=== PATIENT | male | born 1990 | race Caucasian/White ===

== ENCOUNTER 2024-03-04 13:31 | Emergency (ER) | payer MEDICAID, SELFPAY ==
--- OUTSIDE RECORDS SUMMARY | 2024-03-04 13:37 | XMS_ITS | Encounter Summary ---
Author Organization [facility] Address [address] [place] [id number] Care Team Providers Care Remote Computer Terminal Operator Name Role Phone Allyssa Vogel PA-C Primary Care Provider +1- [phone] Reason for Visit * Reason Comments Med Refill Encounter Details Date Type Department Care Team (Late st Contact Info) Description 01/06/2020 Refill [facility] [address]60 [facility] [address] [place] [address] Nathaniel Coats MD 1760 [facility] [address] [place] [address] Social History Tobacco Use Types Packs/Day Years Used Date Smoking Tobacco: Every Day Cigarettes Smokeless Tobacco: Never Alcohol Use Standard Drinks/Week Comments Yes 0 (1 standard drink = 0.6 oz pur e alcohol) PHQ-2 Answer Date Recorded Retired Total Score 7 11/20/2019 Sex and Gender Information Value Date Recorded Sex Assigned at Not on file Legal Sex Male 10:15 AM EST Gender Identity Not on file Sexual Orientation Not on file documented as of this encounter Plan of Treatment Not on file documented as of this encounter Visit Diagnoses Not on filedocumented in this encounter Care Teams Remote Computer Terminal Operator Relationship Specialty Start Date End Date Allyssa Vogel PA-C [address] [facility] [address] [place] [address] PCP - General Family Medicine 08/12/16 documented as of this encounter
--- OUTSIDE RECORDS SUMMARY | 2024-03-04 13:37 | XMS_ITS | Encounter Summary ---
Author Organization Healthcare Address [address] [place] [address] Care Team Providers Care Deputy Administrator Name Role Phone Bijan Mancera MD Unavailable [phone] Encounter Details Date Type Department Care Team (Late Contact Info) Description 10/04/2023 Orders Only External Location [address] [place] [address] Provider, External Social History Tobacco Use Types Packs/Day Years Used Date Smoking Tobacco: Every Day Alcohol Use Standard Drinks/Week Comments Yes 0 (1 standard drink = 0.6 oz pur e alcohol) Sex and Gender Information Value Date Recorded Sex Assigned at Not on file Legal Sex Male 7:42 PM EDT Gender Identity Not on file Sexual Orientation Not on file documented as of this encounter Plan of Treatment Upcoming Encounters Date Type Department Care Team (Late st Contact Info) Description 03/21/2024 7:45 AM EST Clinical Support [facility] [address] [facility] [facility] [address] [place] [address] 03/21/2024 9:20 AM EST Office Visit [facility] [address] [place] [address] Jean Greer MD [address] [place] [address] 03/21/2024 10:00 AM EST Office Visit [facility] [place] [address] [place] [address] Surgeon, Transplant Liver documented as of this encounter Procedures Procedure Name Priority Date/Time Associated Diagnosis Comments US OUTSIDE IMAGES 10/04/2023 10:00 AM EDT documented in this encounter Results * US OUTSIDE IMAGES (10/04/2023 10:00 AM EDT) Anatomical Region Laterality Modality Ultrasound 10/04/2023 10:0 0 AM EDT us External Provider IMG US PROCEDURES Final Result documented in this encounter Visit Diagnoses Not on filedocumented in this encounter Care Teams Deputy Administrator Relationship Specialty Start Date End Date Bijan Mancera MD [address] [place] [address] Referring Physician Gastroenterology 02/23/24 documented as of this encounter
--- OUTSIDE RECORDS SUMMARY | 2024-03-04 13:37 | XMS_ITS | Encounter Summary ---
Author Organization [facility] Address [address] [place] [address] Care Team Providers Care Keyboarding Clerk Name Role Phone Allyssa Vogel PA-C Primary Care Provider [phone]- [phone] Reason for Visit * Reason Comments Follow-up Labs in August showed l ow testosterone and is here to discuss Encounter Details Date Type Department Care Team (Late st Contact Info) Description 11/02/2016 2:15 PM EDT Office Visit [facility] [address] [place] [address] [place] [phone] Shantanu Sánchez PA [address] [address] Obesity (BMI 35.0-39.9 without comorbidity) (Primary Dx); Primary insomnia Social History Tobacco Use Types Packs/Day Years Used Date Smoking Tobacco: Every Day Smokeless Tobacco: Never Alcohol Use Standard Drinks/Week Comments Yes 0 (1 standard drink = 0.6 oz pur e alcohol) Sex and Gender Information Value Date Recorded Sex Assigned at Not on file Legal Sex Male 10:15 AM EST Gender Identity Not on file Sexual Orientation Not on file documented as of this encounter Last Filed Vital Signs Vital Sign Reading Time Taken Comments Blood Pressure 148/92 11/02/2016 1:48 PM EDT Pulse 80 11/02/2016 1:48 PM EDT Temperature - - Respiratory Rate 14 11/02/2016 1:48 PM EDT Oxygen Saturation 98% 11/02/2016 1:48 PM EDT Inhaled Oxygen Concentration - - Weight 134 kg (294 lb 9.6 oz) 11/02/2016 1:48 PM EDT Height 188 cm (6' 2 ) 11/02/2016 1:48 PM EDT Body Mass Index 37.82 11/02/2016 1:48 PM EDT documented in this encounter Progress Notes * Shantanu Sánchez PA - 11/02/2016 2:15 PM EDT Sundeep De Guzman is a 26 y.o. male History of Present Illness Patient 26-year-old white male who comes in for follow-up of lab work, and blood work showed a testosterone level over 500 but a free testosterone at 3.1. Patient's lipid level showed a low HDL 29. Fatigue no energy states she's having significant been weight is 294 pounds, he's fatigue throughout the day. No source breath no chest pain. Patient pleasant insomnia trouble falling asleep staying asleep only sleeps 4-5 hours per night, his tried trazodone with minimal success patient states she has trouble staying asleep once falling asleep. States he feels tired he wakes up in the morning like try something else rather than trazodone. Denies any SI/HI. Patient does have some snoring at night The following portions of the patient's history were reviewed and updated as appropriate: allergies, current medications, past social history and problem list Review of Systems Constitutional: Negative for appetite change, diaphoresis, fatigue and unexpected weight change. Eyes: Negative for visual disturbance. Respiratory: Negative for cough, chest tightness and shortness of breath. Cardiovascular: Negative for chest pain, palpitations and leg swelling. Gastrointestinal: Negative for diarrhea, nausea and vomiting. Endocrine: Negative for polydipsia, polyphagia and polyuria. Skin: Negative for color change and rash. Neurological: Negative for dizziness, syncope, weakness, light-headedness, numbness and headaches. Objective Vitals: 11/02/16 1348 BP: 148/92 Pulse: 80 Resp: 14 SpO2: 98% Physical Exam Constitutional: He appears well-developed and well-nourished. Neck: Neck supple. No JVD present. No thyromegaly present. Cardiovascular: Normal rate, regular rhythm, normal heart sounds, intact distal pulses and normal pulses. No murmur heard. Pulmonary/Chest: Effort normal and breath sounds normal. No respiratory distress. Abdominal: Soft. Bowel sounds are normal. There is no hepatosplenomegaly. There is no tenderness. Musculoskeletal: He exhibits no edema. Lymphadenopathy: He has no cervical adenopathy. Neurological: No sensory deficit. Skin: Skin is warm and dry. He is not diaphoretic. Nursing note and vitals reviewed. Assessment/Plan Diagnoses and all orders for this visit: Obesity (BMI 35.0-39.9 without comorbidity) Primary insomnia - hydrOXYzine (VISTARIL) 50 MG capsule; Take 1 capsule by mouth 3 (Three) Times a Day As Needed forItching. # Phentermine 37.5mg qd #30 x 2 refills Long discussion with patient about weight loss informed patient if he can lose 10% of his body weight should improve his free testosterone level, gave him a weight loss goal of 30 pounds in the next 3-4 months. counseled patient on diet and exercise discussed ways to improve. Follow-up one month #2 discussed ways to improve sleep start hydroxyzine 50 mg 1 by mouth daily at bedtime dispense 30??2 refills documented in this encounter Plan of Treatment Not on file documented as of this encounter Visit Diagnoses Diagnosis Obesity (BMI 35.0-39.9 without comorbidity)- Primary Primary insomnia Persistent disorder of initiating or maintaining sleep documented in this encounter Care Teams Keyboarding Clerk Relationship Specialty Start Date End Date Allyssa Vogel, MARYCARMENC [address] [place] [address] PCP - General Family Medicine 08/12/16 documented as of this encounter
--- OUTSIDE RECORDS SUMMARY | 2024-03-04 13:37 | XMS_ITS | Encounter Summary ---
Author Organization [facility] Address [address] [place] [id number] Care Team Providers Care Gyroscope Technician Name Role Phone Allyssa Vogel PA-C Primary Care Provider [phone]- [phone] Reason for Visit * Reason Comments Med Refill Obesity Encounter Details Date Type Department Care Team (Late st Contact Info) Description 07/07/2021 4:15 PM EDT Telemedicine [facility] [address] [place] [phone] Allyssa Vogel PA-C [address] [address] Obesity (BMI 30-39.9) (Primary Dx) Social History Tobacco Use Types Packs/Day Years [...] on file documented as of this encounter Progress Notes * Allyssa Vogel PA-C - 07/07/2021 4:15 PM EDT Subjective Hunter De Guzman is a 30 y.o. male Med Refill and Obesity History of Present Illness Patient presents and consents for telehealth/video visit examination. Patient is being seen today for follow-up on obesity he is due for refills of his phentermine. He states that this medicine has been continue to work well for him he ran out about a month ago, he finds it works best if he takes 1 every other day. He is continuing to try to follow a low calorie dietto lose weight but continues to be in obese range with his BMI, his weight today is 298. He denies any adverse effects from his medication. Video visit 15 minutes in length. The following portions of the patient's history were reviewed and updated as appropriate: allergies, current medications, past social history and problem list Review of Systems Constitutional: Positive for activity change and appetite change. Negative for unexpected weight change. Respiratory: Negative. Cardiovascular: Negative for chest pain. Gastrointestinal: Negative for abdominal distention, abdominal pain, diarrhea and nausea. Psychiatric/Behavioral: Negative for dysphoric mood. The patient is not nervous/anxious. Objective There were no vitals filed for this visit. BMI today is 36. Physical Exam Vitals reviewed: Weight 298. Constitutional: General: He is not in acute distress. Appearance: Normal appearance. He is well-developed. He is obese. He is not ill- appearing, toxic-appearing or diaphoretic. Comments: Obesity noted HENT: Head: Normocephalic and atraumatic. Eyes: Conjunctiva/sclera: Conjunctivae normal. Neck: Thyroid: No thyromegaly. Pulmonary: Effort: Pulmonary effort is normal. Skin: General: Skin is dry. Coloration: Skin is not pale. Findings: No erythema or rash. Neurological: Mental Status: He is alert and oriented to person, place, and time. Coordination: Coordination normal. Psychiatric: Attention and Perception: He is attentive. Mood and Affect: Mood normal. Speech: Speech normal. Behavior: Behavior normal. Thought Content: Thought content normal. Judgment: Judgment normal. Assessment/Plan Diagnoses and all orders for this visit: 1. Obesity (BMI 30-39.9) (Primary) Will send prescription for phentermine 37.5 mg tablets 1 daily for weight loss due to obesity #30 with 3 refills and advised patient to follow-up in the office in 3 months for recheck of weight and for annual physical. As part of this patient's treatment plan, patient will be prescribed controlled substances. The patient has been made aware of appropriate use of such medications, including potential risk of somnolence, limited ability to drive and /or work safely, and potential for dependence or overdose. It has also been made clear that these medications are for use by this patient only, without concomitant use of alcohol or other substances unless prescribed.Controlled substance status of medication discussed with patient, discussed risks of medication including abuse potential and diversion potential andneed to follow up for reevaluation appointment in order to receive further refills. Part of this note may be an electronic binder cutter hand/translation of spoken language to printed textusing the Paytrailation System. documented in this encounter Plan of Treatment Not on file documented as of this encounter Visit Diagnoses Diagnosis Obesity (BMI 30-39.9)- Primary documented in this encounter Care Teams Gyroscope Technician Relationship Specialty Start Date End Date Allyssa Vogel PA-C [address] [place] [address] PCP - General Family Medicine 08/12/16 documented as of this encounter
--- OUTSIDE RECORDS SUMMARY | 2024-03-04 13:37 | XMS_ITS | Encounter Summary ---
Author Organization [facility] Address [address] [place] [id number] Care Team Providers Care Storage Management Architect Name Role Phone Allyssa Vogel PA-C Primary Care Provider [phone]- [phone] Reason for Visit * Reason Comments Med Refill Encounter Details Date Type Department Care Team (Late st Contact Info) Description 08/16/2023 Refill [facility] [address] [facility] [address] [place] [phone] Allyssa Vogel PA-C [address] [facility] [address] [place], [place] [id number] Social History Tobacco Use Types Packs/Day Years Used Date Smoking Tobacco: Every Day Cigarettes Smokeless Tobacco: Never Alcohol Use Standard Drinks/Week Comments Yes 0 (1 standard drink = 0.6 oz pur e alcohol) PHQ-2 Answer Date Recorded Retired PHQ-9: Brief Depression Severity Measure Score 0 01/12/2022 Abuse Screen Answer Date Recorded Unsafe at Home or Work/School Not on file Feels Threatened by Someone? Not on file 01/2023 Does Anyone Keep You from Co ntacting Others or Doint Things Outside the Home? Not on file 01/19/2023 Physical Sign of Abuse Present Not on file 1 Housing Stability Answer Date Recorded Current Living Arrangements Not on file 01/10 Potentially Unsafe Housing Conditions Not on mica e 01/19/2023 Family and Community Support Answer Jose e Recorded Help with Day-to-Day Activities Not on file 01/19/2023 Lonely or Isolated Not on file 01/19/2023 Employment Answer Date Recorded Do you want help finding or keeping work or a rere b? Not on file 01/19/2023 Disabilities Answer Date Recorded Concentrating, Remembering, or Making Decisions Difficulty Not on file 01/19/2023 Doing Errands Independently Difficulty Not on fi le 01/19/2023 Education Answer Date Recorded Help with school or training? Not on file Preferred Language Not on file 01/19/2023 PHQ-2 Answer Date Recorded Retired PHQ-9: Brief Depression Severity Measure Score 0 06/21/2023 Sex and Gender Information Value Date Recorded Sex Assigned at Not on file Legal Sex Male 10:15 AM EST Gender Identity Not on file Sexual Orientation Not on file documented as of this encounter Plan of Treatment Not on file documented as of this encounter Visit Diagnoses Not on filedocumented in this encounter Care Teams Storage Management Architect Relationship Specialty Start Date End Date Allyssa Vogel, PADanielleC [address] [facility] [place] [address] PCP - General Family Medicine 08/12/16 documented as of this encounter
--- OUTSIDE RECORDS SUMMARY | 2024-03-04 13:37 | XMS_ITS | Encounter Summary ---
Author Organization [facility] Address [address] [place] [id number] Care Team Providers Care Trolley Car Overhauler Name Role Phone Allyssa Vogel PA-C Primary Care Provider +1- [phone] Reason for Visit * Reason Onset Date Comments Med Refill 09/06/2020 Encounter Details Date Type Department Care Team (Late st Contact Info) Description 09/06/2020 Refill [facility] 1760 [facility] [address] [place] [phone] Shantanu Sánchez PA [address] [place], [place] [id number] Obesity (BMI 30-39.9) Social History Tobacco Use Types Packs/Day Years [...] on file documented as of this encounter Miscellaneous Notes * Telephone Encounter - Nell Parra MA - 09/06/2020 4:08 PM EDT Office visit with Marcellus documented in this encounter Plan of Treatment Not on file documented as of this encounter Visit Diagnoses Diagnosis Obesity (BMI 30-39.9) documented in this encounter Care Teams Trolley Car Overhauler Relationship Specialty Start Date End Date Allyssa Vogel PA-C [address] [place] [address] PCP - General Family Medicine 08/12/16 documented as of this encounter
--- OUTSIDE RECORDS SUMMARY | 2024-03-04 13:37 | XMS_ITS | Encounter Summary ---
[facility] Address [address] [place] [phone] Care Team Providers Care Plate Mounter Name Role Phone Allyssa Vogel PA-C Primary Care Provider +1- [phone] Encounter Details Date Type Department Care Team (Late st Contact Info) Description 07/03/2021 Telephone [facility]ILY MEDICINE [address] [facility] [address] [place] [phone] Allyssa Vogel PA-C [address] [facility] [address] [place] [address] Social History Tobacco Use Types Packs/Day [...] on filedocumented in this encounter Care Teams Plate Mounter Relationship Specialty Start Date End Date Allyssa Vogel PA-C [address] [facility] [address] [place] [address] PCP - General Family Medicine 08/12/16 documented as of this encounter
--- OUTSIDE RECORDS SUMMARY | 2024-03-04 13:37 | XMS_ITS | Encounter Summary ---
[facility] Address [address] [place] [phone] Care Team Providers Care Clerical Office Worker Name Role Phone Allyssa Vogel PA-C Primary Care Provider +1- [phone] Reason for Visit * Reason Comments Obesity RF phentermine Encounter Details Date Type Department Care Team (Late st Contact Info) Description 01/07/2021 1:00 PM EDT Office Visit [facility] 1760 [facility] [address] [place] [phone] Shantanu Sánchez PA [address] [facility] [address] [place] [address] Class 2 obesity with body mass index (BMI) of 35.0 to 35.9 in adult, unspecified obesity type, unspecified whether serious comorbidity present (Primary Dx) Social History Tobacco Use Types [...] Sign Reading Time Taken Comments Blood Pressure 146/82 01/07/2021 1:09 PM EDT Pulse 92 01/07/2021 1:09 PM EDT Temperature 36 ??C (96.8 ??F) 01/07/2021 1:09 PM EDT Respiratory Rate 16 01/07/2021 1:09 PM EDT Oxygen Saturation 98% 01/07/2021 1:09 PM EDT Inhaled Oxygen Concentration - - Weight 135 kg (298 lb 3.2 oz) 01/07/2021 1:09 PM EDT Height 193 cm (6' 3.98 ) 01/07/2021 1:09 PM EDT Body Mass Index 36.31 01/07/2021 1:09 PM EDT documented in this encounter Progress Notes * Shantanu Sánchez PA - 01/07/2021 1:00 PM EDT Subjective Hunter De Guzman is a 30 y.o. male Obesity (RF phentermine ) History of Present Illness Patient is a 30-year-old white male who comes in complaining of obesity BMI is 36.31 has gained 6 pounds since last visit he states his diet has not been successful, drinking more soda no shortness of breath no chest pain feels tired fatigue no energy The following portions of the patient's history [...] weakness, light-headedness, numbness and headaches. Objective Vitals: 01/07/21 1309 BP: 146/82 Pulse: 92 Resp: 16 Temp: 96.8 ??F (36 ??C) SpO2: 98% Physical Exam Vitals and nursing note reviewed. Constitutional: Appearance: He is well-developed. He is not diaphoretic. Neck: Thyroid: No thyromegaly. Vascular: No JVD. Cardiovascular: Rate and Rhythm: Normal rate and regular rhythm. Pulses: Normal pulses. Heart sounds: No murmur heard. Pulmonary: Effort: No respiratory distress. Musculoskeletal: Cervical back: Neck supple. Lymphadenopathy: Cervical: No cervical adenopathy. Skin: General: Skin is warm and dry. Assessment/Plan Diagnoses and all orders for this visit: 1. Class 2 obesity with body mass index (BMI) of 35.0 to 35.9 in adult, unspecified obesity type, unspecified whether serious comorbidity present (Primary) #1 phentermine 37.5 mg 1 p.o. every day dispense 30x3 refills Plan schedule patient about diet and exercise low-carb low calorie diet exercise 3-5 times per day for 30 minutes I spent 15 minutes in patient care: Reviewing records prior to the visit, examining the patient, entering orders and documentation Please note that portions of this document were completed with a voice recognition program. Effortswere made to edit the dictations, but occasionally words are mis-transcribed documented in this encounter Plan of Treatment Not on file documented as of this encounter Visit Diagnoses Diagnosis Class 2 obesity with body mass index (BMI) of 35.0 to 35.9 in adult, unspecified obesity type, unspecified whether serious comorbidity present- Primary documented in this encounter Care Teams Clerical Office Worker Relationship Specialty Start Date End Date Allyssa Vogel PA-C [address] [place] [address] PCP - General Family Medicine 08/12/16 documented as of this encounter
--- OUTSIDE RECORDS SUMMARY | 2024-03-04 13:37 | XMS_ITS | Encounter Summary ---
Author [facility] Address [address] [place] [phone] Care Team Providers Care Printer Floor Covering Assistant Name Role Phone Allyssa Vogel PA-C Primary Care Provider +1- [phone] Encounter Details Date Type Department Care Team (Late st Contact Info) Description 04/21/2016 Telephone [facility]ILY MEDICINE [address]60 [facility] [address] [place] [phone] Allyssa Vogel PA-C [address]60 [facility] [address] [place] [address] Social History Tobacco Use Types Packs/Day Years Used Date Smoking Tobacco: Never Assessed Sex and Gender Information Value Date Recorded Sex Assigned at Not on file Legal Sex Male 10:15 AM EST Gender Identity Not on file Sexual Orientation Not on file documented as of this encounter Plan of Treatment Not on file documented as of this encounter Visit Diagnoses Not on filedocumented in this encounter Care Teams Printer Floor Covering Assistant Relationship Specialty Start Date End Date Allyssa Vogel PA-C [address] [facility] [address] [place] [address] PCP - General Family Medicine 08/12/16 documented as of this encounter
--- OUTSIDE RECORDS SUMMARY | 2024-03-04 13:37 | XMS_ITS | Encounter Summary ---
Author Organization [facility] Address [address] [place] [id number] Care Team Providers Care Lining Setter Name Role Phone Allyssa Vogel PA-C Primary Care Provider +1- [phone] Reason for Visit * Reason Comments Obesity RF phentermine Encounter Details Date Type Department Care Team (Late st Contact Info) Description 01/09/2020 4:00 PM EDT Office Visit [facility] FAMILY [facility]INE [address] [facility] [address] [place] [phone] Shantanu Sánchez PA [address] [facility] [address] [place] [phone] Morbid (severe) obesity due to excess calories (Primary Dx) Social History Tobacco Use Types [...] Sign Reading Time Taken Comments Blood Pressure 130/86 01/09/2020 2:37 PM EDT Pulse 72 01/09/2020 2:37 PM EDT Temperature 36.3 ??C (97.3 ??F) 01/09/2020 2:37 PM ED T Respiratory Rate 16 01/09/2020 2:37 PM EDT Oxygen Saturation 98% 01/09/2020 2:37 PM EDT Inhaled Oxygen Concentration - - Weight 128 kg (282 lb) 01/09/2020 2:37 PM EDT Height 193 cm (6' 3.98 ) 01/09/2020 2:37 PM EDT Body Mass Index 34.34 01/09/2020 2:37 PM EDT documented in this encounter Progress Notes * Shantanu Sánchez PA - 01/09/2020 4:00 PM EDT Subjective Hunter De Guzman is a 29 y.o. male Obesity (RF phentermine) History of Present Illness 29-year-old white male who comes in for follow-up of obesity patient lost weight he is doing well exercising lost over 5 pounds last visit patient is watching his diet and exercise feels good on medication he states he is tried exercise low-carb low calorie diet. Patient is trying to lose weight etc. BMI is 34.34 The following portions of the patient's history [...] weakness, light-headedness, numbness and headaches. Objective Vitals: 01/09/20 1437 BP: 130/86 Pulse: 72 Resp: 16 Temp: 97.3 ??F (36.3 ??C) SpO2: 98% Physical Exam Vitals signs and nursing note reviewed. Constitutional: Appearance: He is well-developed. He is not diaphoretic. Neck: Musculoskeletal: Neck supple. Thyroid: No thyromegaly. Vascular: No JVD. Cardiovascular: Rate and Rhythm: Normal rate and regular rhythm. Pulses: Normal pulses. Heart sounds: Normal heart sounds. No murmur. Pulmonary: Effort: Pulmonary effort is normal. No respiratory distress. Breath sounds: Normal breath sounds. Abdominal: General: Bowel sounds are normal. Palpations: Abdomen is soft. Tenderness: There is no abdominal tenderness. Lymphadenopathy: Cervical: No cervical adenopathy. Skin: General: Skin is warm and dry. Neurological: Sensory: No sensory deficit. Assessment/Plan Hunter was seen today for obesity. Diagnoses and all orders for this visit: Morbid (severe) obesity due to excess calories (CMS/[facility]) #1 phentermine 37.5 mg 1 pill dispense 30??2 refills Spent 16 minutes with patient discussing treatment plan, long-term treatment plan, short-term treatment. Discussed low-carb low calorie diet exercise 3-5 times per week documented in this encounter Plan of Treatment Not on file documented as of this encounter Visit Diagnoses Diagnosis Morbid (severe) obesity due to excess calories- Primary documented in this encounter Care Teams Lining Setter Relationship Specialty Start Date End Date Allyssa Vogel, MARYCARMENC [address] [facility] [address] [place] [address] PCP - General Family Medicine 08/12/16 documented as of this encounter
--- OUTSIDE RECORDS SUMMARY | 2024-03-04 13:37 | XMS_ITS | Encounter Summary ---
Author Organization [facility] Address [address] [place] [id number] Care Team Providers Care White Washer Name Role Phone Allyssa Vogel PA-C Primary Care Provider [phone]- [phone] Reason for Visit * Reason Onset Date Comments Med Refill 10/02/2019 Encounter Details Date Type Department Care Team (Late st Contact Info) Description 10/02/2019 Refill [facility] FAMILY MEDICINE [address] [facility] [address] [place] [phone] Nathaniel Coats MD [address] [facility] [address] [place] [address] Class 2 obesity with body [...] encounter Miscellaneous Notes * Telephone Encounter - Radha Regalado MA - 10/02/2019 3:46 PM EDT Allyssa completed video visit with patient today and needs Phentermine signed off. This was calledinto the patients pharm voicemail Fwd to Dr. V to sign off documented in this encounter Plan of Treatment Not on file documented as of this encounter Visit Diagnoses Diagnosis Class 2 obesity with body mass index (BMI) of 35.0 to 35.9 in adult, unspecified obesity type, unspecified whether serious comorbidity present- Primary documented in this encounter Care Teams White Washer Relationship Specialty Start Date End Date Allyssa Vogel, MARYCARMENC [address] [place] [address] PCP - General Family Medicine 08/12/16 documented as of this encounter
--- OUTSIDE RECORDS SUMMARY | 2024-03-04 13:37 | XMS_ITS | Encounter Summary ---
[facility] Address [address] [place] [id number] Care Team Providers Care Associate Professor Of Biblical Studies Name Role Phone Allyssa Vogel PA-C Primary Care Provider +1- [phone] Encounter Details Date Type Department Care Team (Late st Contact Info) Description 01/17/2019 Telephone [facility] FAMILY MEDICINE [address] [facility] [address] [place] [phone] Shantanu Sánchez PA [address] [facility] [address] [place] [phone] Social History Tobacco Use Types Packs/Day Years [...] Telephone Encounter - Nell Parra MA - 01/17/2019 2:19 PM EDT I clarified with Cruz that phentermine should've been qd-not qhs. * Telephone Encounter - Nell Parra MA - 01/17/2019 2:19 PM EDT ----- Message from Bharti Smith sent at 01/17/2019 2:10 PM EDT ----- Contact: ANAI/CORNELL KINGSTON., CRUZ, PT. WAS SEEN TODAY. CRUZ IS NEEDING A CLARIFICATION ON: FASTIN, 37 1/2 MG., TAKEN 1 @ BEDTIME; ?INGTHIS: NOT TO BE TAKEN @ BEDTIME/HE WILL BE UP ALL NIGHT. CONTACT CRUZ BACK @ [facility]. documented in this encounter Plan of Treatment Not on file documented as of this encounter Visit Diagnoses Not on filedocumented in this encounter Care Teams Associate Professor Of Biblical Studies Relationship Specialty Start Date End Date Allyssa Vogel, PADanielleC [address] [facility] [address] PCP - General Family Medicine 08/12/16 documented as of this encounter
--- OUTSIDE RECORDS SUMMARY | 2024-03-04 13:37 | XMS_ITS | Encounter Summary ---
Author Organization [facility] Address [address] [place] [address] Care Team Providers Care Real Estate Investment Analyst Name Role Phone Bijan Mancera MD Unavailable [phone] Reason for Referral * Consultation (Routine) - Pending Review Specialty Diagnoses / Procedures Referred By Contac t Referred To Contact Transplant Diagnoses End-stage liver disease (CMS/HCC) Morteza Etienne MD [address] [address] Phone: tel: fax: [facility] [address] [address] Phone: tel: fax: Referral ID Status Reason Start Date Expiration Date Visits Requested Visits Authorized [id number] Pending Review Specialty Services Required 4 08/25/2025 1 1 Reason for Visit * Reason Comments Appointment Scheduling Encounter Details Date Type Department Care Team (Late st Contact Info) Description 02/24/2024 Telephone [facility] [address] [phone] Connie Fonseca [facility] [address] [place] [address] Appointment (Scheduling) Social History Tobacco Use Types Packs/Day Years [...] encounter Miscellaneous Notes * Telephone Encounter - Connie Fonseca - 02/24/2024 2:16 PM EST Called to schedule New Patient Pre-Liver Initial Clinic Evaluation - spoke to Ms Barr - scheduled for 03/21/2024 at 7:30am. Mailed New Patient paperwork per request. Notified referring. Additional records and images requested from [facility]. documented in this encounter Plan of Treatment Upcoming Encounters Date Type Department Care Team (Late st Contact Info) Description 03/21/2024 7:45 AM EST Clinical Support [facility] [place] [address] [facility] [address] [place] [address] 03/21/2024 9:20 AM EST Office Visit [facility] [place] [address] [place] [address] Jean Greer MD [address] [facility] [address] [place] [address] 03/21/2024 10:00 AM EST Office Visit [facility] [address] [facility] [address] [place] [address] Surgeon, Transplant Liver Scheduled Orders Name Type Priority Associated Diagnoses Orde r Schedule ABO/Rh Lab Routine End-stage liver disease (CMS/HCC) Expected: 03/21/2024 (Approximate), Expires: 08/23/2025 Alpha fetoprotein, serum Lab Routine End-stage liver disease (CMS/HCC) Expected: 03/21/2024 (Approximate), Expires: 08/23/2025 Hemogram (CBC) Lab Routine End-stage liver disease (CMS/HCC) Expected: 03/21/2024 (Approximate), Expires: 08/23/2025 Comprehensive metabolic panel Lab Routine End-stage liver disease (CMS/HCC) Expected: 03/21/2024 (Approximate), Expires: 08/23/2025 Protime-INR Lab Routine End-stage liver disease (CMS/HCC) Expected: 03/21/2024 (Approximate), Expires: 08/23/2025 Comprehensive Urine Drug Screening, Qualitative Assay, >= 27 Drug Classes Lab Routine End-stage liver disease (CMS/HCC) Expected: 03/21/2024 (Approximate), Expires: 08/23/2025 Nicotine Cotinine Metabolite Lab Routine End-stage liver disease (CMS/HCC) Expected: 03/21/2024 (Approximate), Expires: 08/23/2025 Pain Management, Quantitative Urine Drug Testing Lab Routine End-stage liver disease (CMS/HCC) Expected: 03/21/2024 (Approximate), Expires: 08/23/2025 Alcohol Urine Lab Routine End-stage liver disease (CMS/HCC) Expected: 03/21/2024 (Approximate), Expires: 08/23/2025 Hepatitis C Antibody Lab Routine End-stage liver disease (CMS/HCC) Expected: 03/21/2024 (Approximate), Expires: 08/23/2025 Hepatitis B Surface Antigen Lab Routine End-stage liver disease (CMS/HCC) Expected: 03/21/2024 (Approximate), Expires: 08/23/2025 HEPATITIS B SURFACE ANTIBODY, QUANTITATIVE Lab Routine End-stage liver disease (CMS/HCC) Expected: 03/21/2024 (Approximate), Expires: 08/23/2025 Hepatitis A Antibody IgG Lab Routine End-stage liver disease (CMS/HCC) Expected: 03/21/2024 (Approximate), Expires: 08/23/2025 Scheduled Referrals Name Type Priority Associated Diagnoses Order Schedule Initial Clinic Evaluation - Transplant Hepatology Outpatient Referral Routine End-stage liver disease (CMS/HCC) 1 Occurrences starting 02/24/2024 until 08/23/2025 documented as of this encounter Visit Diagnoses Diagnosis End-stage liver disease (CMS/HCC)- Primary Other sequelae of chronic liver disease documented in this encounter Care Teams Real Estate Investment Analyst Relationship Specialty Start Date End Date Bijan Mancera MD [address] [place] [address] Referring Physician Gastroenterology 02/23/24 documented as of this encounter
--- OUTSIDE RECORDS SUMMARY | 2024-03-04 13:37 | XMS_ITS | Encounter Summary ---
Author Organization [facility] Address [address] [place] [id number] Care Team Providers Care Semiconductor Manufacturing Technician Name Role Phone Allyssa Vogel PA-C Primary Care Provider [phone] Reason for Visit * Reason Comments Hypertension Stress Encounter Details Date Type Department Care Team (Late st Contact Info) Description 06/21/2023 1:30 PM EDT Office Visit [facility]ILY MEDICINE [address] [place] [address] [place] [phone] Allyssa Vogel PA-C [address] [facility] [address] [place] [phone] Bronchitis (Primary Dx); Hypertension, unspecified type; Fatigue, unspecified type Social History Tobacco Use Types Packs/Day Years Used Date Smoking Tobacco: Every Day Cigarettes Smokeless Tobacco: Never Tobacco Cessation:Ready to Q uit: No; Counseling Given: Yes Alcohol Use Standard Drinks/Week Comments Yes 0 [...] Sign Reading Time Taken Comments Blood Pressure 152/100 06/21/2023 1:31 PM EDT Pulse 100 06/21/2023 1:31 PM EDT Temperature - - Respiratory Rate 20 06/21/2023 1:31 PM EDT Oxygen Saturation 99% 06/21/2023 1:31 PM EDT Inhaled Oxygen Concentration - - Weight 149 kg (329 lb) 06/21/2023 1:31 PM EDT Height 190.5 cm (6' 3 ) 06/21/2023 1:31 PM EDT Body Mass Index 41.12 06/21/2023 1:31 PM EDT documented in this encounter Progress Notes * Allyssa Vogel PA-C - 06/21/2023 1:30 PM EDT Subjective Hunter De Guzman is a 32 y.o. male Hypertension and Stress History of Present Illness Hunter De Guzman, 1990, presents to discuss high blood pressure and stress. The patient went to [facility] last week to get phentermine for weight loss. They checked his blood pressure, and it was high. He has been to [facility] before, and it has never been a problem. He felt absolutely horrible that day and the next day he felt the same. He feels good other than a sinus infection. He was dizzy and felt like he was drunk, and he had a challenging time focusing and concentrating and felt foggy headed. He has gained weight. He has a lot of stress. He is not taking any decongestants. He denies any chest pain or heart pain. He has been coughing up yellow phlegm. He thinks a lot of it is coming from his weight. He has cut out drinking pop, and he does not smoke cigarettes anymore, but he does vape. He was not given a prescription for phentermine. He does not like taking medications. He does not sleep well. He snores loudly, and he normally sleeps around 5 hours a night. He has a family history of high blood pressure. The following portions of the patient's history were reviewed and updated as appropriate: allergies, current medications, past social history and problem list Review of Systems Constitutional: Negative for fatigue and unexpected weight change. HENT: Positive for congestion. Respiratory: Positive for cough. Negative for chest tightness and shortness of breath. Cardiovascular: Negative for chest pain, palpitations and leg swelling. Gastrointestinal: Negative for nausea. Skin: Negative for color change and rash. Neurological: Positive for light-headedness and headaches. Negative for dizziness, syncope and weakness. Psychiatric/Behavioral: Positive for confusion, decreased concentration and sleep disturbance. Objective Vitals: 06/21/23 1331 BP: 152/100 Pulse: 100 Resp: 20 SpO2: 99% Physical Exam Vitals and nursing note reviewed. Constitutional: General: He is not in acute distress. Appearance: Normal appearance. He is well-developed. He is obese. He is not ill- appearing, toxic-appearing or diaphoretic. Comments: BMI41 HENT: Head: Normocephalic and atraumatic. Mouth/Throat: Pharynx: Posterior oropharyngeal erythema present. Neck: Vascular: No carotid bruit or JVD. Cardiovascular: Rate and Rhythm: Normal rate and regular rhythm. Pulses: Normal pulses. Heart sounds: Normal heart sounds. No murmur heard. Pulmonary: Effort: Pulmonary effort is normal. No respiratory distress. Breath sounds: Wheezing present. Abdominal: Palpations: Abdomen is soft. Tenderness: There is no abdominal tenderness. Skin: General: Skin is warm and dry. Neurological: Mental Status: He is alert. Psychiatric: Mood and Affect: Mood normal. Behavior: Behavior normal. Thought Content: Thought content normal. Assessment & Plan Diagnoses and all orders for this visit: 1. Bronchitis (Primary) 2. Hypertension, unspecified type 3. Fatigue, unspecified type Other orders - losartan (Cozaar) 100 MG tablet; Take 1 tablet by mouth Daily. For BP Dispense: 30 tablet; Refill: 1 - promethazine-dextromethorphan (PROMETHAZINE-DM) 6.25-15 MG/5ML syrup; Take 5 mL by mouth 4 (Four)Times a Day As Needed for Cough. Dispense: 180 mL; Refill: 0 - cefdinir (OMNICEF) 300 MG capsule; Take 1 capsule by mouth 2 (Two) Times a Day. Dispense: 20 capsule; Refill: 0 1. Bronchitis and sinus infection. I will prescribe an antibiotic and cough syrup. 2. Hypertension. His blood pressure is elevated today. It will take about 2 weeks for his blood pressure to stabilize on the blood pressure medicine. I will start him on a blood pressure medication once a day. 3. Weight management. He was recommended to get back on phentermine. The patient will follow up in 3 weeks. Scribed for Allyssa Vogel PA-C by Baldomero Rogers 06/21/2023 14:19 EDT documented in this encounter Plan of Treatment Not on file documented as of this encounter Visit Diagnoses Diagnosis Bronchitis- Primary Bronchitis, not specified as acute or chronic Hypertension, unspecified type Fatigue, unspecified type documented in this encounter Care Teams Semiconductor Manufacturing Technician Relationship Specialty Start Date End Date Allyssa Vogel PA-C [address] [place] [address] PCP - General Family Medicine 08/12/16 documented as of this encounter
--- OUTSIDE RECORDS SUMMARY | 2024-03-04 13:37 | XMS_ITS | Encounter Summary ---
Author Organization [facility] Address [address] [place] [id number] Care Team Providers Care Aviation Safety Inspector Name Role Phone Allyssa Vogel PA-C Primary Care Provider [phone]- [phone] Reason for Visit * Reason Comments Fatigue C/o fatigue and tir edness all the time; x 2-3 months; says he just doesn't feel right ; has two young kids and said he's never slept well but he just feels different now Anxiety Encounter Details Date Type Department Care Team (Late st Contact Info) Description 11/08/2019 9:00 AM EDT Office Visit [facility] [address] [facility] [address] [place] [address] Shantanu Sánchez PA [address] [facility] [address] [place], [place] [id number] Chest pain, unspecified type (Primary Dx); Anxiety; Fatigue, unspecified type; Gastroesophageal reflux disease without esophagitis Social History Tobacco Use Types Packs/Day Years [...] Sign Reading Time Taken Comments Blood Pressure 146/90 11/08/2019 9:38 AM EDT Pulse 85 11/08/2019 9:38 AM EDT Temperature 36.5 ??C (97.7 ??F) 11/08/2019 9:38 AM ED T Respiratory Rate 15 11/08/2019 9:38 AM EDT Oxygen Saturation 99% 11/08/2019 9:38 AM EDT Inhaled Oxygen Concentration - - Weight 129 kg (284 lb 9.6 oz) 11/08/2019 9:38 AM EDT Height 193 cm (6' 4 ) 11/08/2019 9:38 AM EDT Body Mass Index 34.64 11/08/2019 9:38 AM EDT documented in this encounter Progress Notes * Shantanu Sánchez PA - 11/08/2019 9:00 AM EDTAssociated Order(s): ECG 12 Lead Post-Procedure Diagnose(s): Chest pain, unspecified type Sundeep De Guzman is a 29 y.o. male Fatigue (C/o fatigue and tiredness all the time; x 2-3 months; says he just doesn't feel right ;has two young kids and said he's never slept well but he just feels different now) and Anxiety History of Present Illness Is a pleasant 29-year-old white male who comes in complaining of being tired fatigue for the last 2to 3 months he said he just does not feel right he has had trouble with sleep he just has any energy anxiety has been worse been a lot of stress lately states it causes him trouble sleeping at night fatigue tired he did have some midsternal chest pain radiating the back is also had some episodes ofGERD his last episode of chest pain lasts about 30 minutes he is been having severe heartburn in the last 48 to 72 hours is a smoker smokes 2 packs/day. The following portions of the patient's history [...] weakness, light-headedness, numbness and headaches. Objective Vitals: 11/08/19 0938 BP: 146/90 Pulse: 85 Resp: 15 Temp: 97.7 ??F (36.5 ??C) SpO2: 99% Physical Exam Constitutional: He appears well-developed and [...] not diaphoretic. Nursing note and vitals reviewed. ECG 12 Lead Date/Time: 11/08/2019 4:18 PM Performed by: Shantanu Sánchez PA Authorized by: Shantanu Sánchez PA Comparison: not compared with previous ECG Rhythm: sinus rhythm Rate: normal QRS axis: normal Clinical impression: non-specific ECG Comments: Normal sinus rhythm nonspecific T wave changes Assessment/Plan Hunter was seen today for fatigue and anxiety. Diagnoses and all orders for this visit: Chest pain, unspecified type - Cancel: ECG 12 Lead Anxiety Fatigue, unspecified type - Comprehensive Metabolic Panel; Future - TSH; Future - CBC (No Diff); Future - CBC (No Diff) - TSH - Comprehensive Metabolic Panel Gastroesophageal reflux disease without esophagitis - omeprazole (priLOSEC) 40 MG capsule; Take 1 capsule by mouth Daily. Other orders - ECG 12 Lead #1 discussed ways to reduce anxiety, stop smoking 2. Check labs 3. Start omeprazole 40 mg 1 p.o. every day dispense 30??3 refills Follow-up in 2 weeks * Nathaniel Coats MD - 11/08/2019 9:00 AM EDT I have reviewed the notes, assessments, and/or procedures performed by Marcellus Sánchez PA-C, I concur with his documentation of Hunter De Guzman. documented in this encounter Plan of Treatment Not on file documented as of this encounter Procedures Procedure Name Priority Date/Time Associated Diagnosis Comments ECG 12-LEAD Routine 11/08/2019 9:00 AM EDT Chest pain, unspecified type CBC (NO DIFF) Routine 11/08/2019 12:00 AM EDT Fatigue, unspecified type TSH Routine 11/08/2019 12:00 AM EDT Fatigue, unspecified type COMPREHENSIVE METABOLIC PANEL Routine 11/08/2019 12:00 AM EDT Fatigue, unspecified type documented in this encounter Results * ECG 12-LEAD (11/08/2019 9:00 AM EDT) José Bharti Smith - 11/08/2019 9:00 AM EDT Shantanu Sánchez PA ? 11/08/2019 ??4:23 PM ECG 12 Lead Date/Time: 11/08/2019 4:18 PM Performed by: Shantanu Sánchez PA Authorized by: Shantanu Sánchez PA Comparison: not compared with previous ECG Rhythm: sinus rhythm Rate: normal QRS axis: normal Clinical impression: non-specific ECG Comments: Normal sinus rhythm nonspecific T wave changes Procedure Note hSantanu Sánchez PA - 11/08/2019 9:00 AM EDT Subjective Hunter De Guzman is a 29 y.o. male Fatigue (C/o fatigue and tiredness all the time; x 2-3 months; says hejust doesn't feel right ; has two young kids and said he's never sleptwell but he just feels different now) and Anxiety History of Present Illness Is a pleasant 29-year-old white male who comes in complaining of beingtired fatigue for the last 2 to 3 months he said he just does not feelright he has had trouble with sleep he just has any energy anxiety hasbeen worse been a lot of stress lately states it causes him troublesleeping at night fatigue tired he did have some midsternal chest painradiating the back is also had some episodes of GERD his last episode ofchest pain lasts about 30 minutes he is been having severe heartburn inthe last 48 to 72 hours is a smoker smokes 2 packs/day. The following portions of the patient's history were reviewed and updatedas appropriate: allergies, current medications, past social history andproblem list Review of Systems Constitutional: Negative for appetite change, diaphoresis, fatigue andunexpected weight change. Eyes: Negative for visual disturbance. Respiratory: Negative for cough, chest tightness and shortness of breath. Cardiovascular: Negative for chest pain, palpitations and leg swelling. Gastrointestinal: Negative for diarrhea, nausea and vomiting. Endocrine: Negative for polydipsia, polyphagia and polyuria. Skin: Negative for color change and rash. Neurological: Negative for dizziness, syncope, weakness, light- headedness,numbness and headaches. Objective Vitals: 11/08/19 0938 BP: 146/90 Pulse: 85 Resp: 15 Temp: 97.7 ??F (36.5 ??C) SpO2: 99% Physical Exam Constitutional: He appears well-developed and well-nourished. Neck: Neck supple. No JVD present. No thyromegaly present. Cardiovascular: Normal rate, regular rhythm, normal heart sounds, intactdistal pulses and normal pulses. No murmur heard. Pulmonary/Chest: Effort normal and breath sounds normal. No respiratorydistress. Abdominal: Soft. Bowel sounds are normal. There is no hepatosplenomegaly.There is no tenderness. Musculoskeletal: He exhibits no edema. Lymphadenopathy: He has no cervical adenopathy. Neurological: No sensory deficit. Skin: Skin is warm and dry. He is not diaphoretic. Nursing note and vitals reviewed. ECG 12 Lead Date/Time: 11/08/2019 4:18 PM Performed by: Shantanu Sánchez PA Authorized by: Shantanu Sánchez PA Comparison: not compared with previous ECG Rhythm: sinus rhythm Rate: normal QRS axis: normal Clinical impression: non-specific ECG Comments: Normal sinus rhythm nonspecific T wave changes Assessment/Plan Hunter was seen today for fatigue and anxiety. Diagnoses and all orders for this visit: Chest pain, unspecified type - Cancel: ECG 12 Lead Anxiety Fatigue, unspecified type - Comprehensive Metabolic Panel; Future - TSH; Future - CBC (No Diff); Future - CBC (No Diff) - TSH - Comprehensive Metabolic Panel Gastroesophageal reflux disease without esophagitis - omeprazole (priLOSEC) 40 MG capsule; Take 1 capsule by mouthDaily. Other orders - ECG 12 Lead #1 discussed ways to reduce anxiety, stop smoking 2. Check labs 3. Start omeprazole 40 mg 1 p.o. every day dispense 30? 3 refills Follow-up in 2 weeks Shantanu GRAMAJO ECG ORDERABLES Final R esult * (ABNORMAL) CBC (No Diff) (11/08/2019 12:00 AM EDT) WBC 10.49 3.40 - 10.80 10*3/mm3 [facility] RBC 5.96(H) 4.14 - 5.80 10*6/mm3 [facility] Hemoglobin 16.8 13.0 - 17.7 g/dL [facility] Hematocrit 50.2 37.5 - 51.0 % [facility] MCV 84.2 79.0 - 97.0 fL [facility] MCH 28.2 26.6 - 33.0 pg [facility] MCHC 33.5 31.5 - 35.7 g/dL [facility] RDW 13.7 12.3 - 15.4 % [facility] Platelets 149 140 - 450 10*3/mm3 [facility] Blood 11/08/2019 11/08/2019 Comment:BLOOD Narrative [facility] (AMBULATORY) - 11/08/2019 8:08 PM EDT Performed at: ??[address] ??[id number] Special Effects Specialist: Nathaniel Yanez MD, Phone: ??[phone] Sh[facility] GR[facility] BLOOD ORDERABLES Fi nal Result [facility] (AMBULATORY) [address] [place] [address], [facility] [address] [place] [address], * TSH (11/08/2019 12:00 AM EDT) TSH 0.593 0.270 - 4.200 uIU/mL [facility] Blood 11/08/2019 11/08/2019 Comment:BLOOD Narrative [facility] ([facility]BULATORY) - 11/08/2019 8:08 PM EDT Performed at: ??[address] ??[id number] Special Effects Specialist: Nathaniel Yanez MD, Phone: ??[phone] Shantanu GRAMAJO LAB BLOOD ORDERABLES Fi nal Result [facility] (AMBULATORY) [address] [place] [address], [facility] [address] [place] [address], * (ABNORMAL) Comprehensive Metabolic Panel (11/08/2019 12:00 AM EDT) Pathologist [facility] Glucose 87 65 - 99 mg/dL [facility] BUN 13 6 - 20 mg/dL [facility] Creatinine 0.89 0.76 - 1.27 mg/dL [facility] eGFR Non Am 100 >60 mL/min/1.7 3 [facility] eGFR Am 121 >60 mL/min/1.7 3 [facility] BUN/Creatinine Ratio 14.6 7.0 - 25.0 [facility] Sodium 141 136 - 145 mmol/L [facility] Potassium 5.1 3.5 - 5.2 mmol/L [facility] Chloride 104 98 - 107 mmol/L [facility] Total CO2 28.1 22.0 - 29.0 mmol/L [facility] Calcium 9.3 8.6 - 10.5 mg/dL [facility] Total Protein 7.0 6.0 - 8.5 g/dL [facility] Albumin 4.30 3.50 - 5.20 g/dL [facility] Globulin 2.7 gm/dL [facility] A/G Ratio 1.6 g/dL [facility] Total Bilirubin 0.3 0.0 - 1.2 mg/dL [facility] Alkaline Phosphatase 93 39 - 117 U/L [facility] AST (SGOT) 85(H) 1 - 40 U/L [facility] ALT (SGPT) 97(H) 1 - 41 U/L [facility] Blood 11/08/2019 11/08/2019 Comment:BLOOD Narrative [facility] ([facility]) - 11/08/2019 8:08 PM EDT Performed at: ??[address] ??[id number] Special Effects Specialist: Nathaniel Yanez MD, Phone: ??[phone] [facility] BLOOD ORDERABLES Fi nal Result Performing Organization Address City/State/[facility] Co de Phone Number [facility] (AMBULATORY) [address] [place] [address], [place] [phone] [facility] [address] [place] [address], [place] [phone] documented in this encounter Visit Diagnoses Diagnosis Chest pain, unspecified type- Primary Anxiety Anxiety state, unspecified Fatigue, unspecified type Gastroesophageal reflux disease without esophagitis Esophageal reflux documented in this encounter Care Teams Aviation Safety Inspector Relationship Specialty Start Date End Date Allyssa Vogel PA-C [address] [facility] [address] [place] [address] PCP - General Family Medicine 08/12/16 documented as of this encounter
--- OUTSIDE RECORDS SUMMARY | 2024-03-04 13:37 | XMS_ITS | Encounter Summary ---
Author Organization [facility] Address [address] [place] [address] Care Team Providers Care Grounds/Maintenance Specialist Name Role Phone Allyssa Vgoel PA-C Primary Care Provider [phone]- [phone] Reason for Visit * Reason Comments Foot Pain was at the [facility] place and landed in the foam pit and landed on his LT foot Encounter Details Date Type Department Care Team (Latest Contact Info) Description 11/29/2017 11:38 AM EDT - 11/29/2017 12:23 PM EDT Hospital Encounter [facility] [address] [facility] [address] [place] [address] Sneha Martinez, HIDE AND SKIN FLESHING MACHINE OPERATOR [address] [place] [address] Contusion of left foot, initial encounter (Primary Dx) Discharge Disposition: Home or Self Care Social History Tobacco Use Types Packs/Day Years [...] Sign Reading Time Taken Comments Blood Pressure 129/87 11/29/2017 11:43 AM EDT Pulse 70 11/29/2017 11:43 AM EDT Temperature 36.2 ??C (97.2 ??F) 11/29/2017 11:43 AM E DT Respiratory Rate 18 11/29/2017 11:43 AM EDT Oxygen Saturation 98% 11/29/2017 11:43 AM EDT Inhaled Oxygen Concentration - - Weight 125 kg (275 lb) 11/29/2017 11:43 AM EDT Height 190.5 cm (6' 3 ) 11/29/2017 11:43 AM EDT Body Mass Index 34.37 11/29/2017 11:43 AM EDT documented in this encounter Discharge Instructions * Discharge Instructions* Sneha Martinez APRN - 11/29/2017 12:19 PM EDT Rest, ice, compression, elevation. Ibuprofen and Tylenol for pain. * Attachments The following attachments cannot be sent through Care Everywhere. * Foot Contusion [id number] (Ecuadorean) documented in this encounter Medications at Time of Discharge hydrOXYzine (VISTARIL) 50 MG capsuleIndicatio ns:Primary insomnia Take 1 capsule by mouth 3 (Three) Times a Day As Needed for Itching. 30 capsule 1 11/02/2016 01/17/2019 sildenafil (VIAGRA) 100 MG tabletIndication s:Impotence Take 1 tablet by mouth Daily As Needed for erectile dysfunction. 10 tablet 1 08/12/2016 01/17/2019 documented as of this encounter ED Notes * Sneha Martinez APRN - 11/29/2017 12:16 PM EDT Subjective Mr. De Guzman is a 27 year old male who presents today with left foot pain. Patient was at a kids play place and was climbing the rock wall with his son. Patient fell off rock wall into foam pit, but pitwas quite shallow and patient landed on his foot and felt immediate pain. Patient has broken several bones in his foot previously. Foot Pain Review of Systems Musculoskeletal: Left foot pain Objective Physical Exam Constitutional: He is oriented to person, place, and time. He appears well- developed and well-nourished. No distress. HENT: Head: Normocephalic. Eyes: Pupils are equal, round, and reactive to light. Neck: Normal range of motion. Neck supple. Cardiovascular: Normal rate. Pulmonary/Chest: Effort normal. Musculoskeletal: Left ankle: He exhibits decreased range of motion and swelling. Right foot: There is tenderness and swelling. Neurological: He is alert and oriented to person, place, and time. Skin: Skin is warm. Capillary refill takes 2 to 3 seconds. He is not diaphoretic. Psychiatric: He has a normal mood and affect. His behavior is normal. Judgment and thought content normal. Nursing note and vitals reviewed. BP 129/87 (BP Location: Left arm, Patient Position: Sitting) Pulse 70 Temp 97.2 ??F (36.2 ??C) (Temporal Artery ) Resp 18 Ht 190.5 cm (75 ) Wt 125 kg (275 lb) SpO2 98% BMI 34.37 kg/m?? Past 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: Diagnosis Date ??? Hypertension Social History Social History ??? Marital status: Single Spouse name: N/A ??? Number of children: N/A ??? Years of education: N/A Occupational History ??? Not on file. Social History Main Topics ??? Smoking status: Current Every Day Smoker ??? Smokeless tobacco: Never Used ??? Alcohol use Yes ??? Drug use: No ??? Sexual activity: Not on file Other Topics Concern ??? Not on file Social History Narrative ??? No narrative on file No Known Allergies No current facility-administered medications for this encounter. Current Outpatient Prescriptions: ??? hydrOXYzine (VISTARIL) 50 MG capsule, Take 1 capsule by mouth 3 (Three) Times a Day As Needed for Itching., Disp: 30 capsule, Rfl: 1 ??? sildenafil (VIAGRA) 100 MG tablet, Take 1 tablet by mouth Daily As Needed for erectile dysfunction., Disp: 10 tablet, Rfl: 1 Procedures UC Course: MDM Diagnoses that have been ruled out: None Diagnoses that are still under consideration: None Final diagnoses: Contusion of left foot, initial encounter Rest, ice, compression, elevation. Ibuprofen and Tylenol for pain. Medications administered for this visit: Medications - No data to display Medication List CONTINUE taking these medications hydrOXYzine 50 MG capsule Commonly known as: VISTARIL Take 1 capsule by mouth 3 (Three) Times a Day As Needed for Itching. sildenafil 100 MG tablet Commonly known as: VIAGRA Take 1 tablet by mouth Daily As Needed for erectile dysfunction. Labs Reviewed - No data to display Imaging Results: XR Foot 3+ View Left (Results Pending) Sneha Martinez APRN 11/29/17 1220 documented in this encounter Plan of Treatment Not on file documented as of this encounter Procedures Procedure Name Priority Date/Time Associated Diagnosis Comments XR FOOT 3+ VW LEFT STAT 11/29/2017 12 :03 PM EDT documented in this encounter Results * XR Foot 3+ View Left (11/29/2017 12:03 PM EDT) Anatomical Region Laterality Modality Lower Extremities, Foot Left [facility] 11/29/2017 12:3 1 PM EDT Impressions 11/29/2017 1:24 PM EDT No acute bony abnormality identified. D: ??11/29/2017 E: ??11/29/2017 This report was finalized on 11/29/2017 1:[address] Gretchen Castillo MD. Narrative 11/29/2017 1:24 PM EDT EXAMINATION: XR FOOT 3+ VW LEFT- 11/29/2017 INDICATION: fell from rock wall into shallow foam pit COMPARISON: NONE FINDINGS: 3 views of the left foot reveal no evidence of fracture or dislocation. The cortex is intact. Joint spaces are preserved. No joint effusions identified. No soft tissue abnormality present. ? Procedure Note Gretchen Castillo MD - 11/29/2017 EXAMINATION: XR FOOT 3+ VW LEFT- 11/29/2017 INDICATION: fell from rock wall into shallow foam pit COMPARISON: NONE FINDINGS: 3 views of the left foot reveal no evidence of fracture or dislocation. The cortex is intact. Joint spaces are preserved. No joint effusions identified. No soft tissue abnormality present. IMPRESSION: No acute bony abnormality identified. E: 11/29/2017 This report was finalized on 11/29/2017 1:[address] Gretchen Castillo MD. Sneha Martinez APRN IMG DIAGNOSTIC IMAGING ORD ERABLES Final Result documented in this encounter Visit Diagnoses Diagnosis Contusion of left foot, initial encounter- Primary documented in this encounter Care Teams Grounds/Maintenance Specialist Relationship Specialty Start Date End Date Allyssa Vogel, YOSELYN [address] [place] [address] PCP - General Family Medicine 08/12/16 documented as of this encounter
--- OUTSIDE RECORDS SUMMARY | 2024-03-04 13:37 | XMS_ITS | Encounter Summary ---
Author Organization [facility] Address [address] [place] [id number] Care Team Providers Care Strategic Communications Manager Name Role Phone Bijan Mancera MD Unavailable [phone] Reason for Referral * Transplant (Routine) - Authorized Specialty Diagnoses / Procedures Referred By Contac t Referred To Contact Transplant Diagnoses End-stage liver disease (CMS/HCC) Bijan Mancera MD [address] [place] [address] Phone: tel: fax: [facility] [address] [address] Phone: tel: fax: Referral ID Status Reason Start Date Expiration Date Visits Requested Visits Authorized [id number] Authorized Specialty Services Required 4 08/24/2025 999 999 Reason for Visit * Reason Comments Referral - Liver Txp Encounter Details Date Type Department Care Team (Late st Contact Info) Description 02/23/2024 Telephone [facility] [address] [address] Connie Fonseca [facility] [address] [place] [address] Referral - Liver Txp Social History Tobacco Use Types Packs/Day Years [...] * Telephone Encounter - Connie Fonseca - 02/23/2024 12:57 PM EST Received a call from Celestina Barr - patient's fiancee - inquiry regarding a new patient referral from Dr Mancera. I noted there is no referral for Transplant services to date. Updated patient information and explained I will need to contact Dr Mancera's office to verify/obtain records and that I will call her back to either redirect or schedule. Called Dr Mancera's office - spoke to Tracey - she is faxing referral. Scheduling pending insurance review. documented in this encounter Plan of Treatment Upcoming Encounters Date Type Department Care Team (Late st Contact Info) Description 03/21/2024 7:45 AM EST Clinical Support [facility] [address] [facility] [address] [place] [address] 03/21/2024 9:20 AM EST Office Visit [facility] [place] [address] [facility] [address] [place] [phone] Jean Greer MD [address] [facility] [address] [place] [address] 03/21/2024 10:00 AM EST Office Visit [facility] [place] [address] [address] Surgeon, Transplant Liver Scheduled Referrals Name Type Priority Associated Diagnoses Order Schedule Ambulatory referral to Solid Organ Transplant Team Outpatient Referral Routine End-stage liver disease (CMS/HCC) Ordered: 02/23/2024 documented as of this encounter Visit Diagnoses Diagnosis End-stage liver disease (CMS/HCC)- Primary Other sequelae of chronic liver disease documented in this encounter Care Teams Strategic Communications Manager Relationship Specialty Start Date End Date Bijan Mancera MD [address] [place] [address] Referring Physician Gastroenterology 02/23/24 documented as of this encounter
--- OUTSIDE RECORDS SUMMARY | 2024-03-04 13:37 | XMS_ITS | Encounter Summary ---
Author Organization [facility] Address [address] [id number] Care Team Providers Care Insulation Packer Name Role Phone Allyssa Vogel PA-C Primary Care Provider [phone]- [phone] Reason for Visit * Reason Comments Headache x1 day. Has taken 80 0mg ibuprofen today with some relief Obesity RF phentermine Encounter Details Date Type Department Care Team (Late st Contact Info) Description 09/06/2020 3:45 PM EDT Office Visit [facility] [address] [facility] [address] [place] [phone] Shantanu Sánchez PA [address] [place] [address] Obesity (BMI 30-39.9) (Primary Dx); Tension headache Social History Tobacco Use Types Packs/Day Years [...] Sign Reading Time Taken Comments Blood Pressure 138/80 09/06/2020 3:53 PM EDT Pulse 88 09/06/2020 3:53 PM EDT Temperature 36.2 ??C (97.1 ??F) 09/06/2020 3:53 PM ED T Respiratory Rate 16 09/06/2020 3:53 PM EDT Oxygen Saturation 98% 09/06/2020 3:53 PM EDT Inhaled Oxygen Concentration - - Weight 133 kg (292 lb 6.4 oz) 09/06/2020 3:53 PM EDT Height 193 cm (6' 3.98 ) 09/06/2020 3:53 PM EDT Body Mass Index 35.61 09/06/2020 3:53 PM EDT documented in this encounter Progress Notes * Shantanu Sánchez PA - 09/06/2020 3:45 PM EDT Subjective Hunter Sharp is a 30 y.o. male Headache (x1 day. Has taken 800mg ibuprofen today with some relief ) and Obesity (RF phentermine) History of Present Illness Patient is a pleasant 30-year-old white male who comes in complaint 1 day headache has been taking some ibuprofen with some relief got headache in the tension type headache and some neck pain neck stiffness patient did some work yesterday and had a headache since that time feels like a band headache, no photophobia no phonophobia no nausea no vomiting. Ibuprofen does help symptoms Patient planes of obesity BMI is 35 patient dates he takes phentermine for weight loss he is been trying low-carb low calorie diet phentermine does help with appetite patient states the medicine doeshelp but he needs to do better with his diet The following portions of the patient's history [...] weakness, light-headedness, numbness and headaches. Objective Vitals: 09/06/20 1553 BP: 138/80 Pulse: 88 Resp: 16 Temp: 97.1 ??F (36.2 ??C) SpO2: 98% Physical Exam Vitals and [...] soft. Tenderness: There is no abdominal tenderness. Musculoskeletal: Cervical back: Neck supple. Bony tenderness present. Decreased range of motion. Lymphadenopathy: Cervical: No cervical adenopathy. Skin: General: Skin is warm and dry. Neurological: Sensory: No sensory deficit. Assessment/Plan Diagnoses and all orders for this visit: 1. Obesity (BMI 30-39.9) (Primary) 2. Tension headache - cyclobenzaprine (FLEXERIL) 10 MG tablet; Take 1 tablet by mouth 3 (Three) Times a Day As Needed for Muscle Spasms. Dispense: 30 tablet; Refill: 1 ?? Prescription sent for phentermine 37.5 mg tablets 1 daily for assistance in weight loss #30 with 2 refills. Discussed importance of on a low calorie, low carb diet increasing water intake and increasing exercise. Discussed ways to increase exercise and improve diet. Discussed need to follow-up in office in 3 months for recheck Flexeril 10 mg one p.o. twice daily as needed headache patient was told to continue take ibuprofen as needed for breakthrough headache follow-up if no better documented in this encounter Plan of Treatment Not on file documented as of this encounter Visit Diagnoses Diagnosis Obesity (BMI 30-39.9)- Primary Tension headache documented in this encounter Care Teams Insulation Packer Relationship Specialty Start Date End Date Allyssa Vogel PA-C [address] [place] [address] PCP - General Family Medicine 08/12/16 documented as of this encounter
--- OUTSIDE RECORDS SUMMARY | 2024-03-04 13:37 | XMS_ITS | Encounter Summary ---
[facility] Address [address] [place] [id number] Care Team Providers Care Out Patient Therapist Name Role Phone Allyssa Vogel PA-C Primary Care Provider [phone]- [phone] Reason for Visit * Reason Comments Obesity RF phentermine Encounter Details Date Type Department Care Team (Late st Contact Info) Description 05/09/2020 10:30 AM EST Office Visit [facility] [address] [facility] [address] [place] [phone] Shantanu Sánchez PA [address] [facility] [address] [id number] Morbidly obese Social History Tobacco Use Types Packs/Day Years [...] Sign Reading Time Taken Comments Blood Pressure 142/90 05/09/2020 10:58 AM EST Pulse 79 05/09/2020 10:58 AM EST Temperature 36.3 ??C (97.3 ??F) 05/09/2020 10:[address] Respiratory Rate 16 05/09/2020 10:58 AM EST Oxygen Saturation 98% 05/09/2020 10:58 AM EST Inhaled Oxygen Concentration - - Weight 134 kg (294 lb 12.8 oz) 05/09/2020 10:58 AM EST Height 193 cm (6' 3.98 ) 05/09/2020 10:58 AM EST Body Mass Index 35.9 05/09/2020 10:58 AM EST documented in this encounter Progress Notes * Shantanu Sánchez PA - 05/09/2020 10:30 AM EST Images from the original note were not included. Subjective Hunter De Guzman is a 29 y.o. male Obesity (RF phentermine) History of Present Illness Patient is a pleasant 29-year-old white male who comes in for follow-up of obesity, BMI is 35.9 patient states his been taking phentermine which is helped him lose weight he has lost weight but has been off of it for a month gained a little bit of weight but like to go back on it he is watching [employer] App exercise low-carb low calorie exercise The following portions of the patient's history [...] weakness, light-headedness, numbness and headaches. Objective Vitals: 05/09/20 1058 BP: 142/90 Pulse: 79 Resp: 16 Temp: 97.3 ??F (36.3 ??C) [...] Tenderness: There is no abdominal tenderness. Musculoskeletal: Feet: Lymphadenopathy: Cervical: No cervical adenopathy. Skin: General: Skin is warm and dry. Neurological: Sensory: No sensory deficit. Assessment/Plan Diagnoses and all orders for this visit: 1. Morbidly obese (CMS/HCC) #1 phentermine 37.5 mg 1 p.o. every day dispense 30x2 refills Time spent with patient 15 minutes discussed treatment plan long-term treatment discussed ways to lose weight and exercise documented in this encounter Plan of Treatment Not on file documented as of this encounter Visit Diagnoses Diagnosis Morbidly obese Morbid obesity documented in this encounter Care Teams Out Patient Therapist Relationship Specialty Start Date End Date Allyssa Vogel PA-C [address] [facility] [address] [place] [address] PCP - General Family Medicine 08/12/16 documented as of this encounter
--- OUTSIDE RECORDS SUMMARY | 2024-03-04 13:37 | XMS_ITS | Clinical Summary ---
Author Organization [facility] Address [address] [phone] Care Team Providers Care Agronomy Location Manager Name Role Phone Bijan Mancera MD Unavailable [phone] Encounters Date Type Department Care Team Description 02/24/2024 Telephone [facility] [address] [phone] Connie Fonseca Appointment (Scheduling) 02/23/2024 Telephone [facility] [address] [phone] Connie Fonseca Referral - Liver Txp from Last 3 Months Immunizations Name Administration Dates Next Due Influenza, seasonal, injectable, preservative fr ee 03/26/2013 Pneumococcal Polysaccharide PPV23 03/26/2013 Social History Tobacco Use Types Packs/Day Years Used Date Smoking Tobacco: Every Day Alcohol Use Standard Drinks/Week Comments Yes 0 (1 standard drink = 0.6 oz pur e alcohol) Sex and Gender Information Value Date Recorded Sex Assigned at Not on file Legal Sex Male 7:42 PM EDT Gender Identity Not on file Sexual Orientation Not on file Last Filed Vital Signs Vital Sign Reading Time Taken Comments Blood Pressure - - Pulse - - Temperature - - Respiratory Rate - - Oxygen Saturation - - Inhaled Oxygen Concentration - - Weight 106 kg (233 lb 0.1 oz) 04/14/2013 10:31 A M EST Height 190.5 cm (6' 3 ) 04/14/2013 10:31 AM EST Body Mass Index 29.12 04/14/2013 10:31 AM EST Plan of Treatment Upcoming Encounters Date Type Department Care Team (Late st Contact Info) Description 03/21/2024 7:45 AM EST Clinical Support [facility] [address] [place] [phone] 03/21/2024 9:20 AM EST Office Visit [facility] [address] [place] [phone] Jean Greer MD [address] [place] [phone] 03/21/2024 10:00 AM EST Office Visit [facility] [address] [place] [phone] Surgeon, Transplant Liver Health Maintenance Due Date Last Done Comments Dental Oral Exam 1988 Dental Prophylaxis 1988 Dental X-Ray: Bitewings 1988 Dental X-Ray: Full Mouth 1988 [facility]-Depression Screening 1988 [facility]-HIV Screening 1988 [facility]-Hepatitis C Screening 1988 [facility]-Infant/Child/Adol SDOH Screenings 1988 [facility]-Varicella Vaccines (1 of 2 - 13+ 2-dose series) 2001 [facility]- SDOH Screenings 2006 [facility]-Adult SDOH Screenings 2006 [facility]-DTaP,Tdap,and Td Vaccine s (1 - Tdap) 08/10/2007 [facility]-Hepatitis A Vaccines (1 of 2 - Risk 2-dose series) 08/10/2007 [facility]-Hepatitis B Vaccines (1 of 3 - 19+ 3-dose series) 08/10/2007 [id number] Vaccine (1 - 20 24-25 season) 2023 [facility]-Influenza Vaccine (#1) 2023 03/26/2013 [facility]-Zoster Vaccines (1 of 2) 2038 [facility]-RSV Vaccine: 60+ Years o r (1 - 1-dose 75+ series) 08/10/2063 [facility]-Pneumococcal Vaccine: Pediatrics (0 to 5 Years) and At-Risk Patients (6 to 64 Years) Aged Out 03/26/2013 No long er eligible based on patient's age to complete this topic [facility]-HIB Vaccines Aged Out No longer e ligible based on patient's age to complete this topic [facility]-HPV Vaccines Aged Out No longer e ligible based on patient's age to complete this topic [facility]-IPV Vaccines Aged Out No longer e ligible based on patient's age to complete this topic [facility]-Rotavirus Vaccines Aged Out No lo nger eligible based on patient's age to complete this topic Procedures Procedure Name Priority Date/Time Associated Diagnosis Comments ALBUMIN, PLASMA Routine 01/19/2024 TOTAL BILIRUBIN, PLASMA Routine 01/19/2024 CREATININE, PLASMA Routine 01/19/2024 SODIUM, PLASMA Routine 01/19/2024 PROTHROMBIN TIME(PT) / INR Routine 01/19/2024 from Last 3 Months Results * Creatinine, Plasma (01/19/2024) External Creatinine Blood 0.8 mg/dL Blood Venous blood specimen / Unknown 01/19/2024 Result [facility] Historical Provider LAB BLOOD ORDERABLES Angella l Result * Prothrombin Time/INR (01/19/2024) External Prothrombin Time (PT) 11.1 External INR - Internormal Ratio 1.1 Blood Venous blood specimen / Unknown 01/19/2024 Historical Provider LAB BLOOD ORDERABLES Angella l Result * Sodium, Plasma (01/19/2024) External Sodium 136 mmol/L Blood Venous blood specimen / Unknown 01/19/2024 Historical Provider LAB BLOOD ORDERABLES Angella l Result * Total Bilirubin, Plasma (01/19/2024) External Bilirubin Total 0.7 mg/dL Blood Venous blood specimen / Unknown 01/19/2024 [facility] Provider LAB BLOOD ORDERABLES Angella l Result * Albumin, Plasma (01/19/2024) External Albumin 3.8 g/dL Blood Venous blood specimen / Unknown 01/19/2024 Historical Provider LAB BLOOD ORDERABLES Angella l Result from Last 3 Months Insurance [employer] MED[employer] [place] [facility] [employer] [facility] MEDICAID [address] [id number] [facility] [employer] [facility] MEDICAID Care Teams Agronomy Location Manager Relationship Specialty Start Date End Date Bijan Mancera MD [facility] [place] [address] Referring Physician Gastroenterology 02/23/24
--- OUTSIDE RECORDS SUMMARY | 2024-03-04 13:37 | XMS_ITS | Encounter Summary ---
Author Organization [facility] Address [address] [place] [address] Care Team Providers Care Pattern Vault Clerk Name Role Phone Allyssa Vogel PA-C Primary Care Provider [phone]- [phone] Reason for Visit * Reason Comments Weight Gain Has been exercising/ walking but not losing weight-prev on phentermine which worked well Encounter Details Date Type Department Care Team (Late st Contact Info) Description 01/17/2019 9:45 AM EDT Office Visit [facility] [address] [phone] Shantanu Sánchez PA [address] [place] [address] Weight gain (Primary Dx) Social History Tobacco Use Types [...] Sign Reading Time Taken Comments Blood Pressure 136/90 01/17/2019 9:42 AM EDT Pulse 76 01/17/2019 9:42 AM EDT Temperature - - Respiratory Rate 16 01/17/2019 9:42 AM EDT Oxygen Saturation 99% 01/17/2019 9:42 AM EDT Inhaled Oxygen Concentration - - Weight 131 kg (289 lb 12.8 oz) 01/17/2019 9:42 A M EDT Height 193 cm (6' 4 ) 01/17/2019 9:42 AM EDT Body Mass Index 35.28 01/17/2019 9:42 AM EDT documented in this encounter Progress Notes * Shantanu Sánchez PA - 01/17/2019 9:45 AM EDT Subjective Hunter De Guzman is a 28 y.o. male Weight Gain (Has been exercising/walking but not losing weight-prev on phentermine which worked well) History of Present Illness Patient is 36-year-old white male who comes in claims weight gain gained over 30 pounds last 6 months patient has trouble with losing weight is been trying exercise and relief no SI/HI. Patient complains of diet not been able to follow diet. No shortness breath no chest pain meds working well no problems or complaints The following portions of the patient's history [...] weakness, light-headedness, numbness and headaches. Objective Vitals: 01/17/19 0942 BP: 136/90 Pulse: 76 Resp: 16 SpO2: 99% Physical Exam Constitutional: He appears [...] Diagnoses and all orders for this visit: Weight gain Trial of phentermine 37.5 mg 1 p.o. every day dispense 30??3 refills Time is spent with patient 10:00 10:15 AM, 9 minutes at time we discussed treatment plan long-term treatment discussed low-carb low calorie diet exercise 3-5 times per week documented in this encounter Plan of Treatment Not on file documented as of this encounter Visit Diagnoses Diagnosis Weight gain- Primary Other symptoms concerning nutrition, metabolism, and development documented in this encounter Care Teams Pattern Vault Clerk Relationship Specialty Start Date End Date Allyssa Vogel, PADanielleC [address] [place] [address] PCP - General Family Medicine 08/12/16 documented as of this encounter
--- OUTSIDE RECORDS SUMMARY | 2024-03-04 13:37 | XMS_ITS | Encounter Summary ---
[facility] Address [address] [place] [phone] Care Team Providers Care Shade Hanger Name Role Phone Allyssa Vogel PA-C Primary Care Provider [phone]- [phone] Reason for Visit * Reason Comments Med Refill Encounter Details Date Type Department Care Team (Late st Contact Info) Description 04/02/2020 Refill [facility] 1760 [facility] [address] [place] [address] Nathaniel Coats MD [address]60 [facility] [address] [place] [address] Social History Tobacco Use Types [...] encounter Miscellaneous Notes * Telephone Encounter - Juliette Gill MA - 04/03/2020 8:00 AM EST ADDIE 01/08 documented in this encounter Plan of Treatment Not on file documented as of this encounter Visit Diagnoses Not on filedocumented in this encounter Care Teams Shade Hanger Relationship Specialty Start Date End Date Allyssa Vogel PA-C [address] [facility] [address] [place] [address] PCP - General Family Medicine 08/12/16 documented as of this encounter
--- OUTSIDE RECORDS SUMMARY | 2024-03-04 13:37 | XMS_ITS | Encounter Summary ---
Author Organization [facility] Address [address] [id number] Care Team Providers Care Senior Pastor Name Role Phone Allyssa Vogel PA-C Primary Care Provider +1- [phone] Reason for Visit * Reason Onset Date Comments Med Refill 05/09/2020 Encounter Details Date Type Department Care Team (Late st Contact Info) Description 05/09/2020 Refill [facility] [address]60 [facility] [address] [place] [phone] Shantanu Sánchez PA [address] [phone] [place] [address] Obesity (BMI 30-39.9) (Primary Dx) Social [...] Telephone Encounter - Nell Parra MA - 05/09/2020 4:02 PM EST Office visit with Marcellus documented in this encounter Plan of Treatment Not on file documented as of this encounter Visit Diagnoses Diagnosis Obesity (BMI 30-39.9)- Primary documented in this encounter Care Teams Senior Pastor Relationship Specialty Start Date End Date Allyssa Vogel PA-C [address] [facility] [place] [address] PCP - General Family Medicine 08/12/16 documented as of this encounter
--- OUTSIDE RECORDS SUMMARY | 2024-03-04 13:37 | XMS_ITS | Encounter Summary ---
Author Organization [facility] Address [address] [place] [address] Care Team Providers Care Tow Motor Driver Name Role Phone Allyssa Vogel PA-C Primary Care Provider +1- [phone] Reason for Visit * Reason Comments Obesity Has been off phenter mine for several months Fatigue Encounter Details Date Type Department Care Team (Late st Contact Info) Description 01/12/2022 3:15 PM EDT Office Visit [facility] 1760 [facility] [address] [place] [phone] Shantanu Sánchez PA [address] [facility] [address] [place], [place] [phone] Chronic fatigue (Primary Dx); Cigarette nicotine dependence without complication Social History Tobacco Use Types Packs/Day Years Used Date Smoking Tobacco: Every Day Cigarettes Smokeless Tobacco: Never Alcohol Use Standard Drinks/Week Comments Yes 0 (1 standard drink = 0.6 oz pur e alcohol) PHQ-2 Answer Date Recorded Retired PHQ-9: Brief Depression Severity Measure Score 0 01/12/2022 Sex and Gender Information Value Date Recorded Sex Assigned at Not on file Legal Sex Male 10:15 AM EST Gender Identity Not on file Sexual Orientation Not on file documented as of this encounter Last Filed Vital Signs Vital Sign Reading Time Taken Comments Blood Pressure 130/74 01/12/2022 3:05 PM EDT Pulse 83 01/12/2022 3:05 PM EDT Temperature 36.2 ??C (97.1 ??F) 01/12/2022 3:05 PM ED T Respiratory Rate 16 01/12/2022 3:05 PM EDT Oxygen Saturation 98% 01/12/2022 3:05 PM EDT Inhaled Oxygen Concentration - - Weight 138 kg (305 lb 3.2 oz) 01/12/2022 3:05 PM EDT Height 190.5 cm (6' 3 ) 01/12/2022 3:05 PM EDT Body Mass Index 38.15 01/12/2022 3:05 PM EDT documented in this encounter Progress Notes * Shantanu Sánchez PA - 01/12/2022 3:15 PM EDT Subjective Hunter De Guzman is a 31 y.o. male Obesity (Has been off phentermine for several months ) and Fatigue History of Present Illness Patient is a pleasant 31-year-old white male who comes in for weight gain fatigue no energy concentration issues patient also has history of nicotine dependence smokes over a pack a day for 10 years chronic fatigue no energy no shortness breath no chest pain. Patient has tried phentermine in the past took for 3 months lost about 10 pounds without maintaining weight loss. The following portions of the patient's history [...] weakness, light-headedness, numbness and headaches. Objective Vitals: 01/12/22 1505 BP: 130/74 Pulse: 83 Resp: 16 Temp: 97.1 ??F (36.2 ??C) SpO2: 98% Physical Exam Vitals and nursing note reviewed. Constitutional: General: He is not in acute distress. Appearance: Normal appearance. He is well-developed. He is not ill-appearing, toxic-appearing or diaphoretic. Neck: Vascular: No carotid bruit or JVD. Cardiovascular: Rate and Rhythm: Normal rate and regular rhythm. Pulses: Normal pulses. Heart sounds: Normal heart sounds. No murmur heard. Pulmonary: Effort: Pulmonary effort is normal. No respiratory distress. Breath sounds: Normal breath sounds. Abdominal: Palpations: Abdomen is soft. Tenderness: There is no abdominal tenderness. Skin: General: Skin is warm and dry. Neurological: Mental Status: He is alert. Assessment & Plan Diagnoses and all orders for this visit: 1. Chronic fatigue (Primary) - buPROPion XL (Wellbutrin XL) 150 MG 24 hr tablet; Take 1 tablet by mouth Daily. Dispense: 30 tablet; Refill: 6 2. Cigarette nicotine dependence without complication - buPROPion XL (Wellbutrin XL) 150 MG 24 hr tablet; Take 1 tablet by mouth Daily. Dispense: 30 tablet; Refill: 6 Follow-up in 6 weeks I spent 15 minutes in patient care: Reviewing records prior to the visit, examining the patient, entering orders and documentation Part of this note may be an electronic loss prevention operations manager/translation of spoken language to printed textusing the Medical Compression Systemsation System. documented in this encounter Plan of Treatment Not on file documented as of this encounter Visit Diagnoses Diagnosis Chronic fatigue- Primary Other malaise and fatigue Cigarette nicotine dependence without complication documented in this encounter Care Teams Tow Motor Driver Relationship Specialty Start Date End Date Allyssa Vogel PA-C [address] [facility] [address] [place] [address] PCP - General Family Medicine 08/12/16 documented as of this encounter
--- OUTSIDE RECORDS SUMMARY | 2024-03-04 13:37 | XMS_ITS | Encounter Summary ---
Author Organization [facility] Address [address] [place] [address] Care Team Providers Care Warehouse Supervisor 3Rd Shift Name Role Phone Allyssa Vogel PA-C Primary Care Provider +1- [phone] Reason for Visit * Reason Comments Med Refill Encounter Details Date Type Department Care Team (Late st Contact Info) Description 10/02/2019 2:45 PM EDT Telemedicine [facility] [address] [place] [address] [place] [phone] Allyssa Vogel PA-C [address] [address] Class 2 obesity with body mass [...] Progress Notes * Allyssa Vogel PA-C - 10/02/2019 2:45 PM EDT Subjective Hunter De Guzman is a 29 y.o. male Med Refill History of Present Illness Patient is a pleasant 29-year-old white male who presents today via video visit after giving consent for this to be his office visit. He is following up on weight loss management. Fortunately over the last couple months he has run into a couple of obstacles to his weight loss, he ran out of his phentermine, has been having to eat a lot of food on the road at fast food restaurants and has been less active. He got his weight down to a weight of 265 around May it is back up to 285. He is donewell on phentermine in the past. Denies any respectively takes his medication and finds it very helpful in reducing his appetite. He was only 15 minutes The following portions of the patient's history were reviewed and updated as appropriate: allergies, current medications, past social history and problem list Review of Systems Constitutional: Positive for activity change, appetite change and unexpected weight change. Cardiovascular: Negative for chest pain. Gastrointestinal: Negative for abdominal distention, abdominal pain, diarrhea and nausea. Psychiatric/Behavioral: Negative for dysphoric mood. The patient is not nervous/anxious. Objective There were no vitals filed for this visit. Physical Exam Constitutional: He is oriented to person, place, and time. He appears well- developed and well-nourished. No distress. Obesity noted Pulmonary/Chest: Effort normal. No respiratory distress. Neurological: He is alert and oriented to person, place, and time. Skin: He is not diaphoretic. Psychiatric: He has a normal mood and affect. His behavior is normal. Judgment and thought content normal. Assessment/Plan Hunter was seen today for med refill. Diagnoses and all orders for this visit: Class 2 obesity with body mass index (BMI) of 35.0 to 35.9 in adult, unspecified obesity type, unspecified whether serious comorbidity present Prescription sent for phentermine 37.5 mg tablets 1 daily for assistance in weight loss #30 with 2 refills. Discussed importance of on a low calorie, low carb diet increasing water intake and increasing exercise. Discussed need to follow-up in office in 3 months for recheck. documented in this encounter Plan of Treatment Not on file documented as of this encounter Visit Diagnoses Diagnosis Class 2 obesity with body mass index (BMI) of 35.0 to 35.9 in adult, unspecified obesity type, unspecified whether serious comorbidity present- Primary documented in this encounter Care Teams Warehouse Supervisor 3Rd Shift Relationship Specialty Start Date End Date Allyssa Vogel, YOSELYN [address] [place] [address] PCP - General Family Medicine 08/12/16 documented as of this encounter
--- OUTSIDE RECORDS SUMMARY | 2024-03-04 13:37 | XMS_ITS | Encounter Summary ---
Author Organization [facility] Address [address] [place] [address] Care Team Providers Care Resource Management Specialist Name Role Phone Allyssa Vogel PA-C Primary Care Provider +1- [phone] Reason for Visit * Reason Comments Earache Pt states he has lef t ear pain. Pt states it feels like someone shoved a cotton ball in his ear. States he did purchase something from the store to help, pt states a whole lot of ear waxed did come out but pt states ear still feels muffled. Pt states has concerns if ear ache is related to an injury 12 years ago. Lower Extremity Issue Encounter Details Date Type Department Care Team (Late st Contact Info) Description 01/19/2023 11:16 AM EDT - 01/19/2023 1:04 PM EDT Hospital Encounter [facility] [address] [facility] [address] [phone] Lizabeth Toledo, [facility] ARCHITECT [address] [place] [address] Bilateral hearing loss due to cerumen impaction (Primary Dx) Discharge Disposition: Home or Self Care Social History Tobacco Use Types Packs/Day Years Used Date Smoking Tobacco: Every Day Cigarettes Smokeless Tobacco: Never Tobacco Cessation:Ready to Q uit: Not Asked; Counseling Given: Not Answered Alcohol Use Standard Drinks/Week Comments Yes 0 [...] file Preferred Language Not on file 01/19/2023 Sex and Gender Information Value Date Recorded Sex Assigned at Not on file Legal Sex Male 10:15 AM EST Gender Identity Not on file Sexual Orientation Not on file documented as of this encounter Last Filed Vital Signs Vital Sign Reading Time Taken Comments Blood Pressure 160/82 01/19/2023 11:33 AM EDT Pulse 103 01/19/2023 11:25 AM EDT Temperature 36.7 ??C (98.1 ??F) 01/19/2023 11:25 AM E DT Respiratory Rate 22 01/19/2023 11:25 AM EDT Oxygen Saturation 96% 01/19/2023 11:25 AM EDT Inhaled Oxygen Concentration - - Weight 138 kg (304 lb 3.8 oz) 01/19/2023 11:25 A M EDT Height 190.5 cm (6' 3 ) 01/19/2023 11:25 AM EDT Body Mass Index 38.03 01/19/2023 11:25 AM EDT documented in this encounter Discharge Instructions * Discharge Instructions* Lizabeth Toledo APRN - 01/19/2023 1:02 PM EDT -- Noted 8-10 eight ounce glasses of fluid a day. Nonalcoholic and noncafeinated beverages -Utilize ceruminolytic's as prescribed and follow-up with PCP, [facility] or ENT for further work-up. ----Pt notified to recheck BP in 1-2 days and f/u with PCP if continues to remain high (over 135/85). documented in this encounter Medications at Time of Discharge phentermine (ADIPEX-P) 37.5 MG tablet Take 1 tablet by mouth Every Morning Before Breakfast. buPROPion XL (Wellbutrin XL) 150 MG 24 hr tabletIndications: Chronic fatigue,Cigarette nicotine dependence without complication Take 1 tablet by mouth Daily. 30 tablet 6 01/12/2022 4 documented as of this encounter ED Notes * Lizabeth Toledo APRN - 01/19/2023 11:35 AM EDTAssociated Order(s): Ear Cerumen Removal Post-Procedure Diagnose(s): Bilateral hearing loss due to cerumen impaction Hunter De Guzman is a 32 y.o. male with Chief Complaint Patient presents with Earache Pt states he has left ear pain. Pt states it feels like someone shoved a cotton ball in his ear. States he did purchase something from the store to help, pt states a whole lot of ear waxed did come out but pt states ear still feels muffled. Pt states has concerns if ear ache is related to an years ago. Lower Extremity Issue BP 160/82 (BP Location: Right arm, Patient Position: Sitting) Pulse 103 Temp 98.1 ??F (36.7 ??C) (Oral) Resp 22 Ht 190.5 cm (75 ) Wt (!) 138 kg (304 lb 3.8 oz) SpO2 96% BMI 38.03 kg/m?? Pt states he has left ear pain. Pt states it feels like someone shoved a cotton ball in his ear. States he did purchase something ceruminolytics from the store to help, pt states a whole lot of ear waxed did come out but pt states ear still feels muffled. Pt states has concerns if ear ache is related to an injury 12 years ago. History provided by: Patient Earache Location: Left Behind ear: No abnormality Quality: Aching Severity: Moderate Onset quality: Sudden Duration: 1 day Timing: Constant Progression: Worsening Chronicity: New Context: not direct blow, not elevation change, not foreign body in ear, not loud noise, not recentURI and not water in ear Relieved by: Nothing Worsened by: Nothing Ineffective treatments: None tried Associated symptoms: no abdominal pain, no congestion, no cough, no diarrhea, no ear discharge, no fever, no headaches, no hearing loss, no neck pain, no rash, no rhinorrhea, no sore throat, no tinnitus and no vomiting Risk factors: no recent travel, no chronic ear infection and no prior ear surgery No Known Allergies Past 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: Diagnosis Date COVID-19 Hypertension No LMP for male patient. History reviewed. No pertinent surgical history. Social History Socioeconomic History Marital status: Single Tobacco Use Smoking status: Every Day Packs/day: 1 Types: Cigarettes Smokeless tobacco: Never Vaping Use Vaping Use: Every day Substances: Nicotine Devices: Disposable Substance and Sexual Activity Alcohol use: Yes Drug use: No Sexual activity: Yes Partners: Female Review of Systems Constitutional: Negative for activity change, chills, diaphoresis, fatigue and fever. HENT: Positive for ear pain and hearing loss. Negative for congestion, ear discharge, postnasal drip, rhinorrhea, sinus pressure, sinus pain, sneezing, sore throat, tinnitus and voice change. Eyes: Negative for pain, discharge and redness. Respiratory: Negative for cough, chest tightness and shortness of breath. Cardiovascular: Negative for chest pain. Gastrointestinal: Negative for abdominal pain, diarrhea, nausea and vomiting. Musculoskeletal: Negative for arthralgias, myalgias and neck pain. Skin: Negative for color change and rash. Allergic/Immunologic: Negative for environmental allergies. Neurological: Negative for dizziness, light-headedness and headaches. Psychiatric/Behavioral: Negative for agitation. Physical Exam Constitutional: Appearance: He is well-developed. He is not ill-appearing. HENT: Head: Normocephalic and atraumatic. Right Ear: External ear normal. No decreased hearing noted. No tenderness. There is impacted cerumen. Left Ear: External ear normal. Decreased hearing noted. Tenderness present. There is impacted cerumen. Nose: Nose normal. Right Sinus: No maxillary sinus tenderness or frontal sinus tenderness. Left Sinus: No maxillary sinus tenderness or frontal sinus tenderness. Eyes: General: Lids are normal. Conjunctiva/sclera: Conjunctivae normal. Cardiovascular: Heart sounds: Normal heart sounds. Pulmonary: Effort: Pulmonary effort is normal. Breath sounds: Normal breath sounds. Abdominal: Tenderness: There is no abdominal tenderness. Skin: General: Skin is warm and dry. Findings: No rash. Neurological: Mental Status: He is alert and oriented to person, place, and time. Psychiatric: Speech: Speech normal. Behavior: Behavior normal. Behavior is cooperative. No orders to display Labs Reviewed - No data to display Problems Addressed this Visit None Diagnoses None. Ear Cerumen Removal Date/Time: 01/19/2023 12:47 PM Performed by: Lizabeth Toledo APRN Authorized by: Lizabeth Toledo APRN Consent: Consent obtained: Verbal Consent given by: Patient Risks, benefits, and alternatives were discussed: yes Risks discussed: Bleeding, incomplete removal, infection, pain, TM perforation and dizziness Alternatives discussed: Referral [place] protocol: Procedure explained and questions answered to patient or proxy's satisfaction: yes Relevant documents present and verified: yes Test results available: yes Imaging studies available: yes Required blood products, implants, devices, and special equipment available: yes Site/side marked: yes Immediately prior to procedure, a time out was called: yes Patient identity confirmed: Verbally with patient Procedure details: Location: L ear and R ear Procedure type: irrigation Procedure outcomes: unable to remove cerumen Post-procedure details: Inspection: Some cerumen remaining Hearing quality: Improved Procedure completion: Tolerated Comments: Unable to fully remove left ear cerumen. Small amount left on eardrum. Right ear cerumen impaction removed. Patient to use [id number] ceruminolytic's and follow-up with ENT or return in 1 week to reattempt. Occasion done not to place anything in his left ear besides ceruminolytic drops as prescribed. Medications - No data to display Medication List ASK your doctor about these medications buPROPion XL 150 MG 24 hr tablet Commonly known as: Wellbutrin XL Take 1 tablet by mouth Daily. phentermine 37.5 MG tablet Commonly known as: ADIPEX-P Hunter De Guzman reports that he has been smoking cigarettes. He has been smoking an average of 1 pack per day. He has never used smokeless tobacco. Current tobacco users are offered counseling on tobacco cessation and encouraged to discuss optionswith their primary care provider. Unable to fully remove left ear cerumen. Most of left ear cerumen removed but small amount left on L eardrum. Right ear cerumen impaction removed. Patient tolerated procedure well. ` Patient to use [id number] ceruminolytic's and follow-up with ENT or return in 1 week to reattempt. Education done not to place anything in his left ear besides ceruminolytic drops as prescribed. Education done and questions answered Please follow up with your PMD in 2-3 days as needed or return to urgent care if needed sooner. If you feel you need immediate care - go to your closest emergency room. Please note that portions of this note may have been completed with a voice recognition program. Efforts were made to edit the dictations, but occasionally words are mistranscribed. Lizabeth Toledo APRN 01/19/23 1310 documented in this encounter Plan of Treatment Not on file documented as of this encounter Procedures Procedure Name Priority Date/Time Associated Diagnosis Comments TX REMOVAL IMPACTED CERUMEN IRRIGATION/LVG UNILAT Routine 01/19/2023 12:47 PM EDT Bilateral hearing loss due to cerumen impaction documented in this encounter Results * TX REMOVAL IMPACTED CERUMEN IRRIGATION/LVG UNILAT (01/19/2023 12:47 PM EDT) Narrative Lizabeth Toledo APRN - 01/19/2023 12:47 PM EDT Lizabeth Toledo APRN ? 01/19/2023 ??1:10 PM Ear Cerumen Removal Date/Time: 01/19/2023 12:47 PM Performed by: Lizabeth Toledo APRN Authorized by: Lizabeth Toledo APRN ?? Consent: ??Consent obtained: ??Verbal ??Consent given by: ??Patient ??Risks, benefits, and alternatives were discussed: yes ?Risks discussed: ??Bleeding, incomplete removal, infection, pain, TM perforation and dizziness ??Alternatives discussed: ??Referral [place] protocol: ??Procedure explained and questions answered to patient or proxy's satisfaction: yes ?Relevant documents present and verified: yes ?Test results available: yes ?Imaging studies available: yes ?Required blood products, implants, devices, and special equipment available: yes ?Site/side marked: yes ?Immediately prior to procedure, a time out was called: yes ?Patient identity confirmed: ??Verbally with patient Procedure details: ??Location: ??L ear and R ear ??Procedure type: irrigation ?Procedure outcomes: unable to remove cerumen ?? Post-procedure details: ??Inspection: ??Some cerumen remaining ??Hearing quality: ??Improved ??Procedure completion: ??Tolerated Comments: ?? Unable to fully remove left ear cerumen. ??Small amount left on eardrum. Right ear cerumen impaction removed. ??Patient to use [id number] ceruminolytic's and follow-up with ENT or return in 1 week to reattempt. ?? Occasion done not to place anything in his left ear besides ceruminolytic drops as prescribed. Lizabeth Toledo APRN PROCEDURE/MINOR SURGICAL O RDERABLES Final Result documented in this encounter Visit Diagnoses Diagnosis Bilateral hearing loss due to cerumen impaction- Primary documented in this encounter Care Teams Resource Management Specialist Relationship Specialty Start Date End Date Allyssa Vogel PA-C [address] [facility] [address] [place] [address] PCP - General Family Medicine 08/12/16 documented as of this encounter
--- OUTSIDE RECORDS SUMMARY | 2024-03-04 13:37 | XMS_ITS | Encounter Summary ---
Author Organization [facility] Address [address] [place] [address] Care Team Providers Care Gymnastic Teacher Name Role Phone Allyssa Vogel PA-C Primary Care Provider +1- [phone] Encounter Details Date Type Department Care Team (Late st Contact Info) Description 09/01/2023 3:10 PM EDT Lab [facility] [address] [place] [phone] Chronic fatigue; Low libido Social History Tobacco Use Types Packs/Day Years [...] Procedure Name Priority Date/Time Associated Diagnosis Comments TESTOSTERONE (FREE AND TOTAL), LC/MS Routine 09/01/2023 2:44 PM EDT Chronic fatigue Low libido CBC (NO DIFF) Routine 09/01/2023 2:44 PM EDT Chronic fatigue TSH Routine 09/01/2023 2:44 PM EDT Chronic fatigue COMPREHENSIVE METABOLIC PANEL Routine 09/01/2023 2:44 PM EDT Chronic fatigue documented in this encounter Results * (ABNORMAL) Comprehensive metabolic panel (09/01/2023 2:44 PM EDT) Glucose 113(H) 65 - 99 mg/dL 09/01/2023 6:57 PM EDT [facility] BUN 8 6 - 20 mg/dL 09/01/2023 6:57 PM EDT [facility] Creatinine 0.71(L) 0.76 - 1.27 mg/dL 09/01/2023 6:57 PM EDT [facility] Sodium 140 136 - 145 mmol/L 09/01/2023 6:57 PM EDT [facility] Potassium 3.8 3.5 - 5.2 mmol/L 09/01/2023 6:57 PM EDT [facility] Chloride 105 98 - 107 mmol/L 09/01/2023 6:57 PM EDT [facility] CO2 25.0 22.0 - 29.0 mmol/L 09/01/2023 6:57 PM T [facility] Calcium 8.6 8.6 - 10.5 mg/dL 09/01/2023 6:57 PM [facility] Total Protein 7.3 6.0 - 8.5 g/dL 09/01/2023 6:57 PM T [facility] Albumin 3.8 3.5 - 5.2 g/dL 09/01/2023 6:57 PM [facility] ALT (SGPT) 145(H) 1 - 41 U/L 09/01/2023 6:57 PM [facility] AST (SGOT) 237(H) 1 - 40 U/L 09/01/2023 6:57 PM [facility] Alkaline Phosphatase 150(H) 39 - 117 U/L 09/01/2023 6:57 PM [facility] Total Bilirubin 1.0 0.0 - 1.2 mg/dL 09/01/2023 6:57 PM [facility] Globulin 3.5 gm/dL 09/01/2023 6:57 PM [facility] A/G Ratio 1.1 g/dL 09/01/2023 6:57 PM [facility] BUN/Creatinine Ratio 11.3 7.0 - 25.0 09/01/2023 6:57 PM [facility] Anion Gap 10.0 5.0 - 15.0 mmol/L 09/01/2023 6:57 PM [facility] eGFR 122.7 >60.0 mL/min/1.7 3 09/01/2023 6:57 PM [facility] Blood Venipuncture / Unknown 09/01/2023 2:44 PM EDT 09/01/2023 2:44 PM EDT [facility] - 09/01/2023 6:57 PM EDT GFR Normal >60 Chronic Kidney Disease <60 Kidney Failure <15 Allyssa Vogel PA-C LAB BLOOD ORDERABLES Final Result [facility]
[address] [place] [address], [place] [phone] * (ABNORMAL) Testosterone (Free & Total), LC / MS (09/01/2023 2:44 PM EDT) Testosterone, Total 23.3(L) 264.0 - 916.0 ng/dL 09/09/2023 12:07 AM EDT [facility] Comment: [facility] method is currently certified by the CDC Hormone Standardization Program (HoSt). Adult male reference interval is based on a population of healthy nonobese males (BMI <30) between 19 and 39 years old. Buddy et.al. JCEM 2017,102;5681-6464. PMID: [id number]. Verified by repeat analysis Testosterone, Free 0.3(L) 8.7 - 25.1 pg/mL 09/09/2023 12:07 AM EDT [facility] Blood Venipuncture / Unknown 09/01/2023 2:44 PM EDT 09/01/2023 2:44 PM EDT Narrative [facility] - 09/09/2023 12:07 AM EDT Test(s) [id number], Total, LC/MS was developed and its performance characteristics determined by [facility]. It has not been cleared or approved by the Food and Drug Administration. Performed at: ??01 - [address] ??[id number] [employer]: Starla Gill MD, Phone: ??[phone] Allyssa Vogel PA-C LAB BLOOD ORDERABLES Final Result [facility] [address] [place] [address], [place] [phone] * (ABNORMAL) CBC (No Diff) (09/01/2023 2:44 PM EDT) Pathologist [facility] [place] WBC 4.56 3.40 - 10.80 10*3/mm3 09/01/2023 6:45 PM EDT [facility] RBC 5.14 4.14 - 5.80 10*6/mm3 09/01/2023 6:45 PM EDT [facility] Hemoglobin 14.9 13.0 - 17.7 g/dL 09/01/2023 6:45 PM EDT [facility] Hematocrit 44.5 37.5 - 51.0 % 09/01/2023 6:45 PM EDT [facility] MCV 86.6 79.0 - 97.0 fL 09/01/2023 6:45 PM EDT [facility] MCH 29.0 26.6 - 33.0 pg 09/01/2023 6:45 PM EDT [facility] MCHC 33.5 31.5 - 35.7 g/dL 09/01/2023 6:45 PM EDT [facility] RDW 13.6 12.3 - 15.4 % 09/01/2023 6:45 PM EDT [facility] RDW-SD 43.0 37.0 - 54.0 fl 09/01/2023 6:45 PM EDT [facility] MPV 11.6 6.0 - 12.0 fL 09/01/2023 6:45 PM EDT [facility] Platelets 65(L) 140 - 450 10*3/mm3 09/01/2023 6:45 PM EDT [facility] Blood Venipuncture / Unknown 09/01/2023 2:44 PM EDT 09/01/2023 2:44 PM EDT us Allyssa Vogel PA-C LAB BLOOD ORDERABLES Final Result [facility]
[address] [place] [address], * TSH (09/01/2023 2:44 PM EDT) TSH 0.920 0.270 - 4.200 uIU/mL 09/01/2023 7:07 PM EDT [facility] Blood Venipuncture / Unknown 09/01/2023 2:44 PM EDT 09/01/2023 2:44 PM EDT us Allyssa Vogel PA-C LAB BLOOD ORDERABLES Final Result [facility]
[address] [place] [address], documented in this encounter Visit Diagnoses Diagnosis Chronic fatigue Other malaise and fatigue Low libido documented in this encounter Care Teams Gymnastic Teacher Relationship Specialty Start Date End Date Allyssa Vogel PA-C [address] [facility] [address] [place] [address] PCP - General Family Medicine 08/12/16 documented as of this encounter
--- OUTSIDE RECORDS SUMMARY | 2024-03-04 13:37 | XMS_ITS | Encounter Summary ---
Author Organization [facility] Address [address] [id number] Care Team Providers Care Florist Manager Name Role Phone Allyssa Vogel PA-C Primary Care Provider +1- [phone] Reason for Visit * Reason Onset Date Comments Med Refill 01/07/2021 Encounter Details Date Type Department Care Team (Late st Contact Info) Description 01/07/2021 Refill [facility] [address] [facility] [address] [place] [phone] Shantanu Sánchez PA [id number] [place] [address] Obesity (BMI 30-39.9) Social History Tobacco Use [...] Telephone Encounter - Nell Parra MA - 01/07/2021 1:54 PM EDT O/V with Marcellus documented in this encounter Plan of Treatment Not on file documented as of this encounter Visit Diagnoses Diagnosis Obesity (BMI 30-39.9) documented in this encounter Care Teams Florist Manager Relationship Specialty Start Date End Date Allyssa Vogel PA-C [address] [place] [address] PCP - General Family Medicine 08/12/16 documented as of this encounter
--- OUTSIDE RECORDS SUMMARY | 2024-03-04 13:37 | XMS_ITS | Encounter Summary ---
Author Organization [facility] Address [address] [place] [address] Care Team Providers Care Hydraulic Modeling Engineer Name Role Phone Good Tapia PA-C Primary Care Provider +1- [phone] Reason for Visit * Reason Comments Establish Care Encounter Details Date Type Department Care Team (Late st Contact Info) Description 08/12/2016 9:00 AM EDT Office Visit [facility] [address] [facility] [address] [place] [phone] Good Tapia PA-C [address] [address] General medical exam (Primary Dx); Insomnia, unspecified type; Chest pain, unspecified; Tobacco abuse counseling; Impotence; Anxiety Social History Tobacco Use Types Packs/Day Years Used Date Smoking Tobacco: Every Day Smokeless Tobacco: Never Tobacco Cessation:Ready to Q uit: Yes; Counseling Given: Yes Alcohol Use Standard Drinks/Week [...] Sign Reading Time Taken Comments Blood Pressure 140/80 08/12/2016 9:18 AM EDT Pulse 94 08/12/2016 9:18 AM EDT Temperature 37 ??C (98.6 ??F) 08/12/2016 9:18 AM EDT Respiratory Rate - - Oxygen Saturation 98% 08/12/2016 9:18 AM EDT Inhaled Oxygen Concentration - - Weight 130 kg (287 lb) 08/12/2016 9:18 AM EDT Height 188 cm (6' 2 ) 08/12/2016 9:18 AM EDT Body Mass Index 36.85 08/12/2016 9:18 AM EDT documented in this encounter Progress Notes * Good Tapia PA-C - 08/12/2016 9:00 AM EDTAssociated Order(s): ECG 12-LEAD Post-Procedure Diagnose(s): Chest pain, unspecified Sundeep De Guzman is a 26 y.o. male History of Present Illness Patient presents today as a new patient to our practice for a preventive medical visit. Patient is here to determine screening labs and tests that are due and to determine immunization status as well. Patient will be counseled regarding preventative medicine issues such as regular exercise and healthy diet as well. The following portions of the patient's history were reviewed and updated as appropriate: allergies, current medications, past social history and problem list Review of Systems Constitutional: Positive for fatigue. Negative for fever. HENT: Positive for dental problem ( Patient has significant dental caries and has artery seen a dentist [facility] and is scheduled to have dental extractions.). Negative for congestion and trouble swallowing. Respiratory: Positive for chest tightness. Negative for cough, choking and shortness of breath. Cardiovascular: Positive for chest pain ( Patient states that last week he experienced a discomfortin his right upper chest and neck to his shoulder that lasted for approximate 5 days and then went away). Negative for palpitations. Gastrointestinal: Negative for abdominal distention, abdominal pain and nausea. Genitourinary: Negative for difficulty urinating, discharge, dysuria, genital sores, penile pain, penile swelling, scrotal swelling and testicular pain. Patient has been struggling with erectile dysfunction on and off for the past year. Musculoskeletal: Negative for arthralgias, back pain, gait problem, joint swelling, myalgias, neck pain and neck stiffness. Neurological: Positive for light-headedness ( Patient expressed some mild lightheadedness last week, none at this time). Negative for syncope. Psychiatric/Behavioral: Positive for sleep disturbance ( Patient has had great difficulty falling asleep and staying asleep for the past 10 months). Negative for agitation, behavioral problems, confusion, decreased concentration, dysphoric mood ( Denies any depression), self-injury and suicidal ideas. The patient is nervous/anxious ( Patient's had more anxiety over the past 10 months, worries about a lot of things). Objective Vitals: 08/12/16 0918 BP: 140/80 Pulse: 94 Temp: 98.6 ??F (37 ??C) SpO2: 98% Physical Exam Constitutional: He is oriented to person, place, and time. He appears well- developed and well-nourished. No distress. HENT: Head: Normocephalic and atraumatic. Right Ear: External ear normal. Left Ear: External ear normal. Nose: Nose normal. Mouth/Throat: Oropharynx is clear and moist. Abnormal dentition. Dental caries present. No dental abscesses. Eyes: Conjunctivae and EOM are normal. Pupils are equal, round, and reactive to light. Neck: Normal range of motion. Neck supple. No JVD present. No thyroid mass and no thyromegaly present. Cardiovascular: Normal rate, regular rhythm, normal heart sounds and intact distal pulses. No murmur heard. Pulmonary/Chest: Effort normal. No respiratory distress. He has wheezes. He has no rales. He exhibits no tenderness. Abdominal: Soft. Bowel sounds are normal. He exhibits no mass. There is no tenderness. Musculoskeletal: Normal range of motion. He exhibits no edema. Neurological: He is alert and oriented to person, place, and time. He has normal reflexes. No cranial nerve deficit. Skin: Skin is warm and dry. He is not diaphoretic. Psychiatric: His speech is normal and behavior is normal. Judgment and thought content normal. His mood appears anxious. His affect is not angry and not inappropriate. Cognition and memory are normal. He does not exhibit a depressed mood. He is attentive. Nursing note and vitals reviewed. ECG 12 Lead Date/Time: 08/12/2016 11:50 AM Performed by: GOOD TAPIA Authorized by: GOOD TAPIA Comparison: not compared with previous ECG Previous ECG: no previous ECG available Rhythm: sinus rhythm Rate: normal BPM: 85 ST Segments: ST segments normal T Waves: T waves normal QRS axis: normal Clinical impression: abnormal ECG Comments: No acute changes noted on EKG. Poor R-wave progression noted in V2. Discussed preventative medicine issues with patient including regular exercise, healthy diet, stress reduction, adequate sleep and recommended age-appropriate screening studies. I counseled patient regarding the health benefits in smoking cessation for 3 minutes. I also discussed with patient the increased health risks of continued smoking, including increased risk for cancers, increased risk for coronary artery disease, increased risk for stroke, heart attack, COPD and overall worsened lung function and increased lung infections. We discussed different strategies for smoking cessation and prescriptions were offered to assist patient in smoking cessation. Assessment/Plan Diagnoses and all orders for this visit: General medical exam - Basic Metabolic Panel - CBC & Differential - Lipid Panel Insomnia, unspecified type - traZODone (DESYREL) 50 MG tablet; Take 1 tablet by mouth Every Night. For insomnia Chest pain, unspecified - Basic Metabolic Panel - CBC & Differential - Lipid Panel Tobacco abuse counseling Impotence - Testosterone (Free & Total), LC / MS - sildenafil (VIAGRA) 100 MG tablet; Take 1 tablet by mouth Daily As Needed for erectile dysfunction. Anxiety documented in this encounter Plan of Treatment Not on file documented as of this encounter Procedures Procedure Name Priority Date/Time Associated Diagnosis Comments ECG 12-LEAD Routine 08/12/2016 11:54 AM EDT Chest pain, unspecified TESTOSTERONE (FREE AND TOTAL), LC/MS Routine 08/12/2016 10:16 AM EDT Impotence CBC AND DIFFERENTIAL Routine 08/12/2016 10:16 AM EDT General medical exam Chest pain, unspecified LIPID PANEL Routine 08/12/2016 10:16 AM EDT General medical exam Chest pain, unspecified BASIC METABOLIC PANEL Routine 08/12/2016 10:16 AM EDT General medical exam Chest pain, unspecified documented in this encounter Results * ECG 12-LEAD (08/12/2016 11:54 AM EDT) Narrative Good Tapia PA-C - 08/12/2016 11:54 AM EDT Good Tapia PA-C ? 08/12/2016 11:54 AM ECG 12 Lead Date/Time: 08/12/2016 11:50 AM Performed by: GOOD TAPIA Authorized by: GOOD TAPIA Comparison: not compared with previous ECG Previous ECG: no previous ECG available Rhythm: sinus rhythm Rate: normal BPM: 85 ST Segments: ST segments normal T Waves: T waves normal QRS axis: normal Clinical impression: abnormal ECG Comments: No acute changes noted on EKG. ??Poor R-wave progression noted in V2. us Good Tapia PA-C ECG ORDERABLES Final Resu lt * (ABNORMAL) Lipid Panel (08/12/2016 10:16 AM EDT) [facility] Total Cholesterol 133 0 - 200 mg/dL [facility] Comment: Cholesterol Reference Ranges: Desirable ? < 200 mg/dL Borderline ?200-239 mg/dL High Risk ? > 239 mg/dL Triglyceride Reference Ranges: Normal ?< 150 mg/dL Borderline ?150-199 mg/dL High ?200-499 mg/dL Very High ? > 499 mg/dL HDL Reference Ranges: Low ?< 40 mg/dL High ? > 59 mg/dL LDL Reference Ranges: Optimal ? < 100 mg/dL Near Optimal ??100-129 mg/dL Borderline ?130-159 mg/dL High ?160-189 mg/dL Very High ? > 189 mg/dL Triglycerides 108 0 - 150 mg/dL [facility] HDL Cholesterol 29(L) 40 - 60 mg/dL [facility] VLDL Cholesterol 21.6 mg/dL [facility] LDL Cholesterol 82 0 - 100 mg/dL [facility] Blood 08/12/2016 10:1 6 AM EDT 08/12/2016 Narrative [facility] ([facility]) - 08/15/2016 3:10 PM EDT Performed at: ??01 - [address] ??[id number] Sole Dyer: Petar Ferrari MD, Phone: ??[phone] Good Tapia PA-C LAB BLOOD ORDERABLES Final Result [facility] ([facility]) [address] [place] [address], [facility] [address] [place] [address], * (ABNORMAL) CBC & Differential (08/12/2016 10:16 AM EDT) WBC 11.39(H) 3.50 - 10.80 10*3/mm3 [facility] RBC 5.77(H) 4.20 - 5.76 10*6/mm3 [facility] Hemoglobin 16.2 13.1 - 17.5 g/dL [facility] Hematocrit 48.6 38.9 - 50.9 % [facility] MCV 84.2 80.0 - 99.0 fL [facility] MCH 28.1 27.0 - 31.0 pg [facility] MCHC 33.3 32.0 - 36.0 g/dL [facility] RDW 14.1 11.3 - 14.5 % [facility] Platelets 170 150 - 450 10*3/mm3 [facility] Neutrophil Rel % 56.9 41.0 - 71.0 % [facility] Lymphocyte Rel % 33.7 24.0 - 44.0 % [facility] Monocyte Rel % 5.7 0.0 - 12.0 % [facility] Eosinophil Rel % 2.8 0.0 - 3.0 % [facility] Basophil Rel % 0.4 0.0 - 1.0 % [facility] Neutrophils Absolute 6.47 1.50 - 8.30 10*3/mm3 [facility] Lymphocytes Absolute 3.84 0.60 - 4.80 10*3/mm3 [facility] Monocytes Absolute 0.65 0.00 - 1.00 10*3/mm3 [facility] Eosinophils Absolute 0.32(H) 0.10 - 0.30 10*3/mm3 [facility] Basophils Absolute 0.05 0.00 - 0.20 10*3/mm3 [facility] Immature Granulocyte Rel % 0.5 0.0 - 0.6 % [facility] Immature Grans Absolute 0.06(H) 0.00 - 0.03 10*3/mm3 [facility] Blood 08/12/2016 10:1 6 AM EDT 08/12/2016 Narrative [facility] ([facility]) - 08/15/2016 3:10 PM EDT Performed at: ??[address] ??[id number] Sole Dyer: Petar Ferrari MD, Phone: ??[phone] Good Tapia PA-C LAB BLOOD ORDERABLES Final Result [facility] ([facility]) [address] [place] [address], [facility] [address] [place] [address], * Basic Metabolic Panel (08/12/2016 10:16 AM EDT) Glucose 95 70 - 100 mg/dL [facility] BUN 19 9 - 23 mg/dL [facility] Creatinine 0.80 0.60 - 1.30 mg/dL [facility] eGFR Non Am 115 >60 mL/min/1.7 3 [facility] Comment: National Kidney Foundation Guidelines Stage ? Description ?GFR 1 ? Normal or High ? 90+ 2 ? Mild decrease ?60-89 3 ? Moderate decrease ??30-59 4 ? Severe decrease ?15-29 5 ? Kidney failure ? <15 eGFR Am 140 >60 mL/min/1.7 3 [facility] BUN/Creatinine Ratio 23.8 7.0 - 25.0 [facility] Sodium 139 132 - 146 mmol/L [facility] Potassium 4.3 3.5 - 5.5 mmol/L [facility] Chloride 107 99 - 109 mmol/L [facility] Total CO2 28.0 20.0 - 31.0 mmol/L [facility] Calcium 9.7 8.7 - 10.4 mg/dL [facility] Blood 08/12/2016 10:1 6 AM EDT 08/12/2016 Narrative [facility] [facility] (AMBULATORY) - 08/15/2016 3:10 PM EDT Performed at: ??[address] - [address] ??[id number] Sole Dyer: Petar Ferrari MD, Phone: ??[phone] Good Tapia PA-C LAB BLOOD ORDERABLES Final Result [facility] ([facility]ULAT[facility]) [address] [place] [address], [facility] [address] [place] [address], * (ABNORMAL) Testosterone (Free & Total), LC / MS (08/12/2016 10:16 AM EDT) Testosterone, Total 521.0 348.0 - 1,197.0 ng/dL [facility] Comment: Adult male reference interval is based on a population of lean males up to 40 years old. This test was developed and its performance characteristics determined by [facility]. It has not been cleared or approved by the Food and Drug Administration. Testosterone, Free 3.1(L) 9.3 - 26.5 pg/mL [facility] Blood 08/12/2016 10:1 6 AM EDT 08/12/2016 Narrative [facility] ([facility]) - 08/15/2016 3:10 PM EDT Performed at: ??02 - [facility] [address] ??[id number] Sole Dyer: Oscar Russell MD, Phone: ??[phone] Good Tapia PA-C LAB BLOOD ORDERABLES Final Result [facility] ([facility]) [address] [place] [address], [place] [phone] [facility] [address] [place] [address], [place] [phone] documented in this encounter Visit Diagnoses Diagnosis General medical exam- Primary Unspecified general medical examination Insomnia, unspecified type Chest pain, unspecified Tobacco abuse counseling Impotence Impotence of organic origin Anxiety Anxiety state, unspecified documented in this encounter Care Teams Hydraulic Modeling Engineer Relationship Specialty Start Date End Date Good Tapia PA-C [address] [facility] [address] [place] [address] PCP - General Family Medicine 08/12/16 documented as of this encounter
--- OUTSIDE RECORDS SUMMARY | 2024-03-04 13:37 | XMS_ITS | Encounter Summary ---
Author Organization [facility] Address [address] [place] [id number] Care Team Providers Care Sheet Heater Helper Name Role Phone Allyssa Vogel PA-C Primary Care Provider +1- [phone] Reason for Visit * Reason Onset Date Comments Med Refill 07/07/2021 Encounter Details Date Type Department Care Team (Late st Contact Info) Description 07/07/2021 Refill [facility] [address]60 [facility] [address] [place] [id number] Nathaniel Coats MD [address] [facility] [address] [place] [address] Obesity (BMI 30-39.9) Social History [...] Telephone Encounter - Radha Regalado MA - 07/07/2021 4:45 PM EDT Completed video visit for weight, needs meds sent to pharm documented in this encounter Plan of Treatment Not on file documented as of this encounter Visit Diagnoses Diagnosis Obesity (BMI 30-39.9) documented in this encounter Care Teams Sheet Heater Helper Relationship Specialty Start Date End Date Allyssa Vogel PA-C [address] [facility] [address] [place] [address] PCP - General Family Medicine 08/12/16 documented as of this encounter
--- OUTSIDE RECORDS SUMMARY | 2024-03-04 13:37 | XMS_ITS | Encounter Summary ---
Author Organization [facility] Address [address] [place] [address] Care Team Providers Care Defect Repairer Glassware Name Role Phone Allyssa Vogel PA-C Primary Care Provider +1- [phone] Reason for Visit * Reason Comments Follow-up f/u on chest pain Anxiety Encounter Details Date Type Department Care Team (Late st Contact Info) Description 11/20/2019 9:30 AM EDT Office Visit [facility] 1760 [facility] [place] [address] [place] [address] Shantanu Sánchez PA [address] [facility] [address] [place] [address] AMELIA (generalized anxiety disorder) (Primary Dx) Social History Tobacco Use Types [...] Sign Reading Time Taken Comments Blood Pressure 128/92 11/20/2019 9:34 AM EDT Pulse 109 11/20/2019 9:34 AM EDT Temperature 36.5 ??C (97.7 ??F) 11/20/2019 9:34 AM ED T Respiratory Rate 20 11/20/2019 9:34 AM EDT Oxygen Saturation 97% 11/20/2019 9:34 AM EDT Inhaled Oxygen Concentration - - Weight 129 kg (284 lb) 11/20/2019 9:34 AM EDT Height 193 cm (6' 4 ) 11/20/2019 9:34 AM EDT Body Mass Index 34.57 11/20/2019 9:34 AM EDT documented in this encounter Progress Notes * Shantanu Sánchez PA - 11/20/2019 9:30 AM EDT Sundeep De Guzman is a 29 y.o. male Follow-up (f/u on chest pain ) and Anxiety History of Present Illness Patient is a pleasant 29-year-old white male who comes in complaining of anxiety trouble with focusand concentration trouble with mood swings trouble with focus and concentration no SI/HI. Patient has had a large amount of stress and focus patient has trouble with stress at work states that he hadtrouble concentrating states he has anxiety throughout the day he has trouble sleeping on occasion. The following portions of the patient's history [...] weakness, light-headedness, numbness and headaches. Objective Vitals: 11/20/19 0934 BP: 128/92 Pulse: 109 Resp: 20 Temp: 97.7 ??F (36.5 ??C) SpO2: 97% Physical Exam Constitutional: He appears well-developed and [...] diaphoretic. Nursing note and vitals reviewed. Assessment/Plan Hunter was seen today for follow-up and anxiety. Diagnoses and all orders for this visit: AMELIA (generalized anxiety disorder) #1 citalopram 20 mg 1 p.o. every day dispense 30??6 refills Time spent with patient 16 minutes with patient discussing treatment plan long- term treatment discussed ways to improve focus and concentration anxiety * Nathaniel Coats MD - 11/20/2019 9:30 AM EDT I have reviewed the notes, assessments, and/or procedures performed by Marcellus Sánchez PA-C, I concur with his documentation of Hunter De Guzman. documented in this encounter Plan of Treatment Not on file documented as of this encounter Visit Diagnoses Diagnosis AMELIA (generalized anxiety disorder)- Primary Generalized anxiety disorder documented in this encounter Care Teams Defect Repairer Glassware Relationship Specialty Start Date End Date Allyssa Vogel PA-C [address] [facility] [address] PCP - General Family Medicine 08/12/16 documented as of this encounter
--- OUTSIDE RECORDS SUMMARY | 2024-03-04 13:37 | XMS_ITS | Clinical Summary ---
Author Organization [facility] Address [address] [place] [address] Care Team Providers Care Bulk Materials Handling Plant Operator Name Role Phone Allyssa Vogel PA-C Primary Care Provider +1- [phone] Allergies No known active allergies Medications phentermine (ADIPEX-P) 37.5 MG tablet Take 1 tablet by mouth Every Morning Before Breakfast. Active Loratadine (Claritin) 10 MG capsule Take by mouth. OTC Active losartan (COZAAR) 100 MG tablet Take 1 tablet by mouth Daily. for blood pressure 30 tablet 5 09/01/19 24 Active levocetirizine (XYZAL) 5 MG tablet Take 1 tablet by mouth Every Evening. For allergies 30 tablet 5 09/01/19 24 Active citalopram (CeleXA) 20 MG tablet Take 1 tablet by mouth Daily. 30 tablet 6 11/28/19 20 021 Discontinued Active Problems Problem Noted Date Diagnosed Date Morbidly obese 05/09/2020 Gastroesophageal reflux disease without esophagi tis 11/08/2019 Immunizations Name Administration Dates Next Due Fluzone >6mos 03/26/2013 Pneumococcal Polysaccharide (PPSV23) 03/26/2013 Family History 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 Relation Name Comments Diabetes Father Heart disease Father Hypertension Father Relation Name Status Comments Father Alive Mother Alive Social History Tobacco Use Types Packs/Day Years [...] Sign Reading Time Taken Comments Blood Pressure 146/84 09/01/2023 2:00 PM EDT Pulse 103 09/01/2023 2:00 PM EDT Temperature 36.7 ??C (98.1 ??F) 09/01/2023 2:00 PM ED T Respiratory Rate 20 06/21/2023 1:31 PM EDT Oxygen Saturation 99% 09/01/2023 2:00 PM EDT Inhaled Oxygen Concentration - - Weight 148 kg (326 lb 6.4 oz) 09/01/2023 2:00 PM EDT Height 190.5 cm (6' 3 ) 09/01/2023 2:00 PM EDT Body Mass Index 40.8 09/01/2023 2:00 PM EDT Plan of Treatment Health Maintenance Due Date Last Done Comments TDAP/TD VACCINES (1 - Tdap) 08/10/2007 Pneumococcal Vaccine 0-64 (2 of 2 - PCV) 03/26/2014 03/26/2013 HEPATITIS C SCREENING 04/21/2016 ANNUAL PHYSICAL 08/12/2017 08/12/2016 INFLUENZA VACCINE 11/11/2023 03/26/2013 COVID-19 Vaccine ( season) 2023 BMI FOLLOWUP 01/20/2024 01/19/2023 Insurance [employer] [place]ICAID [place] Care Teams Bulk Materials Handling Plant Operator Relationship Specialty Start Date End Date Allyssa Vogel PA-C [address] [place] [address] [place] [id number] PCP - General Family Medicine 08/12/16
--- OUTSIDE RECORDS SUMMARY | 2024-03-04 13:37 | XMS_ITS | Encounter Summary ---
[facility] Address [address] [id number] Care Team Providers Care Display Director Name Role Phone Allyssa Vogel PA-C Primary Care Provider +1- [phone] Reason for Referral * Consultation (Routine) - Authorized Specialty Diagnoses / Procedures Referred By Dea sneed Referred To Contact Sleep Medicine Diagnoses Sleep apnea-like behavior Procedures OK OFFICE/OUTPATIENT NEW MODERATE MDM 45 MINUTES Allyssa Vogel PA-C [address] [facility] [address] [place] [address] Phone: tel: fax: [facility] [address] [facility] [address] [place] [address] Phone: tel: fax: Referral ID Status Reason Start Date Expiration Date V isits Requested Visits Authorized [id number] Authorized 09/01/2023 08/31/2024 1 1 Reason for Visit * Reason Comments Allergies Sneezing, watery eye s, has had relief with Claritin Snoring Ongoing snoring, prasanna y tired throughout the day, no energy Hypertension Follow up on BP, doi ng well on Losartan Encounter Details Date Type Department Care Team (Late st Contact Info) Description 09/01/2023 1:45 PM EDT Office Visit [facility] [address] [facility] [address] [place] [address] Allyssa Vogel PA-C [address] [facility] [address] [place] [address] Hypertension, unspecified type (Primary Dx); Chronic fatigue; Sleep apnea-like behavior; Low libido; Seasonal allergic rhinitis, unspecified trigger Social History Tobacco Use Types Packs/Day Years [...] 09/01/2023 2:00 PM ED T Respiratory Rate - - Oxygen Saturation 99% 09/01/2023 2:00 PM EDT Inhaled Oxygen Concentration - - Weight 148 kg (326 lb 6.4 oz) 09/01/2023 2:00 PM EDT Height 190.5 cm (6' 3 ) 09/01/2023 2:00 PM EDT Body Mass Index 40.8 09/01/2023 2:00 PM EDT documented in this encounter Progress Notes * Allyssa Vogel PA-C - 09/01/2023 1:45 PM EDT Subjective Hunter De Guzman is a 33 y.o. male Allergies (Sneezing, watery eyes, has had relief with Claritin ), Snoring (Ongoing snoring, very tired throughout the day, no energy ), and Hypertension (Follow up on BP, doing well on Losartan) History of Present Illness Hunter De Guzman, 1990, presents for a follow up visit. His blood pressure has shown improvement. He expresses concern about his persistent alertness and wakefulness. He experiences frequent nocturnal snoring and expresses a desire to undergo laboratories to rule out anemia or diabetes mellitus. He describes a persistent feeling of malaise and unrested sleep, with only one instance of feeling re freshed upon waking a day out of the approximate 3-month span. He has made dietary modifications, including the elimination of snacks, and substituting trailed mix with dehydrated fruit. He has also incorporated a protein-rich diet and has been avoiding carbohydrates. He has been experiencing a diminished sexual desire. Today he experiences a month-long period of illness, characterized by sneezing and watery eyes. He attempted to manage these symptoms with Claritin; however, continues to experience significant drainage. The following portions of the patient's history were reviewed and updated as appropriate: allergies, current medications, past social history and problem list Review of Systems Constitutional: Positive for fatigue. Negative for unexpected weight change. Respiratory: Positive for apnea (apnea like behavior). Negative for cough, chest tightness and shortness of breath. Cardiovascular: Negative for chest pain, palpitations and leg swelling. Gastrointestinal: Negative for nausea. Genitourinary: ED, low libido Skin: Negative for color change and rash. Neurological: Negative for dizziness, syncope, weakness and headaches. Objective Vitals: 09/01/23 1400 BP: 146/84 Pulse: 103 Temp: 98.1 ??F (36.7 ??C) SpO2: 99% Physical Exam Vitals and nursing note reviewed. Constitutional: General: He is not in acute distress. Appearance: Normal appearance. He is well-developed. He is obese. He is not ill- appearing, toxic-appearing or diaphoretic. Comments: [id number] noted Neck: Thyroid: No thyromegaly. Vascular: No carotid bruit or JVD. Cardiovascular: Rate and Rhythm: Normal rate and regular rhythm. Pulses: Normal pulses. Heart sounds: Normal heart sounds. No murmur heard. Pulmonary: Effort: Pulmonary effort is normal. No respiratory distress. Breath sounds: Normal breath sounds. Abdominal: Palpations: Abdomen is soft. There is no mass. Tenderness: There is no abdominal tenderness. Skin: General: Skin is warm and dry. Neurological: Mental Status: He is alert. Psychiatric: Mood and Affect: Mood normal. Behavior: Behavior normal. Thought Content: Thought content normal. Judgment: Judgment normal. Assessment & Plan Hypertension. His blood pressure has shown improvement. Prescriptions for his antihypertensive medication have been renewed. Potential sleep apnea. A referral to a sleep specialist will be made for a home sleep study. Erectile dysfunction. His fatigue could potentially be attributed to low testosterone levels. Testosterone levels will bechecked. Seasonal allergies. He continues to experience significant drainage despite the use of Claritin. He is advised to discontinue Claritin and commence a stronger allergy medication. Cerumen impaction. He is advised to use Debrox biweekly. Diagnoses and all orders for this visit: 1. Hypertension, unspecified type (Primary) 2. Chronic fatigue - TSH; Future - CBC (No Diff); Future - Testosterone (Free & Total), LC / MS; Future - Comprehensive metabolic panel; Future 3. Sleep apnea-like behavior - Ambulatory Referral to Sleep Medicine 4. Low libido - Testosterone (Free & Total), LC / MS; Future 5. Seasonal allergic rhinitis, unspecified trigger Other orders - losartan (COZAAR) 100 MG tablet; Take 1 tablet by mouth Daily. for blood pressure Dispense: 30 tablet; Refill: 5 - levocetirizine (XYZAL) 5 MG tablet; Take 1 tablet by mouth Every Evening. For allergies Dispense:30 tablet; Refill: 5 Transcribed from ambient dictation for Allyssa Vogel PA-C by Barbara Montero. 09/01/23 14:30 EDT Patient or patient member services representative verbalized consent to the visit recording. I have personally performed the services described in this document as transcribed by the above individual, and it is both accurate and complete. documented in this encounter Plan of Treatment Scheduled Referrals Name Type Priority Associated Diagnoses Order Schedule Ambulatory Referral to Sleep Medicine Outpatient Referral Routine Sleep apnea-like behavior Ordered: 09/01/2023 documented as of this encounter Results * (ABNORMAL) Comprehensive metabolic panel (09/01/2023 2:44 PM EDT) Glucose 113(H) 65 - 99 mg/dL 09/01/2023 6:57 PM EDT [facility] BUN 8 6 - 20 mg/dL 09/01/2023 6:57 PM EDT [facility] Creatinine 0.71(L) 0.76 - 1.27 mg/dL 09/01/2023 6:57 PM EDT [facility] Sodium 140 136 - 145 mmol/L 09/01/2023 6:57 PM EDT [facility] Potassium 3.8 3.5 - 5.2 mmol/L 09/01/2023 6:57 PM EDT [facility] Chloride 105 98 - 107 mmol/L 09/01/2023 6:57 PM EDT [facility] CO2 25.0 22.0 - 29.0 mmol/L 09/01/2023 6:57 PM EDT [facility] Calcium 8.6 8.6 - 10.5 mg/dL 09/01/2023 6:57 PM EDT [facility] Total Protein 7.3 6.0 - 8.5 g/dL 09/01/2023 6:57 PM EDT [facility] Albumin 3.8 3.5 - 5.2 g/dL 09/01/2023 6:57 PM EDT [facility] ALT (SGPT) 145(H) 1 - 41 U/L 09/01/2023 6:57 PM EDT [facility] AST (SGOT) 237(H) 1 - 40 U/L 09/01/2023 6:57 PM EDT [facility] Alkaline Phosphatase 150(H) 39 - 117 U/L 09/01/2023 6:57 PM EDT [facility] Total Bilirubin 1.0 0.0 - 1.2 mg/dL 09/01/2023 6:57 PM EDT [facility] Globulin 3.5 gm/dL 09/01/2023 6:57 PM [facility] A/G Ratio 1.1 g/dL 09/01/2023 6:57 PM EDT [facility] BUN/Creatinine Ratio 11.3 7.0 - 25.0 09/01/2023 6:57 PM T [facility] Anion Gap 10.0 5.0 - 15.0 mmol/L 09/01/2023 6:57 PM EDT [facility] eGFR 122.7 >60.0 mL/min/1.7 3 09/01/2023 6:57 PM T [facility] Blood Venipuncture / Unknown 09/01/2023 2:44 PM EDT 09/01/2023 2:44 PM EDT Narrative [facility] - 09/01/2023 6:57 PM EDT GFR Normal >60 Chronic Kidney Disease <60 Kidney Failure <15 us Allyssa Vogel PA-C LAB BLOOD ORDERABLES Final Result [facility]
[address] [place] [address], * (ABNORMAL) Testosterone (Free & Total), LC / MS (09/01/2023 2:44 PM EDT) Testosterone, Total 23.3(L) 264.0 - 916.0 ng/dL 09/09/2023 12:07 AM EDT [facility] Comment: This [facility] LC/MS-MS method is currently certified by the CDC Hormone Standardization Program (HoSt). Adult male reference interval is based on a population of healthy nonobese males (BMI <30) between 19 and 39 years old. Buddy et.al. JCEM 2017,102;4033-1419. PMID: [id number]. Verified by repeat analysis Testosterone, Free 0.3(L) 8.7 - 25.1 pg/mL 09/09/2023 12:07 AM EDT [facility] Blood Venipuncture / Unknown 09/01/2023 2:44 PM EDT 09/01/2023 2:44 PM EDT Narrative [facility] - 09/09/2023 12:07 AM EDT Test(s) [id number], Total, LC/MS was developed and its performance characteristics determined by [facility]. It has not been cleared or approved by the Food and Drug Administration. Performed at: ??01 - [address] ??[id number] Media Theorist And Author Of: Starla Gill MD, Phone: ??[phone] Allyssa Vogel PA-C LAB BLOOD ORDERABLES Final Result [facility] [address] [place] [address], * (ABNORMAL) CBC (No Diff) (09/01/2023 2:44 PM EDT) WBC 4.56 3.40 - 10.80 10*3/mm3 09/01/2023 6:45 PM EDT [facility] RBC 5.14 4.14 - 5.80 10*6/mm3 09/01/2023 6:45 PM EDT [facility] Hemoglobin 14.9 13.0 - 17.7 g/dL 09/01/2023 6:45 PM EDT [facility] Hematocrit 44.5 37.5 - 51.0 % 09/01/2023 6:45 PM EDT [facility] MCV 86.6 79.0 - 97.0 fL 09/01/2023 6:45 PM EDT [facility] MCH 29.0 26.6 - 33.0 pg 09/01/2023 6:45 PM EDT [facility] MCHC 33.5 31.5 - 35.7 g/dL 09/01/2023 6:45 PM EDT [facility] RDW 13.6 12.3 - 15.4 % 09/01/2023 6:45 PM EDT [facility] RDW-SD 43.0 37.0 - 54.0 fl 09/01/2023 6:45 PM EDT [facility] MPV 11.6 6.0 - 12.0 fL 09/01/2023 6:45 PM EDT [facility] Platelets 65(L) 140 - 450 10*3/mm3 09/01/2023 6:45 PM EDT [facility] Blood Venipuncture / Unknown 09/01/2023 2:44 PM EDT 09/01/2023 2:44 PM EDT Allyssa GRAMAJO-C LAB BLOOD ORDERABLES Final Result [facility]
[address] [place] [address], * TSH (09/01/2023 2:44 PM EDT) TSH 0.920 0.270 - 4.200 uIU/mL 09/01/2023 7:07 PM EDT [facility] Blood Venipuncture / Unknown 09/01/2023 2:44 PM EDT 09/01/2023 2:44 PM EDT Allyssa Vogel PA-C LAB BLOOD ORDERABLES Final Result [facility]
[address] [place] [address], documented in this encounter Visit Diagnoses Diagnosis Hypertension, unspecified type- Primary Chronic fatigue Other malaise and fatigue Sleep apnea-like behavior Low libido Seasonal allergic rhinitis, unspecified trigger documented in this encounter Care Teams Display Director Relationship Specialty Start Date End Date Allyssa Vogel PA-C [address] [facility] [address] [place] [address] PCP - General Family Medicine 08/12/16 documented as of this encounter
--- OUTSIDE RECORDS SUMMARY | 2024-03-04 13:37 | XMS_ITS | Encounter Summary ---
Author Organization [facility] Address [address] [place] [address] Care Team Providers Care Generator Man Name Role Phone Allyssa Vogel PA-C Primary Care Provider +1- [phone] Reason for Visit * Reason Comments Lower Extremity Issue redness, swelling noted on lower right leg starting this AM Encounter Details Date Type Department Care Team (Late st Contact Info) Description 12/07/2020 2:55 PM EDT - 12/07/2020 3:47 PM EDT Hospital Encounter [facility] [address] Lizabeth Toledo, REFRIGERATOR MOVER [address] [place] [address] Cellulitis of right lower extremity without foot (Primary Dx) Discharge Disposition: Home or Self [...] Sign Reading Time Taken Comments Blood Pressure 152/86 12/07/2020 2:58 PM EDT Pulse 95 12/07/2020 2:58 PM EDT Temperature 36.7 ??C (98.1 ??F) 12/07/2020 2:58 PM ED T Respiratory Rate 14 12/07/2020 2:58 PM EDT Oxygen Saturation 99% 12/07/2020 2:58 PM EDT Inhaled Oxygen Concentration - - Weight - - Height - - Body Mass Index - - documented in this encounter Discharge Instructions * Discharge Instructions* Lizabeth Toledo APRN - 12/07/2020 3:23 PM EDT ---Please utilize tylenol or ibuprofen as needed for fever or pain. Use as recommended. --Use mucinex or equivalent over the counter medicine for congestion. --Increase fluids (Adults- 8-10 eight ounce glasses of fluid a day). Nonalcoholic and noncafeinatedbeverages -watch wound daily for signs and symptoms of infection ----Pt notified to recheck BP in 1-2 days and f/u with PCP if continues to remain high (over 135/85). * Attachments The following attachments cannot be sent through Care Everywhere. * Cellulitis Adult (Citizen Of [place]) documented in this encounter Medications at Time of Discharge mupirocin (BACTROBAN) 2 % ointmentIndicati ons:Cellulitis of right lower extremity without foot Apply topically to the appropriate area as directed 2 (Two) Times a Day for 7 days. Wound and nares 30 g 12/07/2020 1 sulfamethoxazole -trimethoprim (Bactrim DS) 800-160 MG per tabletIndication s:Cellulitis of right lower extremity without foot Take 1 tablet by mouth 2 (Two) Times a Day for 10 days. 20 tablet 12/07/2020 1 phentermine (ADIPEX-P) 37.5 MG tabletIndication s:Obesity (BMI 30-39.9) Take 1 tablet by mouth Daily. 30 tablet 3 09/06/2020 1 documented as of this encounter ED Notes * Lizabeth Toledo, REFRIGERATOR MOVER - 12/07/2020 2:58 PM EDT Images from the original note were not included. Hunter De Guzman is a 30 y.o. male with Chief Complaint Patient presents with ??? Lower Extremity Issue redness, swelling noted on lower right leg starting this AM BP 152/86 (BP Location: Left arm, Patient Position: Sitting) Pulse 95 Temp 98.1 ??F (36.7 ??C) (Temporal) Resp 14 SpO2 99% Pt has redness, swelling noted on lower right leg starting this AM-had an MRSA old injury in this area 12 years ago and thinks he may have scratched it and did not wash his hands. 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 Lower Extremity Issue Location: Leg Time since incident: 8 hours Leg location: R lower leg Pain details: Quality: Aching Radiates to: Does not radiate Severity: Moderate Onset quality: Sudden Duration: 8 hours Timing: Constant Progression: Worsening Chronicity: New Dislocation: no Foreign body present: No foreign bodies Prior injury to area: Yes Relieved by: Nothing Worsened by: Nothing Ineffective treatments: None tried Associated symptoms: fatigue, stiffness and swelling Associated symptoms: no back pain, no decreased ROM, no fever, no itching, no muscle weakness, no neck pain, no numbness and no tingling Risk factors: obesity Risk factors: no concern for non-accidental trauma, no frequent fractures, no known bone disorder and no recent illness No Known Allergies Past 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: Diagnosis Date ??? Hypertension No LMP for male patient. History reviewed. No pertinent surgical history. Social History Socioeconomic History ??? Marital status: Single Spouse name: Not on file ??? Number of children: Not on file ??? Years of education: Not on file ??? Highest education level: Not on file Tobacco Use ??? Smoking status: Current Every Day Smoker Packs/day: 2.00 Types: Cigarettes ??? Smokeless tobacco: Never Used Substance and Sexual Activity ??? Alcohol use: Yes ??? Drug use: No Review of Systems Constitutional: Positive for fatigue. Negative for activity change, chills, diaphoresis and fever. HENT: Negative for congestion, postnasal drip, rhinorrhea, sinus pressure, sinus pain, sneezing, sore throat and voice change. Eyes: Negative for pain, discharge and redness. Respiratory: Negative for cough, chest tightness and shortness of breath. Cardiovascular: Negative for chest pain. Gastrointestinal: Negative for diarrhea, nausea and vomiting. Musculoskeletal: Positive for stiffness. Negative for arthralgias, back pain, myalgias and neck pain. Skin: Positive for color change and wound. Negative for itching and rash. Pallor: scratched. Allergic/Immunologic: Negative for environmental allergies. Neurological: Negative for dizziness, light-headedness and headaches. Psychiatric/Behavioral: Negative for agitation. Physical Exam Vitals reviewed. Constitutional: Appearance: He is well-developed. He is obese. He is ill-appearing. HENT: Head: Normocephalic and atraumatic. Right Ear: External ear normal. Left Ear: External ear normal. Nose: Nose normal. Right Sinus: No maxillary sinus tenderness or frontal sinus tenderness. Left Sinus: No maxillary sinus tenderness or frontal sinus tenderness. Eyes: General: Lids are normal. Conjunctiva/sclera: Conjunctivae normal. Cardiovascular: Heart sounds: Normal heart sounds. Pulmonary: Effort: Pulmonary effort is normal. Breath sounds: Normal breath sounds. Abdominal: Tenderness: There is no abdominal tenderness. Skin: General: Skin is warm and dry. Findings: Erythema and wound present. No rash. Neurological: Mental Status: He is alert and oriented to person, place, and time. Psychiatric: Speech: Speech normal. Behavior: Behavior normal. Behavior is cooperative. No orders to display Labs Reviewed - No data to display Problems Addressed this Visit None Visit Diagnoses Cellulitis of right lower extremity without foot - Primary Relevant Medications sulfamethoxazole-trimethoprim (Bactrim DS) 800-160 MG per tablet mupirocin (BACTROBAN) 2 % ointment Diagnoses Codes Comments Cellulitis of right lower extremity without foot - Primary ICD-10-CM: L03.115 ICD-9-CM: 682.6 Procedures Medications cefTRIAXone (ROCEPHIN) injection 1 g (has no administration in time range) Medication List START taking these medications mupirocin 2 % ointment Commonly known as: BACTROBAN Apply topically to the appropriate area as directed 2 (Two) Times a Day for [address] wound and bilateral nares with a Q-tip . sulfamethoxazole-trimethoprim 800-160 MG per tablet Commonly known as: Bactrim DS Take 1 tablet by mouth 2 (Two) Times a Day for 10 days. CONTINUE taking these medications phentermine 37.5 MG tablet Commonly known as: ADIPEX-P Take 1 tablet by mouth Daily. STOP taking these medications citalopram 20 MG tablet Commonly known as: CeleXA cyclobenzaprine 10 MG tablet Commonly known as: FLEXERIL omeprazole 40 MG capsule Commonly known as: priLOSEC Where to Get Your Medications These medications were sent to [facility]/pharmacy #[id number] - [place], [place] - [address] [place] [address] AT [place] [address] - [phone] [facility] [phone] [address] Hours: 24-hours ?? sulfamethoxazole-trimethoprim 800-160 MG per tablet You can get these medications from any pharmacy Bring a paper prescription for each of these medications ?? mupirocin 2 % ointment Hunter De Guzman reports that he has been smoking cigarettes. He has been smoking about 2.00 packs per day. He has never used smokeless tobacco. Current tobacco users are offered counseling on tobacco cessation and encouraged to discuss optionswith their primary care provider. Patient has had right lower extremity redness, swelling around the gaiter area of the right lower extremity. Patient states that he was scratching this area and had not washed his hands. Patient has history of MRSA. Treated with Bactrim and Rocephin injection. Mupirocin ointment given and patient to swab bilateral nares twice daily for 7 days. Please follow up with your PMD in [...] occasionally words are mistranscribed. Lizabeth Toledo APRN 12/07/20 1504 Lizabeth Toledo APRN 12/07/20 1516 Lizabeth Toledo APRN 12/07/20 1524 documented in this encounter Plan of Treatment Not on file documented as of this encounter Visit Diagnoses Diagnosis Cellulitis of right lower extremity without foot- Primary documented in this encounter Administered Medications Inactive Administered Medications - up to 3 most recent administrations Medication Order MAR Action Action Date Dose Rate Site cefTRIAXone (ROCEPHIN) injection 1 g 1 g, Intramuscular, Once, On 12/07/20 at 1517, For 1 dose, Caution: Look alike/sound alike drug alert, Indications: Skin and Soft Tissue InfectionIndications:Skin and Soft Tissue Infection Given 12/07/2020 3:26 PM EDT 1 g Left Dorsogluteal documented in this encounter Active and Recently Administered Medications Times are shown in EDT. Scheduled Medication Order 12/05/2020 12/06/2020 12/07/2020 cefTRIAXone (ROCEPHIN) injection 1 g (COMPLETED) 1 g, Intramuscular, Once, On 12/07/20 at 1517, For 1 dose, Caution: Look alike/sound alike drug alert, Indications: Skin and Soft Tissue Infection 1526 (Given - Provid er: Amalia Byrne MA) documented in this encounter Care Teams Generator Man Relationship Specialty Start Date End Date Allyssa Vogel PA-C [address] [place] [address] PCP - General Family Medicine 08/12/16 documented as of this encounter
--- OUTSIDE RECORDS SUMMARY | 2024-03-04 13:37 | XMS_ITS | Encounter Summary ---
[facility] Address [address] [place] [address] Care Team Providers Care Flooring Helper Name Role Phone Allyssa Vogel PA-C Primary Care Provider +1- [phone] Encounter Details Date Type Department Care Team (Late st Contact Info) Description 11/28/2019 Telephone [facility] [address] [facility] [address] [place] [address] Shantanu Sánchez PA [address] [facility] [address] [place] [id number] Social History Tobacco Use Types Packs/Day Years [...] Telephone Encounter - Nell Parra MA - 11/28/2019 10:15 AM EDT The only thing Marcellus started him on was citalopram according to his office note but it doesn't look like it was sent in. I have sent med to [facility]. * Telephone Encounter - Jessica Babb RegSched Rep - 11/28/2019 9:41 AM EDT PATIENT'S FIANCE CALLED. SHE STATES PT WAS IN TO SEE MARCELLUS LAST WEEK AND WAS SUPPOSE TO GET SOME MEDICATION CALLED IN. HOWEVER, PATIENT HAS NOT RECEIVED HIS PRESCRIPTION. PATIENT DOES NOT REMEMBER THENAME OF THE MEDICATION. HE THINKS IT STARTS WITH AN L . THE ONLY NEW MEDICATION I SEE IN HIS CHARTIS CITALOPRAM. PATIENT'S PHARMACY IS [facility] IN [place]. documented in this encounter Plan of Treatment Not on file documented as of this encounter Visit Diagnoses Not on filedocumented in this encounter Care Teams Flooring Helper Relationship Specialty Start Date End Date Allyssa Vogel PA-C [address] [facility] [address] [place] [address] PCP - General Family Medicine 08/12/16 documented as of this encounter
--- OUTSIDE RECORDS SUMMARY | 2024-03-04 13:38 | XMS_ITS | Encounter Summary ---
Author Organization Healthcare Address [address] [place] [address] Care Team Providers Care Plate Printer Name Role Phone Unavailable Primary Care Provider Unavailabl e Encounter Details Date Type Department Care Team (Late st Contact Info) Description 04/14/2013 Legacy AEHR Vitals Encounter [facility] OUTPATIENT CONVERSIONS [address] [place] [address] ProviderLiliya MD [address] [place], [place] [id number] Social History Tobacco Use Types Packs/Day Years [...] Mass Index 29.12 04/14/2013 10:31 AM EST documented in this encounter Plan of Treatment Upcoming Encounters Date Type Department Care Team (Late st Contact Info) Description 03/21/2024 7:45 AM EST Clinical Support [facility] [address] [place] [address] 03/21/2024 9:20 AM EST Office Visit [facility] [place] [address] [place] [address] Jean Greer MD [address] [place] [address] 03/21/2024 10:00 AM EST Office Visit [facility] [address] [place] [address] Surgeon, Transplant Liver documented as of this encounter Visit Diagnoses Not on filedocumented in this encounter
--- OUTSIDE RECORDS SUMMARY | 2024-03-04 13:38 | XMS_ITS | Continuity of Care Document ---
Author Organization [facility] Clini c, GASTRO SB Address [address] [facility] [address] [place] [address] Care Team Providers Care Suction Plate Roller Hand Name Role Phone GOOD TAPIA Referring Provider [phone] Assessment Encounter Date Assessment Date Assessment LastModified by Organization Details LastModified Time 02/17/2024 02/17/2024 keep working on weight loss/activity /nutrition rtc 3 mos [email or web address] Not available 02/17/2024 15:53:23 Plan of Treatment Reminders Order Date Submit Date Provider Last Modified By Organization Details Last Modified Time Details Appointments ULTRASO UND 2024 08:00A M ULTRASOUND Not available Not available Not available RECHECK 2024 03:20P M LETITIA HICKS MD Not available Not available Not available RECHECK 2024 10:30A M JUSTA US MD Not available Not available Not available Lab None recorde d. Referral None recorde d. Procedures None recorde d. Surgeries None recorde d. Imaging None recorde d. Medication Orders None recorde d. Patient TargetsNo targets recorded. Patient InstructionsNo instructions recorded. Reason for Referral None Reported. Medical Equipment None Reported. Allergies No known drug allergies Medications Name Sig Start Date Stop Date Status Note LastModified by Organization Details LastModified Time furosemide 40 mg tablet TAKE 1 TABLET BY MOUTH EVERY DAY 2023 active Not Available Not Available Not Avai lable spironolact one 100 mg tablet TAKE 1 TABLET BY MOUTH EVERY DAY 2023 active Not Available Not Available Not Avai lable testosteron e cypionate 200 mg/mL intramuscul ar oil Inject 1 mL every 3 weeks by intramusc ular route as directed for 42 days. 2023 active Not Available Not Available Not Avai lable BD Luer-Magda Syringe 3 mL 22 gauge x 1 active Not Available Not Available Not Available milk thistle active Not Available Not Available Not Available potassium acetate active Not Available Not Available Not Available amoxicillin 09/16 completed Not Available Not Available Not Available methadone taking 47 active Not Available Not Available Not Available Vitamin active Not Available Not Avail able Not Available sofosbuvir 400 mg-velpatas vir 100 mg tablet active Not Available Not Available Not Available Vitals Date Recorded Body height Body mass index (BMI) Body weight Respiratory rate Heart rate Systolic blood pressure Diastolic blood pressure Provider Name and Address Organization Details Last Updated DateTime 4 187.96 cm 41 kg/m2 010852. 97 g 16 /min 84 /min 154 mm[Hg] 84 mm[Hg] [facility] 15:40:16 Social History Question Answer Notes LastModified by Organizat ion Details LastModified Time Tobacco Smoking Status Former Smoker [facility] 09/08/2023 08:41:09 What Is Your Level Of Alcohol Consumption? Moderate [email or web address] Information not available 09/08/2023 Are You Currently Employed? Yes [email or web address] Information not available 09/08/2023 Do You Or Have You Ever Used E-cigarettes Or Vape? Current User Of Electronic Cigarettes [email or web address] Information not available 09/08/2023 What Is Your Occupation? [employer] [email or web address] Information not available 09/08/2023 When Did You Quit Smoking? 1-5yearssincel astcigarette [email or web address] Information not available 09/08/2023 What Was The Date Of Your Most Recent Tobacco Screening? 10/20/2023 [email or web address] Information not available 10/20/2023 What Is Your Current Pack Years? 30ormorepackye ars [email or web address] Information not available 09/08/2023 What Is Your Relationship Status? [email or web address] Information not available 09/08/2023 At What Age Did You Start Smoking Tobacco? 14 [email or web address] Information not available 09/08/2023 Do You Or Have You Ever Used Smokeless Tobacco? Never Used Smokeless Tobacco [email or web address] Information not available 09/08/2023 How Much Tobacco Do You Smoke? No Information not available 09/08/2023 Do You Use Any Illicit Or Recreational Drugs? No [email or web address] Information not available 09/08/2023 Has Tobacco Cessation Counseling Been Provided? No [email or web address] Information not available 09/08/2023 How Many Years Have You Smoked Tobacco? 15 [email or web address] Information not available 09/08/2023 Do You Or Have You Ever Used Any Other Forms Of Tobacco Or Nicotine? Yes Information not available 09/08/2023 Sex: Unknown Functional Status None recorded. Mental Status None recorded. Family History Relationship Description Onset Age of this Age Resolved Age Notes LastModified by Organization Details LastModified Time Unspecified Relation Alcoholism [email or web address] Not available 10/10 12:41:11 Unspecified Relation Myocardial infarction [email or web address] Not available 10/19 12:41:24 Unspecified Relation Heart disease [email or web address] Not available 2023 12:41:32 Unspecified Relation Hypertensive disorder [email or web address] Not available 2023 12:41:43 Unspecified Relation Disease of liver [email or web address] Not available 2023 12:41:54 Unspecified Relation Snoring [email or web address] Not available 024 12:42:06 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 Condition Response Acid Reflux (GERD) Y Sleep Disorder Y Hepatitis Y Past Encounters Encounter ID Performer Location Encounter Start Date Encounter Closed Date Diagnosis/Indication Diagnosis SNOMED-CT Code Diagnosis ICD10 Code [id number] LETITIA HICKS MD [facility] [address] [facility], [address] [place] [address] 02/17/2024 15:36:23 02/17/2024 15:56:17 Viral hepatitis C 56772047 B19.20 Cirrhosis of liver 007 K74.60 Non-alcoho lic fatty liver 610832383 K76.0 Peripheral edema 0931739 00 R60.9 Health Concerns Section Related Observation LastModified by Organization Detai ls LastModified Time None Recorded Concern Status LastModified by Organization Details LastModified Time None Recorded Payers Encounter Date Sequence Insurance Name Policy Number Policy King Covered Member ID King Member ID Guarantor Name 02/17/2024 1 [facility] (MEDICAID REPLACEMENT - HMO) Hunter Sharp [id number] Hunter Sharp Notes Date Note Type Note Provider Name and Address Organization Details Recorded Time 02/17/2024 text/html feels wellno etohmuch better after hcv treatmentgoing to gym LETITIA HICKS MD [address] [place], [address], [facility] 02/17/2024 15:54:29
--- OUTSIDE RECORDS SUMMARY | 2024-03-04 13:38 | XMS_ITS | Encounter Summary ---
Author Organization Healthcare Address [address] [place] [address] Care Team Providers Care Coreroom Foundry Laborer Name Role Phone Unavailable Primary Care Provider Unavailabl e Encounter Details Date Type Department Care Team (Late st Contact Info) Description 04/07/2013 Legacy AEHR Vitals Encounter [facility] OUTPATIENT CONVERSIONS [address] [place] [address] ProviderLiliya MD [address] [place], [place] [id number] Social History Tobacco Use Types Packs/Day Years [...] Weight 106 kg (233 lb 0.1 oz) 04/07/2013 11:32 A M EST Height 190.5 cm (6' 3 ) 04/07/2013 11:32 AM EST Body Mass Index 29.12 04/07/2013 11:32 AM EST documented in this encounter Plan of Treatment Upcoming Encounters Date Type Department Care Team (Late st Contact Info) Description 03/21/2024 7:45 AM EST Clinical Support [facility] [address] [place] [address] 03/21/2024 9:20 AM EST Office Visit [facility] [place] [address] [place] [address] Jean Greer MD [address] [place] [address] 03/21/2024 10:00 AM EST Office Visit [facility] [address] [place] [address] Surgeon, Transplant Liver documented as of this encounter Visit Diagnoses Not on filedocumented in this encounter
--- OUTSIDE RECORDS SUMMARY | 2024-03-04 13:38 | XMS_ITS | Encounter Summary ---
Author Organization Healthcare Address [address] [place] [address] Care Team Providers Care Dumpman Name Role Phone Bijan Mancera MD Unavailable [phone] Encounter Details Date Type Department Care Team (Late st Contact Info) Description 01/07/2023 Outside Procedure External Location [address] [place] [address] Provider, Jake [place] Social History Tobacco Use Types Packs/Day Years [...] Description 03/21/2024 7:45 AM EST Clinical Support [facility] [address] [place] [address] 03/21/2024 9:20 AM EST Office Visit [facility] [address] [place] [address] Jean Greer MD [address] [place] [address] 03/21/2024 10:00 AM EST Office Visit [facility] [place] [address] [place] [address] Surgeon, Transplant Liver documented as of this encounter Procedures Procedure Name Priority Date/Time Associated Diagnosis Comments XR CHEST 1 VIEW 01/07/2023 1:59 PM EDT documented in this encounter Results * XR Chest 1 View (01/07/2023 1:59 PM EDT) Anatomical Region Laterality Modality Chest Digital Radiogra phy 01/07/2023 1:59 PM EDT Narrative 01/07/2023 3:00 [place] [address] Name: KASEY BLOCK Exam Date: 01/07/2023 : 1990 Age 32 Gender: M Physician: OMI LOO Facility: [facility] Facility HSV: Outpatient Exam: CHEST PORTABLE PORTABLE CHEST HISTORY: Fever. Leg swelling. COMPARISON: 08/28/2022 FINDINGS: The heart and mediastinum are within normal limits. The lungs are clear without evidence of acute infiltrate or effusion. The bony structures are intact. IMPRESSION: No acute process. Films reviewed , interpreted and dictated by Transcribed by Connor Dougherty PA-C. Dictated By: ??JEAN MARIE DOMINGUEZ Transcribed By: Jean Marie Dominguez Transcribed On: 01/07/2023 2:47 PM Electronically signed by: JEAN MARIE DOMINGUEZ 01/07/2023 Thank you for referring KASEY BLOCK to [facility]. Legally authenticated by POPE JEAN MARIE Arango 2023-01-07 14:47:21 Procedure Note Provider, Generic [place] - 01/07/2023 [place] [address] Name: KASEY BLOCK Exam Date: 01/07/2023 : 1990 Age 32 Gender: M Physician: OMI LOO Facility: [facility] Facility HSV: Outpatient Exam: CHEST PORTABLE PORTABLE CHEST HISTORY: Fever. Leg swelling. COMPARISON: 08/28/2022 FINDINGS: The heart and mediastinum are within normal limits. The lungsare clear without evidence of acute infiltrate or effusion. The bonystructures are intact. IMPRESSION: No acute process. Films reviewed , interpreted and dictated by Transcribed by Connor Dougherty PA-C. Dictated By: JEAN MARIE DOMINGUEZ Transcribed By: Jean Marie Dominguez Transcribed On: 01/07/2023 2:47 PM Electronically signed by: JEAN MARIE DOMINGUEZ 01/07/2023 Thank you for referring KASEY BLOKC to [facility]. Legally authenticated by POPE JEAN MARIE Arango 2023-01-07 14:47:21 Generic [place] Provider IMG XR PROCEDURES Fi nal Result documented in this encounter Visit Diagnoses Not on filedocumented in this encounter Care Teams Dumpman Relationship Specialty Start Date End Date Bijan Mancera MD [address] [place] [address] Referring Physician Gastroenterology 02/23/24 documented as of this encounter
--- OUTSIDE RECORDS SUMMARY | 2024-03-04 13:38 | XMS_ITS | Encounter Summary ---
Author Organization Healthcare Address [address] [place] [address] Care Team Providers Care Major Account Manager Name Role Phone Bijan Mancera MD Unavailable [phone] Encounter Details Date Type Department Care Team (Late st Contact Info) Description 01/07/2023 Outside Procedure External Location [address] [place] [address] Provider, Jake [place] Social History Tobacco Use Types Packs/Day Years [...] Description 03/21/2024 7:45 AM EST Clinical Support [facility] [address] [place] [address] 03/21/2024 9:20 AM EST Office Visit [facility] [address] [place] [address] Jean Greer MD [address] [place] [address] 03/21/2024 10:00 AM EST Office Visit [facility] [place] [address] [place] [address] Surgeon, Transplant Liver documented as of this encounter Procedures Procedure Name Priority Date/Time Associated Diagnosis Comments VAS US VENOUS DUPLEX LOWER EXTREMITY UNILATERAL 01/07/2023 1:59 PM EDT documented in this encounter Results * VAS US Venous Duplex Lower Extremity Unilateral (01/07/2023 1:59 PM EDT) Anatomical Region Laterality Modality Lower Extremities Ultrasound 01/07/2023 1:59 PM EDT Narrative 01/07/2023 2:58 [place] [address] Name: KASEY BLOCK Exam Date: 01/07/2023 : 1990 Age 32 Gender: M Physician: OMI LOO Facility: [facility] Facility HSV: Outpatient Exam: VENOUS DUPLEX US LWR RT EXT DUPLEX VENOUS SONOGRAPHY OF THE RIGHT LOWER EXTREMITY HISTORY: Right leg pain and swelling Multiple transverse and longitudinal scans were performed of the femoropopliteal deep venous system, with augmentation and compression maneuvers. Normal phasic flow was noted in the visualized deep venous system. No intraluminal increased echogenicity is noted to suggest thrombus. There is normal compression and augmentation of the venous structures. No abnormal venous collaterals are seen. IMPRESSION: No evidence of deep venous thrombosis of the right lower extremity Films reviewed , interpreted and dictated by Transcribed by Connor Dougherty PA-C. Dictated By: ??JEAN MARIE DOMINGUEZ Transcribed By: Jean Marie Dominguez Transcribed On: 01/07/2023 2:46 PM Electronically signed by: JEAN MARIE DOMINGUEZ 01/07/2023 Thank you for referring KASEY BLOCK to [facility]. Legally authenticated by POPE JEAN MARIE Arango 2023-01-07 14:46:46 Procedure Note Provider, Jake [place] - 01/07/2023 [place] [address] Name: KASEY BLOCK Exam Date: 01/07/2023 : 1990 Age 32 Gender: M Physician: OMI LOO Facility: [facility] Facility HSV: Outpatient Exam: VENOUS DUPLEX US LWR RT EXT DUPLEX VENOUS SONOGRAPHY OF THE RIGHT LOWER EXTREMITY HISTORY: Right leg pain and swelling Multiple transverse and longitudinal scans were performed of the femoropopliteal deep venous system, with augmentation and compression maneuvers. Normal phasic flow was noted in the visualized deep venous system. No intraluminal increased echogenicity is noted to suggest thrombus. Thereis normal compression and augmentation of the venous structures. Noabnormal venous collaterals are seen. IMPRESSION: No evidence of deep venous thrombosis of the right lowerextremity Films reviewed , interpreted and dictated by Transcribed by Connor Dougherty PA-C. Dictated By: JEAN MARIE DOMINGUEZ Transcribed By: Jean Marie Dominguez Transcribed On: 01/07/2023 2:46 PM Electronically signed by: JEAN MARIE DOMINGUEZ 01/07/2023 Thank you for referring KASEY BLOCK to [facility]. Legally authenticated by POPE JEAN MARIE Arango 2023-01-07 14:46:46 us Generic [place] Provider CV VASCULAR PROCEDUR ES Final Result documented in this encounter Visit Diagnoses Not on filedocumented in this encounter Care Teams Major Account Manager Relationship Specialty Start Date End Date Bijan Mancera MD [address] [place] [address] Referring Physician Gastroenterology 02/23/24 documented as of this encounter
--- OUTSIDE RECORDS SUMMARY | 2024-03-04 13:38 | XMS_ITS ---
Author Organization Healthcare Address [address] [place] [address] Care Team Providers Care Family Practice Doctor Name Role Phone Bijan Mancera MD Unavailable [phone] Transplant Episode Liver Candidate [facility] ([place], [place]) - [facility] Referred on 02/23/2024 Marked as Active on 02/23/2024 Liver CoordinatorReyossi Fonseca Phone: N/A Fax: N/A Email: N/A Scores Score Value Updated Expires Exceptions/[place] sons CPRA Not available UNOS MELD Not available MELD (Calc) 8 01/19/2024 Care Team Name Role Phone Fax Email Connie Fonseca Liver Coordinator N/A N/A N/ A Trina Davis Test Carrier [phone] N/A N/A Morteza Etienne MD Surgeon [phone] N/A Bijan Mancera MD Referring Physician [phone] N/A Events Pre-Transplant Referred: 02/23/2024 Appointments (02/02/2024 - 04/03/2024) When With Visit Type Description 03/21/2024 Transplant - Surgeon, T Initial Clinic Evaluation 03/21/2024 Transplant LAB 03/21/2024 Transplant - Christopher Greer Initial Clinic Evaluation
--- OUTSIDE RECORDS SUMMARY | 2024-03-04 13:38 | XMS_ITS | Continuity of Care Document ---
Author Organization [facility] Clini c, ENDOCRINOLOGY SB Address [address] [place] [address] Care Team Providers Care Notching Machine Operator Name Role Phone MICKEY TAPIAN Referring Provider [phone] Assessment No assessment recorded. Plan of Treatment Reminders Order Date Submit Date Provider Last Modified By Organization Details Last Modified Time Details Appointments ULTRASO UND 2024 08:00A M ULTRASOUND Not available Not available Not available RECHECK 2024 03:20P M LETITIA HICKS MD Not available Not available Not available RECHECK 2024 10:30A M JUSTA US MD Not available Not available Not available Lab testost erone, total, serum 2023 024 [facility], [address] [place] [address], [phone], 01/10/2024 19:50:00 CBC w/ auto diff 2023 024 [facility], [address] [place] [address], [phone], 01/10/2024 19:12:34 Referral None recorde d. Procedures None recorde d. Surgeries None recorde d. Imaging None recorde d. Medication Orders testost erone cypiona te 200 mg/mL intramu scular oil 2023 024 [id number], [address] [place], [address], 12/31/2023 12:19:07 Patient TargetsNo targets recorded. Patient InstructionsNo instructions [...] height Body mass index (BMI) Body weight Heart rate Systolic blood pressure Diastolic blood pressure Provider Name and Address Organization Details Last Updated DateTime 4 187.96 cm 42.8 kg/m2 225715. 26 g 88 /min 138 mm[Hg] 70 mm[Hg] Mena Mukherjee [facility] 4 11:03:13 Social History Question Answer Notes LastModified by Organizat ion Details LastModified Time Tobacco Smoking Status Former Smoker Palmira [facility] 09/08/2023 08:41:09 What Is Your Level Of Alcohol Consumption? Moderate [email or web address] Information not available 09/08/2023 Are You Currently Employed? Yes [email or web address] Information not available 09/08/2023 Do You Or Have You Ever Used E-cigarettes Or Vape? Current User Of Electronic Cigarettes [email or web address] Information not available 09/08/2023 What Is Your Occupation? [employer] [email or web address] Information not available 09/08/2023 When Did You Quit Smoking? 1-5yearssincel rekha [email or web address] Information not available 09/08/2023 What Was The Date Of Your Most Recent Tobacco Screening? 10/20/2023 [email or web address] Information not available 10/20/2023 What Is Your Current Pack Years? 30ormorepackye ars [email or web address] Information not available 09/08/2023 What Is Your Relationship Status? [email or web address] Information not available 09/08/2023 At What Age Did You Start Smoking Tobacco? 14 [email or web address] Information not available 09/08/2023 Do You Or Have You Ever Used Smokeless Tobacco? Never Used Smokeless Tobacco [email or web address] Information not available 09/08/2023 How Much Tobacco Do You Smoke? No Information not available 09/08/2023 Do You Use Any Illicit Or Recreational Drugs? No [email or web address] Information not available 09/08/2023 Has Tobacco Cessation Counseling Been Provided? No [email or web address] Information not available 09/08/2023 How Many Years Have You Smoked Tobacco? 15 [email or web address] Information not available 09/08/2023 Do You Or Have You Ever Used Any Other Forms Of Tobacco Or Nicotine? Yes [email or web address] Information not available 09/08/2023 Sex: Unknown Functional [...] available 024 12:42:06 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 Condition Response Hepatitis Y Acid Reflux (GERD) Y Sleep Disorder Y Past Encounters Encounter ID Performer Location Encounter Start Date Encounter Closed Date Diagnosis/Indication Diagnosis SNOMED-CT Code Diagnosis ICD10 Code [id number] JUSTA US MD [facility] [address] [address] [place] [address] 12/31/2023 10:54:11 01/01/2024 04:21:08 Male hypogonadism 21422088 E29.1 Health Concerns Section Related Observation LastModified by Organization Detai ls LastModified Time None Recorded Concern Status LastModified by Organization Details LastModified Time None Recorded Payers Encounter Date Sequence Insurance Name Policy Number Policy King Covered Member ID King Member ID Guarantor Name 12/31/2023 1 [facility] (MEDICAID REPLACEMENT - HMO) Hunter De Guzman [id number] Hunter De Guzman Notes Date Note Type Note Provider Name and Address Organization Details Recorded Time 12/31/2023 text/html 33-year-old Cauc male patient with a past medical history as detailed in the problem is significant for morbid obesity, 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 Last office visit on 10/01/2023Initially seen on 09/17/2023History of heroin addiction and currently on maintenance methadoneReported the following symptomsFatigue lack of energyLow libidoErectile dysfunctionLoss of muscle massHe denies any previous history of venous thromboembolism.New history of coronary artery diseaseDenies any obstructive urinary symptomsLaboratory workup was consistent with severe hypogonadotrophic hypogonadism Started on testosterone cypionate and he currently takes 200 mg intramuscular every 2 weeksLast dose 10 days ago Reported partially improved symptoms i.e. less fatigued more libido but is still symptomatic.He denies any obstructive urinary symptoms He denies any recent blood clots or coronary artery disease or heart attacks while on testosterone placement JUSTA US MD [address] [place] [address], [phone], [facility] 12/31/2023 12:19:19
--- OUTSIDE RECORDS SUMMARY | 2024-03-04 13:38 | XMS_ITS | Encounter Summary ---
Author Organization Healthcare Address [address] [place] [address] Care Team Providers Care Wire Tinner Name Role Phone Unavailable Primary Care Provider Unavailabl e Encounter Details Date Type Department Care Team (Late Contact Info) Description 08/28/2022 Orders Only External Location [address] [place] [address] Provider, [facility] Social History Tobacco Use Types Packs/Day Years [...] Encounters Date Type Department Care Team (Late Contact Info) Description 03/21/2024 7:45 AM EST Clinical Support [facility] [address] [place] [address] 03/21/2024 9:20 AM EST Office Visit [facility] [address] [place] [address] Jean Greer MD [address] [place] [address] 03/21/2024 10:00 AM EST Office Visit [facility] [address] [place] [address] Surgeon, Transplant Liver documented as of this encounter Procedures Procedure Name Priority Date/Time Associated Diagnosis Comments URINE CULTURE Routine 01/07/2023 5:22 PM EDT BLOOD CULTURE (AEROBIC/ANAEROBIC SET) Routine 01/07/2023 2:43 PM EDT PROCALCITONIN, PLASMA Routine 01/07/2023 2:15 PM EDT BLOOD CULTURE (AEROBIC/ANAEROBIC SET) Routine 01/07/2023 2:15 PM EDT CBC WITH AUTO DIFFERENTIAL Routine 01/07/2023 2:15 PM EDT LACTIC ACID, PLASMA Routine 01/07/2023 2 :15 PM EDT COMPREHENSIVE METABOLIC PANEL, PLASMA Routine 01/07/2023 2:15 PM EDT NASOPHARYNGEAL RESPIRATORY PANEL Routine 01/07/2023 2:07 PM EDT BLOOD CULTURE (AEROBIC/ANAEROBIC SET) Routine 08/28/2022 3:06 AM EDT URINE CULTURE Routine 08/28/2022 2:40 AM EDT NASOPHARYNGEAL RESPIRATORY PANEL Routine 08/28/2022 2:04 AM EDT LACTIC ACID, PLASMA Routine 08/28/2022 2 :04 AM EDT BLOOD CULTURE (AEROBIC/ANAEROBIC SET) Routine 08/28/2022 1:58 AM EDT PROCALCITONIN, PLASMA Routine 08/28/2022 1:08 AM EDT APTT Routine 08/28/2022 1:08 AM EDT PROTHROMBIN TIME(PT) / INR Routine 08/28/2022 1:08 AM EDT CBC WITH AUTO DIFFERENTIAL Routine 08/28/2022 1:08 AM EDT COMPREHENSIVE METABOLIC PANEL, PLASMA Routine 08/28/2022 1:08 AM EDT documented in this encounter Results * Urine Culture (01/07/2023 5:22 PM EDT) External Comments KR1 ??2022-12-12 9 ??921 ??NO GROWTH 24 HOURS KR1 ??2022-12-13 0 ??837 ??NO GROWTH 48 HOURS [facility] 01/07/2023 5:22 PM EDT 01/08/2023 9:21 AM EDT Generic [facility] Provider LAB MICROBIOLOGY - G ENERAL ORDERABLES Final Result Performing Organization Address [facility] Co de Phone Number [facility] * Blood Culture (Aerobic/Anaerobet Set) (01/07/2023 2:43 PM EDT) External Comments KR1 ??2022-12-13 0 ??807 ??NO GROWTH 24 HOURS KB2 ??0 2 ??635 ??NO GROWTH 48 HOURS KB2 ??0 2 ??637 ??NO GROWTH AT 72 HOURS KB2 ?? 4 ??639 ??No growth 5 days [facility] 01/07/2023 2:43 PM EDT 01/07/2023 2:52 PM EDT Generic [facility] Provider LAB MICROBIOLOGY - G ENERAL ORDERABLES Final Result Performing Organization Address [facility] Co de Phone Number [facility] * (ABNORMAL) CBC and Differential (01/07/2023 2:15 PM EDT) External WBC 8.4 4.0 - 10.5 K/ul [facility] External Red Blood Cell (RBC) 5.2 4.7 - 6.1 M/mm3 [facility] External Hemoglobin 14.9 13.5 - 18.0 gm/dl [facility] External Hematocrit 44.3 42.0 - 52.0 % [facility] External MCV 85.2 78 - 100 fl [facility] External MCH 28.7 27 - 31 pg [facility] External MCHC 33.6 32 - 36 g/dl [facility] External RDW 13.6 11.5 - 14.0 % [facility] External Platelets 54(L) 150 - 450 K/ul [facility] External MPV 10.1(H) 6 - 9.5 fl [facility] External Neutrophils % 66.1(H) 43 - 65 % [facility] External Lymphocyte % 27.6 20.5 - 45.5 % [facility] External Monocyte % 5.4(L) 5.5 - 11.7 % [facility] External Eosinophil% 0.1(L) 0.9 - 2.9 % [facility] External Basophil % 0.4 0.2 - 1.0 % [facility] External Immature Granulocyte% 0.4 0.0 - 0.8 % [facility] External Nucleated RBC % 0.0 % [facility] External Neutrophil# 5.6(H) 2.2 - 4.8 K/uL [facility] External Lymphocyte# 2.3 1.3 - 2.9 [facility] External Monocyte# 0.5 0.3 - 0.8 [facility] External Eosinophils# 0.0 0 - 0.2 [facility] External Baso# 0.0 0.0 - 1.0 [facility] External Immature Granulocyte Abs 0.03 K/ul [facility] External Nucleated RBC Absolute 0.00 K/uL [facility] External Manual Differential NO [facility] 01/07/2023 2:15 PM EDT 01/07/2023 2:21 PM EDT us Generic [facility] Provider LAB BLOOD ORDERABLES Final Result Performing Organization Address [facility] de Phone Number [facility] * Blood Culture (Aerobic/Anaerobet Set) (01/07/2023 2:15 PM EDT) External Comments KR1 ??2022-12-13 0 ??807 ??NO GROWTH 24 HOURS KB2 ?? 2 ??635 ??NO GROWTH 48 HOURS KB2 ?? 2 ??637 ??NO GROWTH AT 72 HOURS KB2 ?? 4 ??639 ??No growth 5 days [facility] Peripheral blood 01/07/2023 2:15 PM EDT 01/07/2023 2:22 PM EDT us [facility] Provider LAB MICROBIOLOGY - G ENERAL ORDERABLES Final Result Performing Organization Address [facility] de Phone Number [facility] * Procalcitonin, Plasma (01/07/2023 2:15 PM EDT) Pathologist [facility] External Procalcitonin 0.46 0.00 - 0.5 ng/mL [facility] Comment: ?PCT </= 0.5 ng/mL : Low risk for progression to severe ?systemic infection (severe sepsis/septic ?shock). ?CAUTION: PCT levels below 0.5 ng/mL do not ?exclude an infection, because localized ?infections (without systemic signs) may be ?associated with such low levels. ?If PCT is measured very early after a ?bacterial challenge (usually <6 hours), ?these values may sill be low. ??In this ?case, PCT should be re-assessed 6-24 hours ?later. ?PCT >0.5 to </=2 ng/mL : Moderate risk for progression to ? severe systemic infection (severe ? sepsis/septic shock). ? This patient should be closely ? monitored both clinically and by ? re-assessing PCT within 6-24 hours. ?PCT > 2 ng/mL : ?High risk of progression to severe ? systemic infection (severe sepsis/ ? septic shock). ?PCT >/= 10 ng/mL : ? High likelihood of severe spesis ? or septic shock. 01/07/2023 2:15 PM EDT 01/07/2023 2:21 PM EDT us Generic [facility] Provider LAB BLOOD ORDERABLES Final Result [facility] * (ABNORMAL) Comprehensive Metabolic Panel, Plasma (01/07/2023 2:15 PM EDT) External Sodium 138 136 - 145 mmol/L [facility] External Potassium 3.7 3.6 - 5.0 mmol/L [facility] External Chloride 105 98 - 107 mmol/L [facility] External Carbon Dioxide 24.3 21.0 - 32.0 mmol/L [facility] External Anion Gap (AG) 12.4 [facility] External Glucose 126(H) 70 - 120 mg/dl [facility] External BUN 15 7 - 18 mg/dL [facility] External Creatinine Blood 0.7 0.6 - 1.3 mg/dL [facility] External Estimated GFR >60 60- mlpermin [facility] External Total Protein 7.3 6.4 - 8.2 g/dl [facility] External Albumin 3.0(L) 3.4 - 5.0 g/dl [facility] External Globulin 4.3 [facility] External Albumin/Globuli n Ratio 0.7 0.7 - 2 [facility] External Calcium 8.2(L) 8.5 - 10.5 mg/dl [facility] External Bilirubin Total 1.00 0.10 - 1.00 mg/dL [facility] External AST (SGOT) 96(H) 0 - 37 U/L [facility] External ALT (SGPT) 124(H) 0 - 65 U/L [facility] External Alkaline Phosphatase 106 46 - 116 U/L [facility] 01/07/2023 2:15 PM EDT 01/07/2023 2:21 PM EDT Generic [facility] Provider LAB BLOOD ORDERABLES Final Result Performing Organization Address [facility]/ZIP Co de Phone Number [facility] * Lactic Acid, Plasma (01/07/2023 2:15 PM EDT) External Lactic Acid 1.1 0.4 - 2.0 mmol/L [facility] 01/07/2023 2:15 PM EDT 01/07/2023 2:21 PM EDT Generic [facility] Provider LAB BLOOD ORDERABLES Final Result Performing Organization Address [facility] Co de Phone Number [facility] * Nasopharyngeal Respiratory Panel (01/07/2023 2:07 PM EDT) Pathologist [facility] External Adenovirus NOT DETECTED NOT DETECTED [facility] Comment: *Test Methodology: CellabusArray Respiratory Panel Melting curve analysis, PCR, multiplex, reverse transcriptase (RT) *Limitations: The detection of viral and bacterial nucleic acid is dependent upon proper specimen collection, handling, transportation storage and preparation. Failure to observe proper procedures in any of these steps can lead to incorrect results. Viral and bacterial nucleic acids may persist in vivo independent of organism viablility. ??Detection of organism target(s) does not imply that the corresponding organisms are infectious or are the causative agents for clinical symptoms. External Bordetella parapertussis NOT DETECTED NOT DETECTED [facility] Comment: *Test Methodology: BioFire FilmArray Respiratory Panel Melting curve analysis, PCR, multiplex, reverse transcriptase (RT) *Limitations: The detection of viral and bacterial nucleic acid is dependent upon proper specimen collection, handling, transportation storage and preparation. Failure to observe proper procedures in any of these steps can lead to incorrect results. Viral and bacterial nucleic acids may persist in vivo independent of organism viablility. ??Detection of organism target(s) does not imply that the corresponding organisms are infectious or are the causative agents for clinical symptoms. External Coronavirus 229E NOT DETECTED NOT DETECTED [facility] External Coronavirus HKU1 NOT DETECTED NOT DETECTED [facility] External Coronavirus NL63 NOT DETECTED NOT DETECTED [facility] External Coronavirus OC43 NOT DETECTED NOT DETECTED [facility] External Human Metapneumovirus NOT DETECTED NOT DETECTED [facility] External Human Rhinovirus/Enterov irus NOT DETECTED NOT DETECTED [facility] Comment: *The FilmArray RP cannot reliably differentiate between Human Rhinovirus and Enterovirus, due to the genetic similarity. External Influenza A NOT DETECTED NOT DETECTED [facility] External Influenza A H1 N/A NOT DETECTED [facility] External Influenza A H1-2009 N/A NOT DETECTED [facility] External Rapid Influenza A Antigen N/A NOT DETECTED [facility] External Rapid Influenza B Antigen NOT DETECTED NOT DETECTED [facility] Comment: *Recent administration of a nasal influenza vaccine may cause false positive results for Influenza A and/or Influenza B. External Parainfluenza 1 NOT DETECTED NOT DETECTED [facility] External Parainfluenza 2 NOT DETECTED NOT DETECTED [facility] External Parainfluenza 3 NOT DETECTED NOT DETECTED [facility] External Parainfluenza 4 NOT DETECTED NOT DETECTED [facility] External Respiratory Syncytial Virus NOT DETECTED NOT DETECTED [facility] External Bordetella pertussis NOT DETECTED NOT DETECTED [facility] External Chlamydia pneumoniae NOT DETECTED NOT DETECTED [facility] External Mycoplasma pneumoniae NOT DETECTED NOT DETECTED [facility] External SARS COV 2 NOT DETECTED NOT DETECTED [facility] Comment: *Test Methodology: CellabusArray Respiratory Panel Melting curve analysis, PCR, multiplex, reverse transcriptase (RT) *Limitations: The detection of viral and bacterial nucleic acid is dependent upon proper specimen collection, handling, transportation storage and preparation. Failure to observe proper procedures in any of these steps can lead to incorrect results. Viral and bacterial nucleic acids may persist in vivo independent of organism viablility. ??Detection of organism target(s) does not imply that the corresponding organisms are infectious or are the causative agents for clinical symptoms. 01/07/2023 2:07 PM EDT 01/07/2023 2:12 PM EDT [facility] Provider LAB MICROBIOLOGY - G ENERAL ORDERABLES Final Result [facility] * Blood Culture (Aerobic/Anaerobet Set) (08/28/2022 3:06 AM EDT) External Comments KR1 ??2022-08-11 0 ??758 ??NO GROWTH 24 HOURS LF ??2022-08-11 2 ??734 ??NO GROWTH 48 HOURS LF ??2022-08-11 2 ??735 ??NO GROWTH AT 72 HOURS LF ??2022-08-11 4 ??712 ??No growth 5 days [facility] 08/28/2022 3:06 AM EDT 08/28/2022 3:06 AM EDT [facility] Provider LAB MICROBIOLOGY - G ENERAL ORDERABLES Final Result Performing Organization Address [facility] de Phone Number [facility] * Urine Culture (08/28/2022 2:40 AM EDT) External Comments KR1 ??2022-08-11 0 ??833 ??NO GROWTH 24 HOURS KR1 ??2022-08-11 1 ??1728 ??NO GROWTH 48 HOURS [facility] 08/28/2022 2:40 AM EDT 08/28/2022 2:40 AM EDT [facility] Provider LAB MICROBIOLOGY - G ENERAL ORDERABLES Final Result Performing Organization Address [facility] de Phone Number [facility] * Nasopharyngeal Respiratory Panel (08/28/2022 2:04 AM EDT) External Adenovirus NOT DETECTED NOT DETECTED [facility] Comment: *Test Methodology: CellabusArray Respiratory Panel Melting curve analysis, PCR, multiplex, reverse transcriptase (RT) *Limitations: The detection of viral and bacterial nucleic acid is dependent upon proper specimen collection, handling, transportation storage and preparation. Failure to observe proper procedures in any of these steps can lead to incorrect results. Viral and bacterial nucleic acids may persist in vivo independent of organism viablility. ??Detection of organism target(s) does not imply that the corresponding organisms are infectious or are the causative agents for clinical symptoms. External Bordetella parapertussis NOT DETECTED NOT DETECTED [facility] Comment: *Test Methodology: CellabusArray Respiratory Panel Melting curve analysis, PCR, multiplex, reverse transcriptase (RT) *Limitations: The detection of viral and bacterial nucleic acid is dependent upon proper specimen collection, handling, transportation storage and preparation. Failure to observe proper procedures in any of these steps can lead to incorrect results. Viral and bacterial nucleic acids may persist in vivo independent of organism viablility. ??Detection of organism target(s) does not imply that the corresponding organisms are infectious or are the causative agents for clinical symptoms. External Coronavirus 229E NOT DETECTED NOT DETECTED [facility] External Coronavirus HKU1 NOT DETECTED NOT DETECTED [facility] External Coronavirus NL63 NOT DETECTED NOT DETECTED [facility] External Coronavirus OC43 NOT DETECTED NOT DETECTED [facility] External Human Metapneumovirus NOT DETECTED NOT DETECTED [facility] External Human Rhinovirus/Enterov irus NOT DETECTED NOT DETECTED [facility] Comment: *The FilmArray RP cannot reliably differentiate between Human Rhinovirus and Enterovirus, due to the genetic similarity. External Influenza A NOT DETECTED NOT DETECTED [facility] External Influenza A H1 N/A NOT DETECTED [facility] External Influenza A H1-2009 N/A NOT DETECTED [facility] External Rapid Influenza A Antigen N/A NOT DETECTED [facility] External Rapid Influenza B Antigen NOT DETECTED NOT DETECTED [facility] Comment: *Recent administration of a nasal influenza vaccine may cause false positive results for Influenza A and/or Influenza B. External Parainfluenza 1 NOT DETECTED NOT DETECTED [facility] External Parainfluenza 2 NOT DETECTED NOT DETECTED [facility] External Parainfluenza 3 NOT DETECTED NOT DETECTED [facility] External Parainfluenza 4 NOT DETECTED NOT DETECTED [facility] External Respiratory Syncytial Virus NOT DETECTED NOT DETECTED [facility] External Bordetella pertussis NOT DETECTED NOT DETECTED [facility] External Chlamydia pneumoniae NOT DETECTED NOT DETECTED [facility] External Mycoplasma pneumoniae NOT DETECTED NOT DETECTED [facility] External SARS COV 2 NOT DETECTED NOT DETECTED [facility] Comment: *Test Methodology: CellabusArray Respiratory Panel Melting curve analysis, PCR, multiplex, reverse transcriptase (RT) *Limitations: The detection of viral and bacterial nucleic acid is dependent upon proper specimen collection, handling, transportation storage and preparation. Failure to observe proper procedures in any of these steps can lead to incorrect results. Viral and bacterial nucleic acids may persist in vivo independent of organism viablility. ??Detection of organism target(s) does not imply that the corresponding organisms are infectious or are the causative agents for clinical symptoms. 08/28/2022 2:04 AM EDT 08/28/2022 2:[address] [facility] LAB MICROBIOLOGY - G ENERAL ORDERABLES Final Result Performing Organization Address [facility] Co de Phone Number [facility] * Lactic Acid, Plasma (08/28/2022 2:04 AM EDT) External Lactic Acid 1.1 0.4 - 2.0 mmol/L [facility] 08/28/2022 2:04 AM EDT 08/28/2022 2:[address] [facility] LAB BLOOD ORDERABLES Final Result Performing Organization Address [facility]/ZIP Co de Phone Number [facility] * Blood Culture (Aerobic/Anaerobet Set) (08/28/2022 1:58 AM EDT) External Comments KR1 ??2022-08-11 0 ??758 ??NO GROWTH 24 HOURS LF ??2022-08-11 2 ??734 ??NO GROWTH 48 HOURS LF ??2022-08-11 2 ??735 ??NO GROWTH AT 72 HOURS LF ??2022-08-11 4 ??712 ??No growth 5 days [facility] Peripheral blood 08/28/2022 1:58 AM EDT 08/28/2022 2:05 AM EDT us Generic [facility] Provider LAB MICROBIOLOGY - G ENERAL ORDERABLES Final Result [facility] * Procalcitonin, Plasma (08/28/2022 1:08 AM EDT) External Procalcitonin 0.15 0.00 - 0.5 ng/mL [facility] Comment: ?PCT </= 0.5 ng/mL : Low risk for progression to severe ?systemic infection (severe sepsis/septic ?shock). ?CAUTION: PCT levels below 0.5 ng/mL do not ?exclude an infection, because localized ?infections (without systemic signs) may be ?associated with such low levels. ?If PCT is measured very early after a ?bacterial challenge (usually <6 hours), ?these values may sill be low. ??In this ?case, PCT should be re-assessed 6-24 hours ?later. ?PCT >0.5 to </=2 ng/mL : Moderate risk for progression to ? severe systemic infection (severe ? sepsis/septic shock). ? This patient should be closely ? monitored both clinically and by ? re-assessing PCT within 6-24 hours. ?PCT > 2 ng/mL : ?High risk of progression to severe ? systemic infection (severe sepsis/ ? septic shock). ?PCT >/= 10 ng/mL : ? High likelihood of severe spesis ? or septic shock. 08/28/2022 1:08 AM EDT 08/28/2022 1:44 AM EDT us Generic [facility] Provider LAB BLOOD ORDERABLES Final Result [facility] * (ABNORMAL) Comprehensive Metabolic Panel, Plasma (08/28/2022 1:08 AM EDT) External Sodium 139 136 - 145 mmol/L [facility] External Potassium 4.0 3.6 - 5.0 mmol/L [facility] External Chloride 105 98 - 107 mmol/L [facility] External Carbon Dioxide 27.8 21.0 - 32.0 mmol/L [facility] External Anion Gap (AG) 10.2 [facility] External Glucose 81 70 - 120 mg/dl [facility] External BUN 19(H) 7 - 18 mg/dL [facility] External Creatinine Blood 0.9 0.6 - 1.3 mg/dL [facility] External Estimated GFR >60 60- mlpermin [facility] External Total Protein 7.6 6.4 - 8.2 g/dl [facility] External Albumin 3.8 3.4 - 5.0 g/dl [facility] External Globulin 3.8 [facility] External Albumin/Globuli n Ratio 1.0 0.7 - 2 [facility] External Calcium 9.3 8.5 - 10.5 mg/dl [facility] External Bilirubin Total 0.70 0.10 - 1.00 mg/dL [facility] External AST (SGOT) 114(H) 0 - 37 U/L [facility] External ALT (SGPT) 154(H) 0 - 65 U/L [facility] External Alkaline Phosphatase 99 46 - 116 U/L [facility] 08/28/2022 1:08 AM EDT 08/28/2022 1:44 AM EDT Generic [facility] Provider LAB BLOOD ORDERABLES Final Result [facility] * APTT (08/28/2022 1:08 AM EDT) External Partial Thromboplastin Time (PTT) 27.9 24.5 - 32.8 SECONDS [facility] 08/28/2022 1:08 AM EDT 08/28/2022 1:44 AM EDT Generic [facility] Provider LAB BLOOD ORDERABLES Final Result [facility] * Prothrombin Time/INR (08/28/2022 1:08 AM EDT) [facility] External Prothrombin Time (PT) 10.8 9.3 - 11.4 SECONDS [facility] External INR - Internormal Ratio 1.0 0.97 - 1.05 Ratio [facility] Comment: ? INR is intended to be used ONLY for patients on stable ? oral anticoagulant therapy. ??Therapeutic Ranges: ?2.0-3.0 ?? Usual Therapeutic Range ?2.5-3.5 ?? For patients with history of Multiple Deep ?Vein Thrombus or Mechanical Heart Valves 08/28/2022 1:08 AM EDT 08/28/2022 1:44 AM EDT us Generic [place] Provider LAB BLOOD ORDERABLES Final Result [facility] * (ABNORMAL) CBC and Differential (08/28/2022 1:08 AM EDT) [facility] External WBC 9.6 4.0 - 10.5 K/ul [facility] External Red Blood Cell (RBC) 5.3 4.7 - 6.1 M/mm3 [facility] External Hemoglobin 15.4 13.5 - 18.0 gm/dl [facility] External Hematocrit 44.4 42.0 - 52.0 % [facility] External MCV 84.4 78 - 100 fl [facility] External MCH 29.3 27 - 31 pg [facility] External MCHC 34.7 32 - 36 g/dl [facility] External RDW 14.4(H) 11.5 - 14.0 % [facility] External Platelets 68(L) 150 - 450 K/ul [facility] External Neutrophils % 76.7(H) 43 - 65 % [facility] External Lymphocyte % 16.8(L) 20.5 - 45.5 % [facility] External Monocyte % 6.1 5.5 - 11.7 % [facility] External Eosinophil% 0.2(L) 0.9 - 2.9 % [facility] External Basophil % 0.2 0.2 - 1.0 % [facility] External Neutrophil# 7.4(H) 2.2 - 4.8 K/uL [facility] External Lymphocyte# 1.6 1.3 - 2.9 CELL/MCL [facility] External Monocyte# 0.6 0.3 - 0.8 CELL/[facility] External Eosinophils# 0.0 0 - 0.2 CELL/[facility] External Baso# 0.0 0.0 - 1.0 CELL/[facility] External Manual Differential NO [facility] 08/28/2022 1:08 AM EDT 08/28/2022 1:44 AM EDT us Generic [place] Provider LAB BLOOD ORDERABLES Final Result [facility] documented in this encounter Visit Diagnoses Not on filedocumented in this encounter
--- OUTSIDE RECORDS SUMMARY | 2024-03-04 13:38 | XMS_ITS | Encounter Summary ---
Author Organization Healthcare Address [address] [place] [address] Care Team Providers Care Accelerator Operator Name Role Phone Unavailable Primary Care Provider Unavailabl e Encounter Details Date Type Department Care Team (Late Contact Info) Description 03/31/2013 Legacy [facility] Vitals Encounter [facility] [address] [place] [address] ProviderLiliya MD [address] [place], [place] [id number] Social History Tobacco Use Types Packs/Day Years [...] Weight 106 kg (233 lb 0.1 oz) 03/31/2013 12:51 P M EST Height 190.5 cm (6' 3 ) 03/31/2013 12:51 PM EST Body Mass Index 29.12 03/31/2013 12:51 PM EST documented in this encounter Plan of Treatment Upcoming Encounters Date Type Department Care Team (Late st Contact Info) Description 03/21/2024 7:45 AM EST Clinical [address] [facility] [address] [place] [address] 03/21/2024 9:20 AM EST Office Visit [facility] [place] [address] [place] [address] Jean Greer MD [address] [place] [address] 03/21/2024 10:00 AM EST Office Visit [facility] [address] [place] [address] Surgeon, Transplant Liver documented as of this encounter Visit Diagnoses Not on filedocumented in this encounter
--- OUTSIDE RECORDS SUMMARY | 2024-03-04 13:38 | XMS_ITS | Encounter Summary ---
Author Organization Healthcare Address [address] [place] [address] Care Team Providers Care Credit Office Manager Name Role Phone Unavailable Primary Care Provider Unavailabl e Encounter Details Date Type Department Care Team (Late Contact Info) Description 09/15/2020 Abstract [facility] [address] [place] [address] Dental, Provider, [place] [address] Social History Tobacco Use Types Packs/Day Years [...] Description 03/21/2024 7:45 AM EST Clinical Support [facility] [address] [place] [address] 03/21/2024 9:20 AM EST Office Visit [facility] [place] [address] [place] [address] Jean Greer MD [address] [place] [address] 03/21/2024 10:00 AM EST Office Visit [facility] [place] [address] [place] [address] Surgeon, Transplant Liver documented as of this encounter Procedures Procedure Name Priority Date/Time Associated Diagnosis Comments FOLLOW-UP EXAM (N/C) Routine 09/08/2017 12:00 AM EDT FOLLOW-UP EXAM (N/C) Routine 09/08/2017 12:00 AM EDT FOLLOW-UP EXAM (N/C) Routine 09/01/2017 12:00 AM EDT 26 EXTRACTION Routine 08/31/2017 12:00 AM EDT 25 EXTRACTION Routine 08/31/2017 12:00 AM EDT 24 EXTRACTION Routine 08/31/2017 12:00 AM EDT 20 EXTRACTION Routine 08/31/2017 12:00 AM EDT 13 EXTRACTION Routine 08/31/2017 12:00 AM EDT 12 EXTRACTION Routine 08/31/2017 12:00 AM EDT 11 EXTRACTION Routine 08/31/2017 12:00 AM EDT 10 EXTRACTION Routine 08/31/2017 12:00 AM EDT 9 EXTRACTION Routine 08/31/2017 12:00 AM EDT 8 EXTRACTION Routine 08/31/2017 12:00 AM EDT 7 EXTRACTION Routine 08/31/2017 12:00 AM EDT 6 EXTRACTION Routine 08/31/2017 12:00 AM EDT 5 EXTRACTION Routine 08/31/2017 12:00 AM EDT 4 EXTRACTION Routine 08/31/2017 12:00 AM EDT 3 EXTRACTION Routine 08/31/2017 12:00 AM EDT 14 EXTRACTION Routine 08/31/2017 12:00 AM EDT 2 EXTRACTION Routine 08/31/2017 12:00 AM EDT DEEP SEDATION/GENERAL ANESTHESIA - EACH SUBSEQUENT 15 MINUTE INCREMENT Routine 08/31/2017 12:00 AM EDT ALVEOLOPLASTY IN CONJUNCTION WITH EXTRACTIONS - 4 OR MORE TEETH OR TOOTH SPACES, PER QUADRANT Routine 08/31/2017 12:00 AM EDT ALVEOLOPLASTY IN CONJUNCTION WITH EXTRACTIONS - 4 OR MORE TEETH OR TOOTH SPACES, PER QUADRANT Routine 08/31/2017 12:00 AM EDT COMPREHENSIVE ORAL EVALUATION - NEW OR ESTABLISHED PATIENT IN PROCESS A Routine 12/25/2016 12:00 AM EDT PANORAMIC RADIOGRAPHIC IMAGE IN PROCESS A Routine 11/20/2016 12:00 AM EDT ADULT SCREENING Routine 01/21/2016 12:00 AM EDT documented in this encounter Visit Diagnoses Not on filedocumented in this encounter
--- OUTSIDE RECORDS SUMMARY | 2024-03-04 13:38 | XMS_ITS | Encounter Summary ---
Author Organization Healthcare Address [address] [place] [address] Care Team Providers Care Boat Painter Name Role Phone Bijan Mancera MD Unavailable [phone] Encounter Details Date Type Department Care Team (Late Contact Info) Description 10/04/2023 Orders Only External Location [address] [place] [address] Provider, External Social History Tobacco Use Types [...] Description 03/21/2024 7:45 AM EST Clinical Support [facility] [address] [facility] [address] [place] [address] 03/21/2024 9:20 AM EST Office Visit [facility] [address] [place] [address] Jean Greer MD [address] [place] [address] 03/21/2024 10:00 AM EST Office Visit [facility] [place] [address] [place] [address] Surgeon, Transplant Liver documented as of this encounter Procedures Procedure Name Priority Date/Time Associated Diagnosis Comments US OUTSIDE IMAGES 10/04/2023 9:41 AM EDT documented in this encounter Results * US OUTSIDE IMAGES (10/04/2023 9:41 AM EDT) Anatomical Region Laterality Modality Ultrasound 10/04/2023 9:41 AM EDT us External Provider IMG US PROCEDURES Final Result documented in this encounter Visit Diagnoses Not on filedocumented in this encounter Care Teams Boat Painter Relationship Specialty Start Date End Date Bijan Mancera MD [address] [place] [address] Referring Physician Gastroenterology 02/23/24 documented as of this encounter
--- OUTSIDE RECORDS SUMMARY | 2024-03-04 13:38 | XMS_ITS | Data Portability ---
Author Organization [facility] Chazi cBROOKS [place] CLOSED Address [address] [facility] [address] [place] [address] Care Team Providers Care Vocational Instructor Name Role Phone GOOD TAPIA Referring Provider Assessment Encounter Date Assessment Date Assessment LastModified [...] Not available Not available Not available Lab FSH (follic le-stim ulating hormone ), serum 2023 024 [facility], [address] [place] [address], [id number], 09/20/2023 13:27:16 lh (lutein izing hormone ), serum 2023 024 [facility], [address] [place] [address], [id number], 09/20/2023 13:27:17 prolact in, serum 2023 024 [facility], [address] [place] [address], [id number], 09/20/2023 13:27:13 testost erone, total, serum 2023 024 [facility] [place], [address] [place] [address], [id number], 09/20/2023 13:27:19 testost erone, free, serum 2023 024 [facility] [place], [address] [place] [address], [id number], 09/24/2023 10:21:23 CBC w/ auto diff 2023 024 [facility] [place], [address] [place] [address], [id number], 10/01/2023 11:38:08 testost erone, free, serum 2023 024 [facility] [place], [address] [place] [address], [id number], 10/07/2023 00:06:31 lh (lutein izing hormone ), serum 2023 024 [facility] [place], [address] [place] [address], [id number], 10/01/2023 12:13:25 testost erone, total, serum 2023 024 [facility] [place], [address] [place] [address], [id number], 10/01/2023 12:13:22 shbg (sex hormone -bindin g globuli n), serum 2023 024 [facility] [place], [address] [place] [address], [id number], 10/02/2023 13:55:02 BMP, serum or plasma 2023 024 [facility] [place], [address] [place] [address], [id number], 10/01/2023 12:10:12 testost erone, total, serum 2023 024 [facility], [address] [place] [address], [id number], 01/10/2024 19:50:00 CBC w/ auto diff 2023 024 [facility], [address] [place] [address], [id number], 01/10/2024 19:12:34 Referral None recorde d. Procedures None recorde d. Surgeries None recorde d. Imaging None recorde d. Medication Orders testost erone cypiona te 200 mg/mL intramu scular oil 2023 024 [id number], [address] [place], [address], 12/31/2023 12:19:07 Patient TargetsNo targets recorded. Patient InstructionsNo instructions recorded. Reason for Referral None Reported. Results Created Date Observation Date Name Description Value Unit Range Abnormal Flag Note LastModifiedBy Organization Detail LastModifiedTime 09/08/19 24 09/08/2023 HEMOG MIRTA white blood cells 4.3 10*3/ uL 3.8-10 .8 normal Not Available [facility] [address] [place] [address], [address], 09/08/2023 09:43:44 09/08/19 24 09/08/2023 HEMOG MIRTA red blood cells 4.91 10*6/ uL 4.20-5 .80 normal Not Available [facility] [address] [place] [address], [id number], 09/08/2023 09:43:44 09/08/19 24 09/08/2023 HEMOG MIRTA hemoglobin 14.5 g/dL 14.0-1 8.0 normal Not Available [facility] [address] [place] [address], [id number], 09/08/2023 09:43:44 09/08/19 24 09/08/2023 HEMOG MIRTA hematocrit 42.2 % 40.0-5 2.0 normal Not Available [facility] [address] [place] [address], [id number], 09/08/2023 09:43:44 09/08/19 24 09/08/2023 HEMOG MIRTA MCV 86 fL 80-100 normal Not Available [facility] [address] [place] [address], [id number], 09/08/2023 09:43:44 09/08/19 24 09/08/2023 HEMOG MIRTA MCH 30 pg 26-35 normal Not Available [facility] [address] [place] [address], [address], 09/08/2023 09:43:44 09/08/19 24 09/08/2023 HEMOG MIRTA MCHC 35 g/dL 32-36 normal Not Available [facility] [address] [place] [address], [id number], 09/08/2023 09:43:44 09/08/19 24 09/08/2023 HEMOG MIRTA RDW 14.7 % 11.0-1 5.0 normal Not Available [facility] [address] [place] [address], [address], 09/08/2023 09:43:44 09/08/19 24 09/08/2023 HEMOG MIRTA MPV 8.5 fL 6.2-10 .5 normal Not Available [facility] [address] [place] [address], [address], 09/08/2023 09:43:44 09/08/19 24 09/08/2023 HEMOG MIRTA platelet count 71 10*3/ uL 150-40 0 low Not Available [facility] [address] [place] [address], [address], 09/08/2023 09:43:44 09/08/19 24 09/08/2023 PROTH ROMBI N TIME prothrombin time 11.0 secon ds 9.4-11 .0 normal Not Available [facility] [address] [place] [address], [phone], 09/08/2023 10:07:55 09/08/19 24 09/08/2023 PROTH ROMBI N TIME INR 1.1 2.0-3. 0 low INR OF 2.0 TO 3.0 RECOM BAKARI D FOR: PROPH YLAXI S AND TREAT MENT OF VENOU S THROM BOSIS TREAT MENT OF PULMO NARY EMBOL ISM PREVE NTION OF SYSTE STEPHEN EMBOL ISM TISSU E HEART VALVE S, VALVU LAR HEART DISEA SE ACUTE MYOCA RDIAL INFAR CTION , ATRIA L FIBRI LLATI ON INR OF 2.5 TO 3.5 RECOM BAKARI D FOR: RECUR RENT SYSTE STEPHEN EMBOL ISM MECHA NICAL PROST HETIC VALVE S Not Available [facility] [address] [place] [address], [id number], 09/08/2023 10:07:55 09/08/19 24 09/08/2023 HEPAT IC (LIVE R) PANEL AST 199 U/L 0-40 high Not Available [facility] [address] [place] [address], [address], 09/08/2023 10:14:01 09/08/19 24 09/08/2023 HEPAT IC (LIVE R) PANEL ALT 143 U/L 0-41 high Not Available [facility] [address] [place] [address], [address], 09/08/2023 10:14:01 09/08/19 24 09/08/2023 HEPAT IC (LIVE R) PANEL alkaline phosphatase 125 U/L 40-129 normal Not Available [facility] [address] [place] [address], [address], 09/08/2023 10:14:01 09/08/19 24 09/08/2023 HEPAT IC (LIVE R) PANEL total protein 7.8 g/dL 6.4-8. 3 normal Not Available [facility] [address] [place] [address], [address], 09/08/2023 10:14:01 09/08/19 24 09/08/2023 HEPAT IC (LIVE R) PANEL albumin 3.3 g/dL 3.5-5. 2 low Not Available [facility] [address] [place] [address], [address], 09/08/2023 10:14:01 09/08/19 24 09/08/2023 HEPAT IC (LIVE R) PANEL bilirubin, total 0.9 mg/dL 0.1-1. 2 normal Not Available [facility] [address] [place] [address], [address], 09/08/2023 10:14:01 09/08/19 24 09/08/2023 HEPAT IC (LIVE R) PANEL bilirubin, direct 0.3 mg/dL 0.0-0. 3 normal Not Available [facility] [address] [place] [address], [id number], 09/08/2023 10:14:01 09/08/19 24 09/08/2023 HEPAT IC (LIVE R) PANEL bilirubin, indirect 0.6 mg/dL _(tomas c) 0.0-1. 0 normal Not Available [facility] [address] [place] [address], [address], 09/08/2023 10:14:01 09/08/19 24 09/08/2023 GGT GGT 129 U/L 8-61 high Not Available [facility] [address] [place] [address], [address], 09/08/2023 10:14:03 09/08/19 24 09/08/2023 HEPAT ITIS PANEL hepatitis A Ab, IgM NONREA CTIVE nonrea ctive normal Not Available [facility] [address] [place] [address], [address], 09/08/2023 11:08:15 09/08/19 24 09/08/2023 HEPAT ITIS PANEL hepatitis B surface Ag NONREA CTIVE nonrea ctive normal Not Available [facility] [address] [place] [address], [address], 09/08/2023 11:08:15 09/08/19 24 09/08/2023 HEPAT ITIS PANEL hepatitis B core Ab,IgM NONREA CTIVE nonrea ctive normal Not Available [facility] [address] [place] [address], [address], 09/08/2023 11:08:15 09/08/19 24 09/08/2023 HEPAT ITIS PANEL hcab, reflex viral RNA qt REACTI VE nonrea ctive abnormal Presu mptiv e evide nce of antib odies to HCV. Hepat itis C Viral RNA, PCR testi ng in progr ess. This is a Repor table Disea se and must be repor hannah to the [facility] withi n 5 busin ess days. Not Available [facility] [address] [place] [address], [address], 09/08/2023 11:08:15 09/08/19 24 09/10/2023 HEPAT ITIS C RNA, QT, PCR HCV RNA, qt, IU/mL [id number] 0 IU/mL not detect ed high Not Available [facility] [address] [place] [address], [address], 09/10/2023 15:41:20 09/08/19 24 09/10/2023 HEPAT ITIS C RNA, QT, PCR HCV RNA, qt, log IU/mL 6.03 log_I U/mL not detect ed high This test was perfo rmed using Real- Time Polym erase Chain React ion. Repor table Range : 15 IU/mL to 100,0 00,00 0 IU/mL (1.18 Log IU/mL to 8.00 Log IU/mL ). The bassem tical perfo rmanc e criss cteri stics of this assay have been deter mined by [employer] milagros bond. The modif icati ons have not been clear ed or appro uday by the FDA. This assay has been valid ated pursu ant to the CLIA regul ation s and is used for clini tomas purpo ses. For more infor mirela durand on this test, go to: http: //kris colonia gnost ics.c om/fa q/FAQ 22v1 (This link is being provi ded for infor mirela hess/ educa wiliam l purpo ses only. ) Not Available [facility] [address] [place] [address], [address], 09/10/2023 15:41:20 09/08/19 24 09/23/2023 LIVER FIBRO SIS TEST fibrosis score 0.80 normal Not Available [facility] [address] [place] [address], [address], 09/23/2023 22:02:24 09/08/19 24 09/23/2023 LIVER FIBRO SIS TEST fibrosis stage F4 normal Not Available [facility] [address] [place] [address], [address], 09/23/2023 22:02:24 09/08/19 24 09/23/2023 LIVER FIBRO SIS TEST fibrosis interpretati on SEE NOTE normal sever e fibro sis Fibro Test Score (f) Metav ir Score f>=0 and f<=0. 21 : F0 (no fibro sis) f>0.2 1 and f<=0. 27 : F0-F1 (no fibro sis) f>0.2 7 and f<=0. 31 : F1 (mini mal fibro sis) f>0.3 1 and f<=0. 48 : F1-F2 (mini mal fibro sis) f>0.4 8 and f<=0. 58 : F2 (mode rate fibro sis) f>0.5 8 and f<=0. 72 : F3 (adva nced fibro sis) f>0.7 2 and f<=0. 74 : F3-F4 (adva nced fibro sis) f>0.7 4 and f<=1. 00 : F4 (giuseppe re fibro sis) Not Available [facility] [address] [place] [address], [address], 09/23/2023 22:02:24 09/08/19 24 09/23/2023 LIVER FIBRO SIS TEST necroinflamm . act score 0.82 normal Not Available [facility] [address] [place], [address], 09/23/2023 22:02:24 09/08/19 24 09/23/2023 LIVER FIBRO SIS TEST necroinflamm . act grade A3 normal Not Available [facility] [address] [place], [address], 09/23/2023 22:02:24 09/08/19 24 09/23/2023 LIVER FIBRO SIS TEST necroinflamm . interp. SEE NOTE normal sever e activ ity ActiT est Score (a) Metav ir Score a>=0 and a<=0. 17 : A0 (no activ ity) a>0.1 7 and a<=0. 29 : A0-A1 (no activ ity) a>0.2 9 and a<=0. 36 : A1 (mini mal activ ity) a>0.3 6 and a<=0. 52 : A1-A2 (mini mal activ ity) a>0.5 2 and a<=0. 60 : A2 (sign ifica nt activ ity) a>0.6 0 and a<=0. 62 : A2-A3 (sign ifica nt activ ity) a>0.6 2 and a<=1. 00 : A3 (giuseppe re activ ity) Not Available [facility] [place], [address], 09/23/2023 22:02:24 09/08/19 24 09/23/2023 LIVER FIBRO SIS TEST uvxdh-0-zbut oglobulin 342 mg/dL 106-27 9 high Not Available [facility] [address] [place], [address], 09/23/2023 22:02:24 09/08/19 24 09/23/2023 LIVER FIBRO SIS TEST haptoglobin 85 mg/dL 43-212 normal Not Available [facility] [address] [place] [address], [address], 09/23/2023 22:02:24 09/08/19 24 09/23/2023 LIVER FIBRO SIS TEST apolipoprote in A1 87 mg/dL 94-176 low Not Available [facility] [address] [place] [address], [address], 09/23/2023 22:02:24 09/08/19 24 09/23/2023 LIVER FIBRO SIS TEST total bilirubin 0.9 mg/dL 0.2-1. 2 normal Not Available [facility] [address] [place] [address], [address], 09/23/2023 22:02:24 09/08/19 24 09/23/2023 LIVER FIBRO SIS TEST GGT 121 U/L 3-90 high Not Available [facility] [address] [place] [address], [address], 09/23/2023 22:02:24 09/08/19 24 09/23/2023 LIVER FIBRO SIS TEST ALT 133 U/L 9-46 high Not Available [facility] [address] [place] [address], [address], 09/23/2023 22:02:24 09/08/19 24 09/23/2023 LIVER FIBRO SIS TEST reference id [id number] normal Not Available [facility] [address] [place] [address], [address], 09/23/2023 22:02:24 09/08/19 24 09/23/2023 LIVER FIBRO SIS TEST footnote SEE NOTE normal The relia bilit y of resul ts is depen dent on compl iance with the prean alyti tomas and bassem tical condi tions recom bakari d by [employer] edict jelani. The tests have to be defer red for: acute hemol ysis, acute hepat itis, acute infla mmati on, extra hepat ic mary jo stasi s. The advic e of a speci alist shoul d be sough t for inter preta tion in chron ic hemol ysis and Gilbe rt's syndr ome. The test inter preta tion is not valid ated in liver trans plant patie nts. Tryon hannah extre me value s of one of the compo nents shoul d lead to cauti on in inter preti ng the resul ts. In case of disco rdanc e betwe en a biops y resul t and a test, it is recom bakari d to seek the advic e of a speci alist . The cause s of these disco rdanc es could be due to a flaw of the test or to a flaw in the biops y: i.e. a liver biops y has a 33% varia bilit y rate for one fibro sis stage . Fibro Test is inter preta ble for chron ic hepat itis B and C, alcoh olic and non alcoh olic steat osis. ActiT est is inter preta ble for chron ic hepat itis B and C. The perfo rmanc e criss cteri stics have been deter mined by [facility] Saud hannon, Mitch parker . It has not been clear ed or appro uday by the U.S. Food and Drug Admin istra tion. Perfo rmanc e criss cteri stics refer to the bassem tical perfo rmanc e of the test. [facility] , [facility], the assoc iated logo, Saud hannon and all assoc iated [facility] blackwood are the katia tered trade blackwood of [facility]. All third democrat blackwood - (R) and (TM) - are the prope rty of their respe ctive regional merchandising manager s. (C) 1999- 2013 [facility] Inc[employer] porat ed. All right s reser uday. Not Available [facility], [place], [address], 09/23/2023 22:02:24 09/20/19 24 09/20/2023 HEPAT ITIS B SURF. AB,QT hepatitis B surf.Ab,qt 86.3 m[IU] /mL > or = 10 normal Resul t is Posit jelani. Patie nt has immun ity to Hepat itis B virus . Not Available [facility] [address] [place] [address], [address], 09/20/2023 13:22:09 09/20/19 24 09/20/2023 PROLA CTIN prolactin 17.70 NG/mL 4.04-1 5.20 high Not Available [facility] [place], [address], 09/20/2023 13:27:13 09/20/19 24 09/20/2023 FOLLI MAGUE STIM. HORMO NE follicle stim. hormone 0.8 m[IU] /mL 1.5-12 .4 low FSH EXPEC HANNAH VALUE S FEMAL ES: FOLLI CULAR PHASE : 3.5 - 12.5 MIU/M L OVULA TION PHASE : 4.7 - 21.5 MIU/M L LUTEA L PHASE : 1.7 - 7.7 MIU/M L POST MENOP AUSE: 25.8 - 134.8 MIU/M L . Not Available [facility] [address] [place] [address], [address], 09/20/2023 13:27:16 09/20/19 24 09/20/2023 LUTEN IZING HORMO NE lutenizing hormone 1.1 m[IU] /mL 1.7-8. 6 low LH EXPEC HANNAH VALUE S WOMEN : FOLLI CULAR PHASE 2.4-1 2.6 mIU/m L OVULA TION PHASE 14.0- 95.6 mIU/m L LUTEA L PHASE 1.0-1 1.4 mIU/m L POSTM ENOPA USE 7.7-5 8.5 mIU/m L . Not Available [facility] [address] [place] [address], [address], 09/20/2023 13:27:17 09/20/19 24 09/20/2023 TESTO STERO NE, TOTAL testosterone , total 31 NG/dL 249-83 6 low Refer ence range is for age 20-49 years . Not Available [facility] [address] [place], [address], 09/20/2023 13:27:19 09/20/19 24 09/22/2023 HIV SCREE N HIV screen NON-RE ACTIVE non-re active normal HIV-1 antig en and HIV-1 /HIV- 2 antib odies were not detec hannah. There is no labor atory evide nce of HIV infec tion. PLEAS E NOTE: This infor matio n has been discl osed to you from recor ds whose confi denti ality may be prote cted by state law. If your state requi res such prote ction , then the state law prohi bits you from theodore tinajero furth er discl osure of the infor matio n witho ut the speci fic writt en conse nt of the perso n to whom it perta ins, or as other gallardo permi tted by law. A gener al autho rizat ion for the relea se of medic al or other infor matio n is NOT suffi cient for this purpo se. For addit ional infor matio n pleas e refer to http: //[facility] federica durand.que stdia gnost ics.c om/fa q/FAQ 106 (This link is being provi ded for infor matio nal/ educa wiliam l purpo ses only. ) The perfo rmanc e of this assay has not been clini dagmar valid ated in patie nts less than 2 years old. Not Available [facility] [address] [place], [address], 09/22/2023 16:08:48 09/20/19 24 09/24/2023 TESTO STERO NE, FREE testosterone , free 1.6 pg/mL 46.0-2 24.0 low MDF med fusio n [address] [facility] [address] [place] [phone] Alvaro Strickland MD, PhD Not Available [facility] [address] [place], [address], 09/24/2023 10:21:22 09/20/19 24 09/25/2023 HEPAT ITIS C RNA,G ENOTY PE hepatitis C RNA,genotype 3 normal The metho d used in this test is RT-PC R and rever se hybri dizat ion (Line Probe ) of the 5' UTR and core regio n of the HCV genom e. The bassem tical perfo rmanc e criss cteri stics of this assay have been deter mined by [employer]. The modif icati ons have not been clear ed or appro uday by the FDA. This assay has been valid ated pursu ant to the CLIA regul ation s and is used for clini tomas purpo ses. For addit ional infor nenita meade e refer to http: //[facility] feder[facility] durand.Jose Guadalupe stDia gnost ics.c om /faq/ HCVGe notyp ing (This link id being provi ded for infor mirela hess/ educa wiliam l purpo ses only. ) Not Available [facility] [address] [place] [address], [address], 09/25/2023 02:51:50 10/01/19 24 10/01/2023 COMPL ETE BLOOD COUNT white blood cells 4.1 10*3/ uL 3.8-10 .8 normal Not Available [facility] [address] [place] [address], [address], 10/01/2023 11:38:08 10/01/19 24 10/01/2023 COMPL ETE BLOOD COUNT red blood cells 4.71 10*6/ uL 4.20-5 .80 normal Not Available [facility] [address] [place] [address], [address], 10/01/2023 11:38:08 10/01/19 24 10/01/2023 COMPL ETE BLOOD COUNT hemoglobin 14.0 g/dL 14.0-1 8.0 normal Not Available [facility] [address] [place] [address], [address], 10/01/2023 11:38:08 10/01/19 24 10/01/2023 COMPL ETE BLOOD COUNT hematocrit 40.9 % 40.0-5 2.0 normal Not Available [facility] [address] [place] [address], [address], 10/01/2023 11:38:08 10/01/19 24 10/01/2023 COMPL ETE BLOOD COUNT MCV 87 fL 80-100 normal Not Available [facility] [address] [place] [address], [address], 10/01/2023 11:38:08 10/01/19 24 10/01/2023 COMPL ETE BLOOD COUNT MCH 30 pg 26-35 normal Not Available [facility] [address] [place] [address], [address], 10/01/2023 11:38:08 10/01/19 24 10/01/2023 COMPL ETE BLOOD COUNT MCHC 34 g/dL 32-36 normal Not Available [facility] [address] [place] [address], [address], 10/01/2023 11:38:08 10/01/19 24 10/01/2023 COMPL ETE BLOOD COUNT RDW 14.6 % 11.0-1 5.0 normal Not Available [facility] [address] [place] [address], [address], 10/01/2023 11:38:08 10/01/19 24 10/01/2023 COMPL ETE BLOOD COUNT MPV 9.1 fL 6.2-10 .5 normal Not Available [facility] [address] [place] [address], [address], 10/01/2023 11:38:08 10/01/19 24 10/01/2023 COMPL ETE BLOOD COUNT platelet count 62 10*3/ uL 150-40 0 low Not Available [facility] [address] [place] [address], [address], 10/01/2023 11:38:08 10/01/19 24 10/01/2023 COMPL ETE BLOOD COUNT neutrophil,a bsolute 1.9 10*3/ uL 1.6-8. 4 normal Not Available [facility] [address] [place] [address], [address], 10/01/2023 11:38:08 10/01/19 24 10/01/2023 COMPL ETE BLOOD COUNT lymphocyte,a bsolute 1.8 10*3/ uL 0.4-5. 1 normal Not Available [facility] [address] [place] [address], [address], 10/01/2023 11:38:08 10/01/19 24 10/01/2023 COMPL ETE BLOOD COUNT monocyte,abs olute 0.3 10*3/ uL 0.0-1. 2 normal Not Available [facility] [address] [place] [address], [address], 10/01/2023 11:38:08 10/01/19 24 10/01/2023 COMPL ETE BLOOD COUNT eosinophil,a bsolute 0.1 10*3/ uL 0.0-0. 8 normal Not Available [facility] [address] [place] [address], [address], 10/01/2023 11:38:08 10/01/19 24 10/01/2023 COMPL ETE BLOOD COUNT basophil,abs olute 0.0 10*3/ uL 0.0-0. 3 normal Not Available [facility] [address] [place] [address], [address], 10/01/2023 11:38:08 10/01/19 24 10/01/2023 COMPL ETE BLOOD COUNT % neutrophils 46.6 % 42.0-7 8.0 normal Not Available [facility] [address] [place] [address], [address], 10/01/2023 11:38:08 10/01/19 24 10/01/2023 COMPL ETE BLOOD COUNT % lymphocytes 43.6 % 11.0-4 7.0 normal Not Available [facility] [address] [place] [address], [address], 10/01/2023 11:38:08 10/01/19 24 10/01/2023 COMPL ETE BLOOD COUNT % monocytes 6.6 % 0.0-11 .0 normal Not Available [facility] [address] [place] [address], [address], 10/01/2023 11:38:08 10/01/19 24 10/01/2023 COMPL ETE BLOOD COUNT % eosinophils 2.3 % 0.0-7. 0 normal Not Available [facility] [address] [place] [address], [address], 10/01/2023 11:38:08 10/01/19 24 10/01/2023 COMPL ETE BLOOD COUNT % basophils 0.9 % 0.0-3. 0 normal Not Available [facility] [address] [place] [address], [address], 10/01/2023 11:38:08 10/01/19 24 10/01/2023 COMPL ETE BLOOD COUNT nucleated red cells 0.0 % 0.0-0. 9 normal Not Available [facility] [address] [place] [address], [address], 10/01/2023 11:38:08 10/01/19 24 10/01/2023 COMPL ETE BLOOD COUNT nucleated RBCs, absolute 0.00 10*3/ uL not estab. normal Not Available [facility] [address] [place] [address], [address], 10/01/2023 11:38:08 10/01/19 24 10/01/2023 BASIC METAB OLIC PANEL glucose 105 mg/dL 74-100 high Not Available [facility] [address] [place] [address], [address], 10/01/2023 12:10:11 10/01/19 24 10/01/2023 BASIC METAB OLIC PANEL blood urea nitrogen 10 mg/dL 6-20 normal Not Available [facility] [address] [place] [address], [address], 10/01/2023 12:10:11 10/01/19 24 10/01/2023 BASIC METAB OLIC PANEL creatinine 0.66 mg/dL 0.70-1 .28 low Not Available [facility] [address] [place] [address], [address], 10/01/2023 12:10:11 10/01/19 24 10/01/2023 BASIC METAB OLIC PANEL BUN/creatini ne ratio 15 (calc ) 10-20 normal Not Available [facility] [address] [place] [address], [address], 10/01/2023 12:10:11 10/01/19 24 10/01/2023 BASIC METAB OLIC PANEL sodium 138 mmol/ L 136-14 5 normal Not Available [facility] [address] [place] [address], [address], 10/01/2023 12:10:11 10/01/19 24 10/01/2023 BASIC METAB OLIC PANEL potassium 4.0 mmol/ L 3.4-5. 0 normal Not Available [facility] [address] [place] [address], [address], 10/01/2023 12:10:11 10/01/19 24 10/01/2023 BASIC METAB OLIC PANEL chloride 105 mmol/ L 98-107 normal Not Available [facility] [address] [place] [address], [address], 10/01/2023 12:10:11 10/01/19 24 10/01/2023 BASIC METAB OLIC PANEL carbon dioxide 24 mmol/ L 22-31 normal Not Available [facility] [address] [place] [address], [address], 10/01/2023 12:10:11 10/01/19 24 10/01/2023 BASIC METAB OLIC PANEL anion gap 9 (calc ) 7-25 normal Not Available [facility] [address] [place], [address], 10/01/2023 12:10:11 10/01/19 24 10/01/2023 BASIC METAB OLIC PANEL calcium 8.6 mg/dL 8.6-10 .2 normal Not Available [facility] [address] [place], [address], 10/01/2023 12:10:11 10/01/19 24 10/01/2023 BASIC METAB OLIC PANEL GFR 125 >= 60 normal NOT E New calcu latio n for GFR (CKD- EPI 2020) is formu lated witho ut race adjus tment facto rs at the [facility] menda tion of the [facility] [place] [place] [facility] . This calcu latio n has not been valid ated in pregn ant women . For pedia tric patie nts refer to https ://rodríguez w.chaparro mcmillan.o rg/pr ofess ional s/KDO QI/gf r_cal culat orPed Not Available [facility] [address] [place], [address], 10/01/2023 12:10:11 10/01/19 24 10/01/2023 TESTO STERO NE, TOTAL testosterone , total 26 NG/dL 249-83 6 low Refer ence range is for age 20-49 years . Not Available [facility] [address] [place], [address], 10/01/2023 12:13:22 10/01/19 24 10/01/2023 LUTEN IZING HORMO NE lutenizing hormone 1.8 m[IU] /mL 1.7-8. 6 normal LH EXPEC HANNAH VALUE S WOMEN : FOLLI CULAR PHASE 2.4-1 2.6 mIU/m L OVULA TION PHASE 14.0- 95.6 mIU/m L LUTEA L PHASE 1.0-1 1.4 mIU/m L POSTM ENOPA USE 7.7-5 8.5 mIU/m L . Not Available [facility] [address] [place] [address], [address], 10/01/2023 12:13:25 10/01/19 24 10/02/2023 SEX HORMO NE BIND. GLOB. sex hormone bind.glob. 76 nmol/ L 10-50 high Not Available [facility] [address] [place] [address], [address], 10/02/2023 13:55:02 10/01/19 24 10/06/2023 TESTO STERO NE, FREE testosterone , free 1.6 pg/mL 46.0-2 24.0 low [facility] med fusio n [address] [facility] [address] [facility] [address] [phone] [facility] russell Strickland MD, PhD Not Available [facility] [address] [place] [address], [address], 10/07/2023 00:06:30 11/16/19 24 11/16/2023 COMPL ETE BLOOD COUNT white blood cells 5.9 10*3/ uL 3.8-10 .8 normal Not Available [facility] [address] [place] [address], [address], 11/16/2023 19:03:13 11/16/19 24 11/16/2023 COMPL ETE BLOOD COUNT red blood cells 5.25 10*6/ uL 4.20-5 .80 normal Not Available [facility] [address] [place] [address], [address], 11/16/2023 19:03:13 11/16/19 24 11/16/2023 COMPL ETE BLOOD COUNT hemoglobin 15.3 g/dL 14.0-1 8.0 normal Not Available [facility] [address] [place] [address], [address], 11/16/2023 19:03:13 11/16/19 24 11/16/2023 COMPL ETE BLOOD COUNT hematocrit 44.3 % 40.0-5 2.0 normal Not Available [facility] [address] [place] [address], [address], 11/16/2023 19:03:13 11/16/19 24 11/16/2023 COMPL ETE BLOOD COUNT MCV 84 fL 80-100 normal Not Available [facility] [address] [place] [address], [address], 11/16/2023 19:03:13 11/16/1911/16/2023 COMPL ETE BLOOD COUNT MCH 29 pg 26-35 normal Not Available [facility] [address] [place] [address], [address], 11/16/2023 19:03:13 11/16/1911/16/2023 COMPL ETE BLOOD COUNT MCHC 35 g/dL 32-36 normal Not Available [facility] [address] [place] [address], [address], 11/16/2023 19:03:11/16/1911/16/2023 COMPL ETE BLOOD COUNT RDW 14.1 % 11.0-1 5.0 normal Not Available [facility] [address] [place] [address], [address], 11/16/2023 19:03:13 11/16/1911/16/2023 COMPL ETE BLOOD COUNT MPV 9.1 fL 6.2-10 .5 normal Not Available [facility] [address] [place] [address], [address], 11/16/2023 19:03:11/16/1911/16/2023 COMPL ETE BLOOD COUNT platelet count 91 10*3/ uL 150-40 0 low Not Available [facility] [address] [place] [address], [address], 11/16/2023 19:03:11/16/1911/16/2023 COMPL ETE BLOOD COUNT neutrophil,a bsolute 2.9 10*3/ uL 1.6-8. 4 normal Not Available [facility] [address] [place] [address], [address], 11/16/2023 19:03:11/16/19 24 11/16/2023 COMPL ETE BLOOD COUNT lymphocyte,a bsolute 2.4 10*3/ uL 0.4-5. 1 normal Not Available [facility] [address] [place] [address], [address], 11/16/2023 19:03:11/16/1911/16/2023 COMPL ETE BLOOD COUNT monocyte,abs olute 0.4 10*3/ uL 0.0-1. 2 normal Not Available [facility] [address] [place] [address], [address], 11/16/2023 19:03:11/16/1911/16/2023 COMPL ETE BLOOD COUNT eosinophil,a bsolute 0.1 10*3/ uL 0.0-0. 8 normal Not Available [facility] [address] [place] [address], [address], 11/16/2023 19:03:11/16/1911/16/2023 COMPL ETE BLOOD COUNT basophil,abs olute 0.0 10*3/ uL 0.0-0. 3 normal Not Available [facility] [address] [place] [address], [address], 11/16/2023 19:03:11/16/1911/16/2023 COMPL ETE BLOOD COUNT % neutrophils 49.1 % 42.0-7 8.0 normal Not Available [facility] [address] [place] [address], [address], 11/16/2023 19:03:11/16/1911/16/2023 COMPL ETE BLOOD COUNT % lymphocytes 41.2 % 11.0-4 7.0 normal Not Available [facility] [address] [place] [address], [address], 11/16/2023 19:03:13 11/16/19 24 11/16/2023 COMPL ETE BLOOD COUNT % monocytes 6.9 % 0.0-11 .0 normal Not Available [facility] [address] [place] [address], [address], 11/16/2023 19:03:13 11/16/19 24 11/16/2023 COMPL ETE BLOOD COUNT % eosinophils 2.1 % 0.0-7. 0 normal Not Available [facility] [address] [place] [address], [address], 11/16/2023 19:03:11/16/1911/16/2023 COMPL ETE BLOOD COUNT % basophils 0.7 % 0.0-3. 0 normal Not Available [facility] [address] [place] [address], [address], 11/16/2023 19:03:13 11/16/19 24 11/16/2023 COMPL ETE BLOOD COUNT nucleated red cells 0.2 % 0.0-0. 9 normal Not Available [facility] [address] [place] [address], [address], 11/16/2023 19:03:13 11/16/1911/16/2023 COMPL ETE BLOOD COUNT nucleated RBCs, absolute 0.01 10*3/ uL not estab. normal Not Available [facility] [address] [place] [address], [address], 11/16/2023 19:03:13 11/16/1911/16/2023 COMP. METAB OLIC PANEL glucose 122 mg/dL 74-100 high Not Available [facility] [address] [place] [address], [address], 11/16/2023 19:10:10 11/16/1911/16/2023 COMP. METAB OLIC PANEL blood urea nitrogen 8 mg/dL 6-20 normal Not Available [facility] [address] [place] [address], [address], 11/16/2023 19:10:10 11/16/19 24 11/16/2023 COMP. METAB OLIC PANEL creatinine 0.73 mg/dL 0.70-1 .28 normal Not Available [facility] [address] [place] [address], [address], 11/16/2023 19:10:10 11/16/19 24 11/16/2023 COMP. METAB OLIC PANEL BUN/creatini ne ratio 11 (calc ) 10-20 normal Not Available [facility] [address] [place] [address], [address], 11/16/2023 19:10:10 11/16/19 24 11/16/2023 COMP. METAB OLIC PANEL sodium 136 mmol/ L 136-14 5 normal Not Available [facility] [address] [place] [address], [address], 11/16/2023 19:10:10 11/16/19 24 11/16/2023 COMP. METAB OLIC PANEL potassium 3.9 mmol/ L 3.4-5. 0 normal Not Available [facility] [address] [place] [address], [address], 11/16/2023 19:10:10 11/16/19 24 11/16/2023 COMP. METAB OLIC PANEL chloride 101 mmol/ L 98-107 normal Not Available [facility] [address] [place] [address], [address], 11/16/2023 19:10:10 11/16/19 24 11/16/2023 COMP. METAB OLIC PANEL carbon dioxide 24 mmol/ L 22-31 normal Not Available [facility] [address] [place] [address], [address], 11/16/2023 19:10:10 11/16/19 24 11/16/2023 COMP. METAB OLIC PANEL anion gap 11 (calc ) 7-25 normal Not Available [facility] [address] [place] [address], [address], 11/16/2023 19:10:10 11/16/19 24 11/16/2023 COMP. METAB OLIC PANEL calcium 9.1 mg/dL 8.6-10 .2 normal Not Available [facility] [address] [place] [address], [address], 11/16/2023 19:10:10 11/16/19 24 11/16/2023 COMP. METAB OLIC PANEL total protein 8.4 g/dL 6.4-8. 3 high Not Available [facility] [address] [place] [address], [address], 11/16/2023 19:10:10 11/16/19 24 11/16/2023 COMP. METAB OLIC PANEL albumin 3.6 g/dL 3.5-5. 2 normal Not Available [facility] [address] [place] [address], [address], 11/16/2023 19:10:10 11/16/19 24 11/16/2023 COMP. METAB OLIC PANEL globulin 4.8 1.5-4. 5 high Not Available [facility] [address] [place] [address], [address], 11/16/2023 19:10:10 11/16/19 24 11/16/2023 COMP. METAB OLIC PANEL albumin/glob ulin ratio 0.8 (calc ) 1.1-2. 5 low Not Available [facility] [address] [place] [address], [address], 11/16/2023 19:10:10 11/16/19 24 11/16/2023 COMP. METAB OLIC PANEL bilirubin, total 0.7 mg/dL 0.1-1. 2 normal Not Available [facility] [address] [place] [address], [address], 11/16/2023 19:10:10 11/16/19 24 11/16/2023 COMP. METAB OLIC PANEL alkaline phosphatase 119 U/L 40-129 normal Not Available [facility] [address] [place], [address], 11/16/2023 19:10:10 11/16/19 24 11/16/2023 COMP. METAB OLIC PANEL AST 56 U/L 0-40 high Not Available [facility] [address] [place], [address], 11/16/2023 19:10:10 11/16/19 24 11/16/2023 COMP. METAB OLIC PANEL ALT 46 U/L 0-41 high Not Available [facility] [address] [place] [address], [address], 11/16/2023 19:10:10 11/16/19 24 11/16/2023 COMP. METAB OLIC PANEL GFR 122 >= 60 normal NOT E New calcu latio n for GFR (CKD- EPI 2020) is formu lated witho ut race adjus tment facto rs at the [facility] menda tion of the Dwight sifuentes and Mira weldon [facility] . This calcu latio n has not been valid ated in pregn ant women . For pedia tric patie nts refer to https ://rodríguez mcmillan.shereen [email or web address]/madelin gray s/KDO QI/gf r_cal culat orPed Not Available [facility] [address] [place], [address], 11/16/2023 19:10:10 11/16/19 24 11/16/2023 HEPAT IC (LIVE R) PANEL bilirubin, direct 0.2 mg/dL 0.0-0. 3 normal Not Available [facility] [address] [place], [address], 11/16/2023 19:10:12 11/16/19 24 11/16/2023 HEPAT IC (LIVE R) PANEL bilirubin, indirect 0.5 mg/dL _(tomas c) 0.0-1. 0 normal Not Available [facility] [address] [place] [address], [address], 11/16/2023 19:10:12 11/16/19 24 11/16/2023 PROTH ROMBI N TIME prothrombin time 11.5 secon ds 9.2-11 .0 high Not Available [facility] [address] [place] [address], [address], 11/16/2023 19:24:55 11/16/19 24 11/16/2023 PROTH ROMBI N TIME INR 1.2 2.0-3. 0 low INR OF 2.0 TO 3.0 RECOM BAKARI D FOR: PROPH YLAXI S AND TREAT MENT OF VENOU S THROM BOSIS TREAT MENT OF PULMO NARY EMBOL ISM PREVE NTION OF SYSTE STEPEHN EMBOL ISM TISSU E HEART VALVE S, VALVU LAR HEART DISEA SE ACUTE MYOCA RDIAL INFAR CTION , ATRIA L FIBRI LLATI ON INR OF 2.5 TO 3.5 RECOM BAKARI D FOR: RECUR RENT SYSTE STEPHEN EMBOL ISM MECHA NICAL PROST HETIC VALVE S Not Available [facility] [address] [place] [address], [address], 11/16/2023 19:24:55 11/16/19 24 11/18/2023 HEPAT ITIS C RNA, QT, PCR HCV RNA, qt, IU/mL SEE BELOW IU/mL not detect ed normal <15 NOT DETEC HANNAH Not Available [facility] [address] [place], [address], 11/18/2023 15:53:53 11/16/19 24 11/18/2023 HEPAT ITIS C RNA, QT, PCR HCV RNA, qt, log IU/mL SEE BELOW log_I U/mL not detect ed normal <1.18 NOT DETEC HANNAH For addit ional infor matio n, pleas e refer to http: //edu catio n.que stdia gnost ics.c om/fa q/FAQ 22v1 (This link is being provi ded for infor mirela hess/ mckay marks only. ) Not Available [facility] [address] [place] [address], [address], 11/18/2023 15:53:53 12/31/19 24 12/31/2023 COMPL ETE BLOOD COUNT white blood cells 5.1 10*3/ uL 3.8-10 .8 normal Not Available [facility] [address] [place] [address], [address], 12/31/2023 12:24:18 12/31/19 24 12/31/2023 COMPL ETE BLOOD COUNT red blood cells 4.88 10*6/ uL 4.20-5 .80 normal Not Available [facility] [address] [place] [address], [address], 12/31/2023 12:24:18 12/31/19 24 12/31/2023 COMPL ETE BLOOD COUNT hemoglobin 14.1 g/dL 14.0-1 8.0 normal Not Available [facility] [address] [place] [address], [address], 12/31/2023 12:24:18 12/31/19 24 12/31/2023 COMPL ETE BLOOD COUNT hematocrit 40.8 % 40.0-5 2.0 normal Not Available [facility] [address] [place] [address], [address], 12/31/2023 12:24:18 12/31/19 24 12/31/2023 COMPL ETE BLOOD COUNT MCV 84 fL 80-100 normal Not Available [facility] [address] [place] [address], [address], 12/31/2023 12:24:18 12/31/19 24 12/31/2023 COMPL ETE BLOOD COUNT MCH 29 pg 26-35 normal Not Available [facility] [address] [place] [address], [address], 12/31/2023 12:24:18 12/31/19 24 12/31/2023 COMPL ETE BLOOD COUNT MCHC 35 g/dL 32-36 normal Not Available [facility] [address] [place] [address], [address], 12/31/2023 12:24:18 12/31/19 24 12/31/2023 COMPL ETE BLOOD COUNT RDW 14.8 % 11.0-1 5.0 normal Not Available [facility] [address] [place] [address], [address], 12/31/2023 12:24:18 12/31/19 24 12/31/2023 COMPL ETE BLOOD COUNT MPV 8.7 fL 6.2-10 .5 normal Not Available [facility] [address] [place] [address], [address], 12/31/2023 12:24:18 12/31/19 24 12/31/2023 COMPL ETE BLOOD COUNT platelet count 76 10*3/ uL 150-40 0 low Not Available [facility] [address] [place] [address], [address], 12/31/2023 12:24:18 12/31/19 24 12/31/2023 COMPL ETE BLOOD COUNT neutrophil,a bsolute 2.4 10*3/ uL 1.6-8. 4 normal Not Available [facility] [address] [place] [address], [address], 12/31/2023 12:24:18 12/31/19 24 12/31/2023 COMPL ETE BLOOD COUNT lymphocyte,a bsolute 2.2 10*3/ uL 0.4-5. 1 normal Not Available [facility] [address] [place] [address], [address], 12/31/2023 12:24:18 12/31/19 24 12/31/2023 COMPL ETE BLOOD COUNT monocyte,abs olute 0.4 10*3/ uL 0.0-1. 2 normal Not Available [facility] [address] [place] [address], [address], 12/31/2023 12:24:18 12/31/19 24 12/31/2023 COMPL ETE BLOOD COUNT eosinophil,a bsolute 0.1 10*3/ uL 0.0-0. 8 normal Not Available [facility] [address] [place] [address], [address], 12/31/2023 12:24:18 12/31/19 24 12/31/2023 COMPL ETE BLOOD COUNT basophil,abs olute 0.0 10*3/ uL 0.0-0. 3 normal Not Available [facility] [address] [place] [address], [address], 12/31/2023 12:24:18 12/31/19 24 12/31/2023 COMPL ETE BLOOD COUNT % neutrophils 46.9 % 42.0-7 8.0 normal Not Available [facility] [address] [place] [address], [address], 12/31/2023 12:24:18 12/31/19 24 12/31/2023 COMPL ETE BLOOD COUNT % lymphocytes 42.8 % 11.0-4 7.0 normal Not Available [facility] [address] [place] [address], [address], 12/31/2023 12:24:18 12/31/19 24 12/31/2023 COMPL ETE BLOOD COUNT % monocytes 7.9 % 0.0-11 .0 normal Not Available [facility] [address] [place] [address], [address], 12/31/2023 12:24:18 12/31/19 24 12/31/2023 COMPL ETE BLOOD COUNT % eosinophils 1.8 % 0.0-7. 0 normal Not Available [facility] [address] [place] [address], [address], 12/31/2023 12:24:18 12/31/19 24 12/31/2023 COMPL ETE BLOOD COUNT % basophils 0.6 % 0.0-3. 0 normal Not Available [address], [address], 12/31/2023 12:24:18 12/31/19 24 12/31/2023 COMPL ETE BLOOD COUNT nucleated red cells 0.1 % 0.0-0. 9 normal Not Available [facility] [address] [place] [address], [address], 12/31/2023 12:24:18 12/31/19 24 12/31/2023 COMPL ETE BLOOD COUNT nucleated RBCs, absolute 0.01 10*3/ uL not estab. normal Not Available [facility] [address] [place] [address], [address], 12/31/2023 12:24:18 12/31/19 24 12/31/2023 COMP. METAB OLIC PANEL glucose 94 mg/dL 74-100 normal Not Available [facility] [address] [place] [address], [address], 12/31/2023 12:42:25 12/31/19 24 12/31/2023 COMP. METAB OLIC PANEL blood urea nitrogen 12 mg/dL 6-20 normal Not Available [facility] [address] [place] [address], [address], 12/31/2023 12:42:25 12/31/19 24 12/31/2023 COMP. METAB OLIC PANEL creatinine 0.76 mg/dL 0.70-1 .28 normal Not Available [facility] [address] [place] [address], [address], 12/31/2023 12:42:25 12/31/19 24 12/31/2023 COMP. METAB OLIC PANEL BUN/creatini ne ratio 16 (calc ) 10-20 normal Not Available [facility] [address] [place] [address], [address], 12/31/2023 12:42:25 12/31/19 24 12/31/2023 COMP. METAB OLIC PANEL sodium 137 mmol/ L 136-14 5 normal Not Available [facility] [address] [place] [address], [address], 12/31/2023 12:42:25 12/31/19 24 12/31/2023 COMP. METAB OLIC PANEL potassium 4.7 mmol/ L 3.4-5. 0 normal Not Available [facility] [address] [place] [address], [address], 12/31/2023 12:42:25 12/31/19 24 12/31/2023 COMP. METAB OLIC PANEL chloride 103 mmol/ L 98-107 normal Not Available [facility] [address] [place] [address], [address], 12/31/2023 12:42:25 12/31/19 24 12/31/2023 COMP. METAB OLIC PANEL carbon dioxide 22 mmol/ L 22-31 normal Not Available [facility] [address] [place] [address], [address], 12/31/2023 12:42:25 12/31/19 24 12/31/2023 COMP. METAB OLIC PANEL anion gap 12 (calc ) 7-25 normal Not Available [facility] [address] [place] [address], [address], 12/31/2023 12:42:25 12/31/19 24 12/31/2023 COMP. METAB OLIC PANEL calcium 9.4 mg/dL 8.6-10 .2 normal Not Available [facility] [address] [place] [address], [address], 12/31/2023 12:42:25 12/31/19 24 12/31/2023 COMP. METAB OLIC PANEL total protein 7.3 g/dL 6.4-8. 3 normal Not Available [facility] [address] [place] [address], [address], 12/31/2023 12:42:25 12/31/19 24 12/31/2023 COMP. METAB OLIC PANEL albumin 3.5 g/dL 3.5-5. 2 normal Not Available [facility] [address] [place] [address], [address], 12/31/2023 12:42:25 12/31/19 24 12/31/2023 COMP. METAB OLIC PANEL globulin 3.8 1.5-4. 5 normal Not Available [facility] [address] [place] [address], [address], 12/31/2023 12:42:25 12/31/19 24 12/31/2023 COMP. METAB OLIC PANEL albumin/glob ulin ratio 0.9 (calc ) 1.1-2. 5 low Not Available [facility] [address] [place] [address], [address], 12/31/2023 12:42:25 12/31/19 24 12/31/2023 COMP. METAB OLIC PANEL bilirubin, total 0.4 mg/dL 0.1-1. 2 normal Not Available [facility] [address] [place] [address], [address], 12/31/2023 12:42:25 12/31/19 24 12/31/2023 COMP. METAB OLIC PANEL alkaline phosphatase 149 U/L 40-129 high Not Available [facility] [address] [place] [address], [address], 12/31/2023 12:42:25 12/31/19 24 12/31/2023 COMP. METAB OLIC PANEL AST 57 U/L 0-40 high Not Available [facility] [address] [place] [address], [address], 12/31/2023 12:42:25 12/31/19 24 12/31/2023 COMP. METAB OLIC PANEL ALT 56 U/L 0-41 high Not Available [facility] [address] [place], [address], 12/31/2023 12:42:25 12/31/19 24 12/31/2023 COMP. METAB OLIC PANEL GFR 120 >= 60 normal NOT E New calcu latio n for GFR (CKD- EPI 2020) is formu lated witho ut race adjus tment facto rs at the recom menda tion of the [facility] at[facility] and [facility] Nephr ology . This calcu latio n has not been valid ated in pregn ant women . For pedia enoch patie nts refer to https ://rodrígeuz [email or web address].shereen [email or web address]/madelin gray s/TOYAO QI/gf r_cal culat orPed Not Available [facility] [address] [place] [address], [address], 12/31/2023 12:42:25 01/10/20 24 01/10/2024 COMPL ETE BLOOD COUNT white blood cells 5.2 10*3/ uL 3.8-10 .8 normal Not Available [facility] [address] [place] [address], [address], 01/10/2024 19:12:34 01/10/20 24 01/10/2024 COMPL ETE BLOOD COUNT red blood cells 4.82 10*6/ uL 4.20-5 .80 normal Not Available [facility] [address] [place], [address], 01/10/2024 19:12:34 01/10/20 24 01/10/2024 COMPL ETE BLOOD COUNT hemoglobin 14.1 g/dL 14.0-1 8.0 normal Not Available [facility] [address] [place] [address], [phone], 01/10/2024 19:12:34 01/10/20 24 01/10/2024 COMPL ETE BLOOD COUNT hematocrit 40.6 % 40.0-5 2.0 normal Not Available [facility] [address] [place] [address], [address], 01/10/2024 19:12:34 01/10/20 24 01/10/2024 COMPL ETE BLOOD COUNT MCV 84 fL 80-100 normal Not Available [facility] [address] [place] [address], [address], 01/10/2024 19:12:34 01/10/20 24 01/10/2024 COMPL ETE BLOOD COUNT MCH 29 pg 26-35 normal Not Available [facility] [address] [place] [address], [phone], 01/10/2024 19:12:34 01/10/20 24 01/10/2024 COMPL ETE BLOOD COUNT MCHC 35 g/dL 32-36 normal Not Available [facility] [address] [place] [address], [address], 01/10/2024 19:12:34 01/10/20 24 01/10/2024 COMPL ETE BLOOD COUNT RDW 14.7 % 11.0-1 5.0 normal Not Available [facility] [address] [place] [address], [address], 01/10/2024 19:12:34 01/10/20 24 01/10/2024 COMPL ETE BLOOD COUNT MPV 8.3 fL 6.2-10 .5 normal Not Available [facility] [address] [place] [address], [address], 01/10/2024 19:12:34 01/10/20 24 01/10/2024 COMPL ETE BLOOD COUNT platelet count 83 10*3/ uL 150-40 0 low Not Available [facility] [address] [place] [address], [address], 01/10/2024 19:12:34 01/10/20 24 01/10/2024 COMPL ETE BLOOD COUNT neutrophil,a bsolute 2.6 10*3/ uL 1.6-8. 4 normal Not Available [facility] [address] [place] [address], [phone], 01/10/2024 19:12:34 01/10/2001/10/2024 COMPL ETE BLOOD COUNT lymphocyte,a bsolute 2.2 10*3/ uL 0.4-5. 1 normal Not Available [facility] [address] [place] [address], [address], 01/10/2024 19:12:34 01/10/2001/10/2024 COMPL ETE BLOOD COUNT monocyte,abs olute 0.3 10*3/ uL 0.0-1. 2 normal Not Available [facility] [address] [place] [address], [address], 01/10/2024 19:12:34 01/10/20 24 01/10/2024 COMPL ETE BLOOD COUNT eosinophil,a bsolute 0.1 10*3/ uL 0.0-0. 8 normal Not Available [facility] [address] [place] [address], [address], 01/10/2024 19:12:34 01/10/2001/10/2024 COMPL ETE BLOOD COUNT basophil,abs olute 0.1 10*3/ uL 0.0-0. 3 normal Not Available [facility] [address] [place] [address], [address], 01/10/2024 19:12:34 01/10/20 24 01/10/2024 COMPL ETE BLOOD COUNT % neutrophils 50.1 % 42.0-7 8.0 normal Not Available [facility] [address] [place] [address], [address], 01/10/2024 19:12:34 01/10/20 24 01/10/2024 COMPL ETE BLOOD COUNT % lymphocytes 42.6 % 11.0-4 7.0 normal Not Available [facility] [address] [place] [address], [address], 01/10/2024 19:12:34 01/10/20 24 01/10/2024 COMPL ETE BLOOD COUNT % monocytes 5.3 % 0.0-11 .0 normal Not Available [facility] [address] [place] [address], [address], 01/10/2024 19:12:34 01/10/20 24 01/10/2024 COMPL ETE BLOOD COUNT % eosinophils 1.0 % 0.0-7. 0 normal Not Available [facility] [address] [place] [address], [address], 01/10/2024 19:12:34 01/10/20 24 01/10/2024 COMPL ETE BLOOD COUNT % basophils 1.0 % 0.0-3. 0 normal Not Available [facility] [address] [place] [address], [address], 01/10/2024 19:12:34 01/10/20 24 01/10/2024 COMPL ETE BLOOD COUNT nucleated red cells 0.0 % 0.0-0. 9 normal Not Available [facility] [address] [place] [address], [address], 01/10/2024 19:12:34 01/10/20 24 01/10/2024 COMPL ETE BLOOD COUNT nucleated RBCs, absolute 0.00 10*3/ uL not estab. normal Not Available [facility] [address] [place] [address], [address], 01/10/2024 19:12:34 01/10/20 24 01/10/2024 TESTO STERO NE, TOTAL testosterone , total >1500 NG/dL 249-83 6 high Refer ence range is for age 20-49 years . Not Available [facility] [address] [place] [address], [address], 01/10/2024 19:50:00 01/19/20 24 01/19/2024 COMPL ETE BLOOD COUNT white blood cells 4.1 10*3/ uL 3.8-10 .8 normal Not Available [facility] [address] [place] [address], [address], 01/19/2024 15:19:11 01/19/2001/19/2024 COMPL ETE BLOOD COUNT red blood cells 4.74 10*6/ uL 4.20-5 .80 normal Not Available [facility] [address] [place] [address], [address], 01/19/2024 15:19:11 01/19/2001/19/2024 COMPL ETE BLOOD COUNT hemoglobin 13.7 g/dL 14.0-1 8.0 low Not Available [facility] [address] [place] [address], [address], 01/19/2024 15:19:11 01/19/20 24 01/19/2024 COMPL ETE BLOOD COUNT hematocrit 40.0 % 40.0-5 2.0 normal Not Available [facility] [address] [place] [address], [address], 01/19/2024 15:19:11 01/19/2001/19/2024 COMPL ETE BLOOD COUNT MCV 84 fL 80-100 normal Not Available [facility] [address] [place] [address], [address], 01/19/2024 15:19:11 01/19/2001/19/2024 COMPL ETE BLOOD COUNT MCH 29 pg 26-35 normal Not Available [facility] [address] [place] [address], [address], 01/19/2024 15:19:11 01/19/2001/19/2024 COMPL ETE BLOOD COUNT MCHC 34 g/dL 32-36 normal Not Available [facility] [address] [place] [address], [address], 01/19/2024 15:19:11 01/19/20 24 01/19/2024 COMPL ETE BLOOD COUNT RDW 14.7 % 11.0-1 5.0 normal Not Available [facility] [address] [place] [address], [address], 01/19/2024 15:19:11 01/19/20 24 01/19/2024 COMPL ETE BLOOD COUNT MPV 8.1 fL 6.2-10 .5 normal Not Available [facility] [address] [place] [address], [address], 01/19/2024 15:19:11 01/19/20 24 01/19/2024 COMPL ETE BLOOD COUNT platelet count 73 10*3/ uL 150-40 0 low Not Available [facility] [address] [place] [address], [address], 01/19/2024 15:19:11 01/19/20 24 01/19/2024 COMPL ETE BLOOD COUNT neutrophil,a bsolute 1.8 10*3/ uL 1.6-8. 4 normal Not Available [facility] [address] [place] [address], [address], 01/19/2024 15:19:11 01/19/2001/19/2024 COMPL ETE BLOOD COUNT lymphocyte,a bsolute 1.9 10*3/ uL 0.4-5. 1 normal Not Available [facility] [address] [place] [address], [address], 01/19/2024 15:19:11 01/19/2001/19/2024 COMPL ETE BLOOD COUNT monocyte,abs olute 0.3 10*3/ uL 0.0-1. 2 normal Not Available [facility] [address] [place] [address], [phone], 01/19/2024 15:19:11 01/19/20 24 01/19/2024 COMPL ETE BLOOD COUNT eosinophil,a bsolute 0.1 10*3/ uL 0.0-0. 8 normal Not Available [facility] [address] [place] [address], [address], 01/19/2024 15:19:11 01/19/20 24 01/19/2024 COMPL ETE BLOOD COUNT basophil,abs olute 0.0 10*3/ uL 0.0-0. 3 normal Not Available [facility] [address] [place] [address], [address], 01/19/2024 15:19:11 01/19/20 24 01/19/2024 COMPL ETE BLOOD COUNT % neutrophils 44.3 % 42.0-7 8.0 normal Not Available [facility] [address] [place] [address], [address], 01/19/2024 15:19:11 01/19/20 24 01/19/2024 COMPL ETE BLOOD COUNT % lymphocytes 46.0 % 11.0-4 7.0 normal Not Available [facility] [address] [place] [address], [address], 01/19/2024 15:19:11 01/19/20 24 01/19/2024 COMPL ETE BLOOD COUNT % monocytes 6.8 % 0.0-11 .0 normal Not Available [facility] [address] [place] [address], [address], 01/19/2024 15:19:11 01/19/20 24 01/19/2024 COMPL ETE BLOOD COUNT % eosinophils 2.2 % 0.0-7. 0 normal Not Available [facility] [address] [place] [address], [address], 01/19/2024 15:19:11 01/19/20 24 01/19/2024 COMPL ETE BLOOD COUNT % basophils 0.7 % 0.0-3. 0 normal Not Available [facility] [address] [place] [address], [address], 01/19/2024 15:19:11 01/19/20 24 01/19/2024 COMPL ETE BLOOD COUNT nucleated red cells 0.1 % 0.0-0. 9 normal Not Available [facility] [address] [place], [address], 01/19/2024 15:19:11 01/19/20 24 01/19/2024 COMPL ETE BLOOD COUNT nucleated RBCs, absolute 0.01 10*3/ uL not estab. normal Not Available [facility] [address] [place] [address], [address], 01/19/2024 15:19:11 01/19/20 24 01/19/2024 PROTH ROMBI N TIME prothrombin time 11.1 secon ds 9.2-11 .0 high Not Available [facility] [address] [place] [address], [address], 01/19/2024 15:38:47 01/19/20 24 01/19/2024 PROTH ROMBI N TIME INR 1.1 2.0-3. 0 low INR OF 2.0 TO 3.0 RECOM BAKARI D FOR: PROPH YLAXI S AND TREAT MENT OF VENOU S THROM BOSIS TREAT MENT OF PULMO NARY EMBOL ISM PREVE NTION OF SYSTE STEPHEN EMBOL ISM TISSU E HEART VALVE S, VALVU LAR HEART DISEA SE ACUTE MYOCA RDIAL INFAR CTION , ATRIA L FIBRI LLATI ON INR OF 2.5 TO 3.5 RECOM BAKARI D FOR: RECUR RENT SYSTE STEPHEN EMBOL ISM MECHA NICAL PROST HETIC VALVE S Not Available [facility] [address] [place] [address], [address], 01/19/2024 15:38:47 01/19/20 24 01/19/2024 COMP. METAB OLIC PANEL glucose 86 mg/dL 74-100 normal Not Available [facility] [address] [place] [address], [address], 01/19/2024 15:53:05 01/19/20 24 01/19/2024 COMP. METAB OLIC PANEL blood urea nitrogen 12 mg/dL 6-20 normal Not Available [facility] [address] [place] [address], [address], 01/19/2024 15:53:05 01/19/20 24 01/19/2024 COMP. METAB OLIC PANEL creatinine 0.80 mg/dL 0.70-1 .28 normal Not Available [facility] [address] [place] [address], [address], 01/19/2024 15:53:05 01/19/20 24 01/19/2024 COMP. METAB OLIC PANEL BUN/creatini ne ratio 15 (calc ) 10-20 normal Not Available [facility] [address] [place] [address], [address], 01/19/2024 15:53:05 01/19/20 24 01/19/2024 COMP. METAB OLIC PANEL sodium 136 mmol/ L 136-14 5 normal Not Available [facility] [address] [place] [address], [address], 01/19/2024 15:53:05 01/19/20 24 01/19/2024 COMP. METAB OLIC PANEL potassium 4.3 mmol/ L 3.4-5. 0 normal Not Available [facility] [address] [place] [address], [address], 01/19/2024 15:53:05 01/19/20 24 01/19/2024 COMP. METAB OLIC PANEL chloride 101 mmol/ L 98-107 normal Not Available [facility] [address] [place] [address], [address], 01/19/2024 15:53:05 01/19/20 24 01/19/2024 COMP. METAB OLIC PANEL carbon dioxide 22 mmol/ L 22-31 normal Not Available [facility] [address] [place] [address], [address], 01/19/2024 15:53:05 01/19/20 24 01/19/2024 COMP. METAB OLIC PANEL anion gap 13 (calc ) 7-25 normal Not Available [facility] [address] [place] [address], [address], 01/19/2024 15:53:05 01/19/20 24 01/19/2024 COMP. METAB OLIC PANEL calcium 9.1 mg/dL 8.6-10 .2 normal Not Available [facility] [address] [place] [address], [address], 01/19/2024 15:53:05 01/19/20 24 01/19/2024 COMP. METAB OLIC PANEL total protein 7.2 g/dL 6.4-8. 3 normal Not Available [facility] [address] [place] [address], [address], 01/19/2024 15:53:05 01/19/20 24 01/19/2024 COMP. METAB OLIC PANEL albumin 3.8 g/dL 3.5-5. 2 normal Not Available [facility] [address] [place] [address], [address], 01/19/2024 15:53:05 01/19/20 24 01/19/2024 COMP. METAB OLIC PANEL globulin 3.4 1.5-4. 5 normal Not Available [facility] [address] [place] [address], [address], 01/19/2024 15:53:05 01/19/20 24 01/19/2024 COMP. METAB OLIC PANEL albumin/glob ulin ratio 1.1 (calc ) 1.1-2. 5 normal Not Available [facility] [address] [place] [address], [address], 01/19/2024 15:53:05 01/19/20 24 01/19/2024 COMP. METAB OLIC PANEL bilirubin, total 0.7 mg/dL 0.1-1. 2 normal Not Available [facility] [address] [place] [address], [address], 01/19/2024 15:53:05 01/19/20 24 01/19/2024 COMP. METAB OLIC PANEL alkaline phosphatase 78 U/L 40-129 normal Not Available [facility] [address] [place], [address], 01/19/2024 15:53:05 01/19/20 24 01/19/2024 COMP. METAB OLIC PANEL AST 97 U/L 0-40 high Not Available [facility] [address] [place], [address], 01/19/2024 15:53:05 01/19/20 24 01/19/2024 COMP. METAB OLIC PANEL ALT 67 U/L 0-41 high Not Available [facility] [address] [place], [address], 01/19/2024 15:53:05 01/19/20 24 01/19/2024 COMP. METAB OLIC PANEL GFR 118 >= 60 normal NOT E New calcu latio n for GFR (CKD- EPI 2020) is formu lated witho ut race adjus tment facto rs at the recom menda tion of the [employer] at[employer] and Ameri can Socie ty of Nephr ology . This calcu latio n has not been valid ated in pregn ant women . For anna rodrigueze nts refer to https ://rodríguez mcmillan.o stuart/madelin gray s/KDO QI/gf r_cal culat orPed Not Available [facility] [address] [place] [address], [address], 01/19/2024 15:53:05 01/19/20 24 01/21/2024 HEPAT ITIS C RNA, QT, PCR HCV RNA, qt, IU/mL SEE BELOW IU/mL not detect ed normal <15 NOT DETEC HANNAH Not Available [facility] [address] [place], [address], 01/21/2024 15:54:51 01/19/20 24 01/21/2024 HEPAT ITIS C RNA, QT, PCR HCV RNA, qt, log IU/mL SEE BELOW log_I U/mL not detect ed normal <1.18 NOT DETEC HANNAH For addit ional infor nenita meade e refer to http: //[facility] jacobson stdia gnost ics.c om/fa q/FAQ 22v1 (This link is being provi ded for infor mirela hess/ educa wiliam l purpo ses only. ) Not Available [facility] [address] [facility], [place], [address], 01/21/2024 15:54:51 10/04/19 24 10/04/2023 US, abdom en, compl ete [facility] [address] [place] [address] Patieugenie t Name: HUNTER sneed : 989 Patieugenie t 20 Orderi ng Provid er: ORTEGA Dutton EXAM DATE: 2023 EXAM: US ABDOME N COMPLE TE CLINIC AL INFORM ATION: Elevat ed liver functi on tests TECHNI QUE: Multip le sonogr aphic images of the abdome n were obtain ed. COMPAR LEA: None. FINDIN GS: LIVER: There is increa se in size over the 23 cm.. No obviou s focal lesion . BILIAR Y SYSTEM : No stones visual ized. No intrah epatic biliar y dilata tion. CBD measur ement = 7 mm. Normal in size. PANCRE : Not well visual ized. RIGHT KIDNEY : Length = 16.2 cm. No hydron ephros is, mass or stone. Small stones cannot be exclud ed LEFT KIDNEY : Length = 16.0 cm. No hydron ephros is, mass or stone. Small stones cannot be exclud ed SPLEEN : Length = 21.5 cm. Normal in size echoge nicity and echote xture. No obviou s focal lesion . AORTA: Normal in diamet er and course withou t eviden ce of aneury sm. IMPRES JEREMY: There is hepato spleno megaly .. Stones cannot be exclud ed of the kidney s Interp reted By: Tree durand Electr onical ly Signed By: Tree durand on 024 11:22 AM [facility] [address] [place], [address], 10/07/2023 17:21:44 Result Notes None recorded. Procedures Surgical History None recorded. Imaging Results Imaging Date Name Status LastModified by Organiz ation Details LastModified Time 10/04/2023 US, abdomen, complete completed [facility] [address] [place], [address], 10/07/2023 17:21:44 Procedure Notes None recorded. Medical Equipment None Reported. Allergies No known [...] Details Last Updated DateTime 4 187.96 cm 42.5 kg/m2 851197. 07 g 98 /min 124 mm[Hg] 80 mm[Hg] Claudia Contreras [facility] 4 10:55:25 Date Recorded Body height Body mass index (BMI) Body weight Heart rate Systolic blood pressure Diastolic blood pressure Provider Name and Address Organization Details Last Updated DateTime 4 187.96 cm 42.8 kg/m2 804741. 26 g 90 /min 122 mm[Hg] 78 mm[Hg] Bharti Gould [facility] 4 10:33:10 Date Recorded Body height Body mass index (BMI) Body weight Provider Name and Address Organization Details Last Updated DateTime 10/20/2023 187.96 cm 43.4 kg/m2 622829.22 g Mary Cole [facility] 10/20/2023 12:40:28 Date Recorded Body height Body mass index (BMI) Body weight Heart rate Systolic blood pressure Diastolic blood pressure Provider Name and Address Organization Details Last Updated DateTime 4 187.96 cm 42.8 kg/m2 562178. 26 g 88 /min 138 mm[Hg] 70 mm[Hg] Mena Mukherjee [facility] 4 11:03:13 Date Recorded Body height Body mass index (BMI) Body weight Respiratory rate Heart rate Systolic blood pressure Diastolic blood pressure Provider Name and Address Organization Details Last Updated DateTime 4 187.96 cm 41 kg/m2 027159. 97 g 16 /min 84 /min 154 mm[Hg] 84 mm[Hg] Jarroddaisy Kade [facility] 4 15:40:16 Social History Question Answer Notes LastModified by Organizat ion Details LastModified Time Tobacco Smoking Status Former Smoker Jarroddaisy Kade [facility] 09/08/2023 08:41:09 What Is Your Level Of Alcohol Consumption? Moderate [email or web address] Information not available 09/08/2023 Are You Currently Employed? Yes [email or web address] Information not available 09/08/2023 Do You Or Have You Ever Used E-cigarettes Or Vape? Current User Of Electronic Cigarettes [email or web address] Information not available 09/08/2023 What Is Your Occupation? [employer] Information not available 09/08/2023 When Did You Quit Smoking? 1-5yearssincel rekha [email or web address] Information not available 09/08/2023 What Was The Date Of Your Most Recent Tobacco Screening? 10/20/2023 [email or web address] Information not available 10/20/2023 What Is Your Current Pack Years? 30ormorepackmer polk [email or web address] Information not available 09/08/2023 What Is Your Relationship Status? [email or web address] Information not available 09/08/2023 At What Age Did You Start Smoking Tobacco? 14 [email or web address] Information not available 09/08/2023 Do You Or Have You Ever Used Smokeless Tobacco? Never Used Smokeless Tobacco [email or web address] Information not available 09/08/2023 How Much Tobacco Do You Smoke? No [email or web address] Information not available 09/08/2023 Do You Use Any Illicit Or Recreational Drugs? No [email or web address] Information not available 09/08/2023 Has Tobacco Cessation Counseling Been Provided? No [email or web address] Information not available 09/08/2023 How Many Years Have You Smoked Tobacco? 15 Information not available 09/08/2023 Do You Or Have You Ever Used Any Other Forms Of Tobacco Or Nicotine? Yes [email or web address] Information not available 09/08/2023 Sex: Unknown Functional [...] Diagnosis/Indication Diagnosis SNOMED-CT Code Diagnosis ICD10 Code 24092540 ORTEGA YING APRN GASTRO [address] [place] [address] 1 09/08/2023 08:31:53 09/08/2023 14:28:28 Liver enzymes level above reference range 700801944 R74.01 [id number] LUIS FELIPE DICKSON APRN ENDOCRINO LOGY [address] [place] [address]238704[address] 1 09/17/2023 10:34:22 09/17/2023 11:16:55 Testosterone level below reference range 848066201 R89.1 Reduced libido 4354118 R 68.82 Gynecomastia 1631175 N62 [id number] JUSTA US MD ENDOCRINO LOGY [facility] [address] [place] [address] 1 10/01/2023 10:24:12 10/01/2023 13:35:25 Male hypogonadism 17396697 E29.1 [id number] [place] [address] [place] [address] 1 10/20/2023 12:29:03 10/20/2023 13:07:32 Viral hepatitis C 85128004 B19.20 Cirrhosis of liver 007 K74.60 Non-alcoho lic fatty liver 681932389 K76.0 [id number] JUSTA US MD ENDOCRINO LOGY [address] [place] [address] 1 12/31/2023 10:54:11 01/01/2024 04:21:08 Male hypogonadism 47474362 E29.1 [id number] LETITIA HICKS MD GASTRO [address] [place] [address] 1 02/17/2024 15:36:23 02/17/2024 15:56:17 Viral hepatitis C 78366215 B19.20 Cirrhosis of liver 007 K74.60 Non-alcoho lic fatty liver 546524269 K76.0 Peripheral edema 3348582 00 R60.9 Health Concerns Section Related Observation LastModified by Organization Detai ls LastModified Time None Recorded Concern Status LastModified by Organization Details LastModified Time None Recorded Advance Directives Directive None Recorded Payers Encounter Date Sequence Insurance Name Policy Number Policy King Covered Member ID King Member ID Guarantor Name 09/17/2023 1 [employer] [facility] (MEDICAID REPLACEMENT - HMO) Hunter Sharp [id number] Hunter Sharp 10/01/2023 1 [employer] [facility] (MEDICAID REPLACEMENT - HMO) Hunter Sharp [id number] Hunter Sharp 10/20/2023 1 [employer] [place] ([place]ICAID REPLACEMENT - HMO) Hunter Sharp [id number] Hunter De Guzman 12/31/2023 1 [employer] (MEDICAID REPLACEMENT - HMO) Hunter De Guzman [id number] Hunter De Guzman 02/17/[address] [facility] - [facility]) Hunter De Guzman [id number] Hunter De Guzman Notes Date Note Type Note Provider Name and Address Organization Details Recorded Time 4 text/htm l Mr. De Guzman is a 33 year old pleasant male with a medical history pf drug addiction, cellulitis, and MRSA. He is seen today by request of Grisel Lovett. 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 at age 18 he injured right leg and ended up with MRSA and had to have debridement.endorse no enegry, struggled with ED for a long timedrug addiction to heroin clean for 10 years currently on methadoneCurrently being followed by GI for abnormal liver function was suppose to schedule a sleep study he only gets about 4 -5 hours he states he does snore loudly. he states he will have the sleep study completed once he gets the testosterone and liver work up complete. Family history of liver disease on fathers side , on mothers side cardiac issues, denies any genetic disorders LUIS FELIPE DICKSON, [employer]NA[employer] [address] [place] [address], [address], [facility] 09/17/2023 16:36:32 4 text/htm l 33-year-old male patient with a past medical history as detailed in the problem is significant for morbid obesity, history of heroin addiction currently on methadone therapy, seen today as a follow-up visit severe hypogonadism evaluation further. Initially seen on 09/17/2023 History of heroin addiction and currently on maintenance methadone Reported the following symptoms Fatigue lack of energy Low libido Erectile dysfunction Loss of muscle mass He denies any previous history of venous thromboembolism. New history of coronary artery disease Denies any obstructive urinary symptoms JUSTA US MD [facility] [place], [address], [facility] 10/01/2023 12:28:33 4 text/htm l hep c type 3cirrhosis by u/s and fibrospectcompensatedhas not started therapy LETITIA HICKS MD [facility] [place], [address], [facility] 10/20/2023 13:05:10 4 text/htm l 33-year-old male patient with a past medical history [...] while on testosterone placement JUSTA US MD [address] [place] [place] [address], [phone], [facility] 12/31/2023 12:19:19 4 text/htm l feels wellno etohmuch better after hcv treatmentgoing to gym LETITIA HICKS MD [address] [place] [address], [phone], [facility] 02/17/2024 15:54:29
--- OUTSIDE RECORDS SUMMARY | 2024-03-04 13:38 | XMS_ITS | Encounter Summary ---
Author Organization Healthcare Address [address] [place] [address] Care Team Providers Care Galley Hand Name Role Phone Bijan Mancera MD Unavailable [phone] Encounter Details Date Type Department Care Team (Late st Contact Info) Description 08/28/2022 Outside Procedure External Location [address] [place] [address] Provider, Jake [place] Social History Tobacco Use Types Packs/Day Years [...] Description 03/21/2024 7:45 AM EST Clinical Support [facility] [address] [place] [address] 03/21/2024 9:20 AM EST Office Visit [facility] [address] [place] [address] Jean Greer MD [address] [place] [address] 03/21/2024 10:00 AM EST Office Visit [facility] [address] [place] [address] Surgeon, Transplant Liver documented as of this encounter Procedures Procedure Name Priority Date/Time Associated Diagnosis Comments XR CHEST 1 VIEW 08/28/2022 1:20 AM EDT documented in this encounter Results * XR Chest 1 View (08/28/2022 1:20 AM EDT) Anatomical Region Laterality Modality Chest Digital Radiogra phy 08/28/2022 1:20 AM EDT Narrative 08/28/2022 8:22 [place] [address] Name: KASEY BLOCK Exam Date: 08/28/2022 : 1990 Age 32 Gender: M Physician: OMI LOO Facility: [facility] Facility HSV: Outpatient Exam: CHEST PORTABLE SINGLE VIEW CHEST HISTORY: ??Chest pain COMPARISON: ??None FINDINGS: The cardiomedistinal silhouette ??is normal. ??There is scattered calcified residua of old granulomatous disease. ??The lungs are clear . ??No pneumothorax. ?? The osseous structures are unremarkable. IMPRESSION: ??No acute process. Images reviewed, interpreted, and dictated by Jean Marie Dominguez DO. Transcribed by Dimas Cheema PA-C Dictated By: ??JEAN MARIE DOMINGUEZ Transcribed By: Jean Marie Dominguez Transcribed On: 08/28/2022 8:10 AM Electronically signed by: JEAN MARIE DOMINGUEZ 08/28/2022 Thank you for referring KASEY BLOCK to [facility]. Legally authenticated by POPE JEAN MARIE Arango 2022-08-28 08:10:02 Procedure Note Provider, Generic [place] - 08/28/2022 [place] [address] Name: KASEY BLOCK Exam Date: 08/28/2022 : 1990 Age 32 Gender: M Physician: OMI LOO Facility: [facility] Facility HSV: Outpatient Exam: CHEST PORTABLE SINGLE VIEW CHEST HISTORY: Chest pain COMPARISON: None FINDINGS: The cardiomedistinal silhouette is normal. There isscattered calcified residua of old granulomatous disease. The lungs are clear .No pneumothorax. The osseous structures are unremarkable. IMPRESSION: No acute process. Images reviewed, interpreted, and dictated by Jean Marie Dominguez DO. Transcribedby Dimas Cheema PA-C Dictated By: JEAN MARIE DOMINGUEZ Transcribed By: Jean Marie Dominguez Transcribed On: 08/28/2022 8:10 AM Electronically signed by: JEAN MARIE DOMINGUEZ 08/28/2022 Thank you for referring KASEY BLOCK to [facility]. Legally authenticated by POPE JEAN MARIE Arango 2022-08-28 08:10:02 Generic [place] Provider IMG XR PROCEDURES Fi nal Result documented in this encounter Visit Diagnoses Not on filedocumented in this encounter Care Teams Galley Hand Relationship Specialty Start Date End Date Bijan Mancera MD [address] [place] [id number] Referring Physician Gastroenterology 02/23/24 documented as of this encounter
[2024-03-04 14:10] VITALS: BP 138/74; PULSE 65; RESP 20; TEMP 36.7; O2SAT 97; BMI 40.8
--- NOTE | 2024-03-04 14:25 | ED_ITS ---
Discharge Plan Disposition Patient Disposition: Home, Self-Care Condition: Good Prescriptions Prescriptions: New prednisone 20 mg tablet 20 mg PO BID Qty: 10 0RF No Action furosemide 40 mg tablet 40 mg PO DAILY Patient Comments: TAKE 1 TABLET BY MOUTH EVERY DAY spironolactone 100 mg tablet 100 mg PO DAILY Patient Comments: TAKE 1 TABLET BY MOUTH EVERY DAY testosterone cypionate 200 mg/mL oil 200 mg IM MONTHLY Patient Comments: INJECT 1 ML EVERY 3 WEEKS BY INTRAMUSCULAR ROUTE DIRECTED FOR 42 DAYS. losartan 100 mg tablet 100 mg PO DAILY Patient Comments: TAKE 1 TABLET BY MOUTH DAILY FOR BLOOD PRESSURE levocetirizine 5 mg tablet 5 mg PO DAILY Patient Comments: TAKE 1 TABLET BY MOUTH EVERY EVENING. FOR ALLERGIES Referrals Follow up/Referrals: Provider,Referral, MD [Primary Care Provider] - See instructions Activity Restrictions/Add. Instructions Additional Instructions/Restrictions: Tylenol and ibuprofen as needed for pain or fever Humidifier/vaporizer/hot steamy shower Follow-up with primary care Wednesday Follow-up immediately in the ER of the [facility] for new or worsening symptoms or no noticeable improvement over the next 48-72 hours. Stop smoking Start steroids today. Helps with inflammation therefore coughing and wheezing. Follow directions on package. Clinical Impressions Clinical Impression: Acute bronchitis Stand Alone Forms Stand Alone Forms: Work/School Release Instructions Patient Instructions: DI for Acute Bronchitis Print Language Print Language: Emirati Discharge ED Provider: Cindy ([facility])Am[place]o [facility] HPI General Stated complaint: cough, runny nose, weakness, congestion Mode of Arrival: Ambulatory Source of Information: Patient Limitations: No Limitations Time Seen by Provider: 03/04/24 14:21 Description of Symptoms (Recalled from Triage Doc. by RN): PATIENT C/O COUGH, CONGESTION, AND DRAINAGE SINCE LAST NIGHT HEENT Symptoms (Recalled from RN notes): Yes Resp Symptoms (Recalled from RN notes): Yes Skin Symptoms (Recalled from RN notes): No MS Symptoms (Recalled from RN notes): No Functional Status (Recalled from RN notes): WNL History of Present Illness Provider Complaint: 33-year-old male presents with complaints of cough, congestion, and drainage that started on Wednesday night. Patient states his daughter has been ill and was told she had a touch of pneumonia. Related Data Home Medications ?Medication ?Instructions ?Recorded ?Confirmed furosemide 40 mg tablet 40 mg PO DAILY 03/04/24 03/04/24 levocetirizine 5 mg tablet 5 mg PO DAILY 03/04/24 03/04/24 losartan 100 mg tablet 100 mg PO DAILY 03/04/24 03/04/24 spironolactone 100 mg tablet 100 mg PO DAILY 03/04/24 03/04/24 testosterone cypionate 200 mg/mL 200 mg IM MONTHLY 03/04/24 03/04/24 intramuscular oil Previous Rx's ?Medication ?Instructions ?Recorded prednisone 20 mg tablet 20 mg PO BID #10 tabs 03/04/24 Allergies Allergy/AdvReac Type Severity Reaction Status Date / Time No Known Allergies Allergy Verified 03/04/24 14:21 Worker's Comp Is this a Worker's Comp case?: No [facility] Disclaimer: The information contained in this section may have been updated after the patient was seen, as this information can be updated by other users. 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) Smoking Status: Unknown if ever smoked alcohol intake: former current occupational status: employed ROS Obtained: Yes Systems reviewed as appropriate & no additional complaints except as documented Physical Exam General General appearance: alert and in no apparent distress ENT ENT exam: Present normal exam, normal oropharynx, mucous membranes moist and TM's normal bilaterally Respiratory Respiratory exam: Present wheezes Cardiovascular Cardiovascular exam: Present regular rate and normal rhythm Neurological Exam Neurological exam: Present alert and oriented X3 Skin Skin exam: Present warm and intact Medical Decision Making Medical Records Medical records reviewed: Yes I reviewed the patient's medical records. Screening: Per USPSTF and CDC recommendations, given the prevalence of disease in our region, it is our hospital?s policy to screen for HIV and viral Hepatitis for all patients aged 18 and over and those with ongoing risk factors. Johnny Inquiry Pt receiving controlled substance: No Johnny was queried for this patient: No Vital Signs: 03/04/24 14:10 Temperature 98.0 F Temperature Source Oral Pulse Rate [Left Brachial] 65 Respiratory Rate 20 Blood Pressure [Left Arm] 138/74 Blood Pressure Mean [Left Arm] 95 Blood Pressure Source [Left Arm] Automatic Cuff Blood Pressure Position [Left Arm] Sitting 02 Sat by Pulse Oximetry 97 Oxygen Delivery Method Room Air
[2024-03-04 14:31] VITALS: BP 138/74; PULSE 65; RESP 20; TEMP 36.7; O2SAT 97
== END 2024-03-04 14:33 | disposition home or self-care (01) ==
PROVIDERS: Emergency Provider Nurse Practitioner Family
DX: J20.9 Acute bronchitis, unspecified (principal)
CPT/HCPCS: 99213; G0381